=== PATIENT | female | born 1960 | race Caucasian/White ===

== ENCOUNTER 2020-06-11 07:12 | Outpatient (REF) | payer OTHER, SELFPAY ==
[2020-06-11 07:40] LABS: MANUAL DIFF FLAG NO
[2020-06-11 07:46] LABS: Basophils Percent Auto 0.5 % (0-2); Eosinophils Absolute Auto 0.1 X10*3/uL (0.0-0.4); Eosinophils Percent Auto 2.3 % (0-4); Hematocrit 40.9 % (37-47); Hemoglobin 13.5 g/dl (12.0-16.0); Imm Gran Abs Auto 0.02 X10*3/uL (0.00-0.03); Imm Gran Pct Auto 0.5 % (0.0-0.4); Lymphocytes Absolute Auto 1.7 X10*3/uL (1.2-4.9); Lymphocytes Percent Auto 38.6 % (20-40); Mean Corpuscular Hemoglobin 32.5 pg (27.0-33.0); Mean Corpuscular Volume 98.3 fL (80-98); Monocytes Absolute Auto 0.4 X10*3/uL (0.1-1.2); Monocytes Percent Auto 8.2 % (2-11); Neutrophils Absolute Auto 2.1 X10*3/uL (2.0-8.3); Neutrophils Percent Auto 49.9 % (45-73); Platelet Count 238 X10*3/uL (160-400); Red Blood Count 4.16 X10*6/uL (4.20-5.50); Red Cell Distribution Width 13.2 % (11.0-16.0); White Blood Count 4.3 X10*3/uL (4.8-10.8)
[2020-06-11 08:36] LABS: Alanine Aminotransferase 30 U/L (0-31); Albumin Level 4.2 g/dL (3.5-5.0); Alkaline Phosphatase 79 U/L (39-117); Aspartate Amino Transferase 26 U/L (5-31); Bilirubin Total 0.7 mg/dL (0.0-1.0); Blood Urea Nitrogen 17 mg/dL (9-16); Calcium 8.8 mg/dL (8.4-10.2); Cholesterol 194 mg/dL; Estimated Glomerular Filt Rate > 60; Glucose Fasting 99 mg/dL (60-99); HDL Cholesterol 58 mg/dL; LDL Cholesterol Calculated 122 mg/dl; Total Protein 6.9 g/dL (6.5-8.0); Triglycerides 71 mg/dL
[2020-06-11 08:58] LABS: Anion Gap 11 (12-20); Carbon Dioxide 27 mmol/L (22-29); Chloride 105 mmol/L (96-108); Potassium 4.3 mmol/l (3.3-5.1); Sodium 139 mmol/L (135-145)
== END 2020-06-11 07:13 | disposition home or self-care (01) ==
LOC: HO.LAB 07:12
PROVIDERS: PCP Internal Medicine; Visit Provider Internal Medicine
DX: Z00.00 Encounter for general adult medical examination without abnormal findings (principal); E55.9 Vitamin D deficiency, unspecified
CPT/HCPCS: 36415; 80053; 80061; 82306; 85025

== ENCOUNTER 2020-07-30 14:05 | Outpatient (REF) | payer OTHER, SELFPAY | END 2020-07-30 14:06 | disposition home or self-care (01) | LOC: HO.LNP 14:05 | PROVIDERS: Visit Provider Internal Medicine | DX: Z20.828 Contact with and (suspected) exposure to other viral communicable diseases (principal) | CPT/HCPCS: U0003 ==

== ENCOUNTER 2020-08-19 14:44 | Outpatient (REF) | payer OTHER, SELFPAY | END 2020-08-19 14:45 | disposition home or self-care (01) | LOC: HO.LNP 14:44 | PROVIDERS: Visit Provider Internal Medicine | DX: Z20.822 Contact with and (suspected) exposure to COVID-19 (principal) | CPT/HCPCS: U0003 ==

== ENCOUNTER 2021-06-05 09:01 | Outpatient (REF) | payer OTHER, SELFPAY ==
--- NOTE | ~2021-06-05 | MM_ITS ---
EXAMINATION: BONE DENSITOMETRY CLINICAL INDICATION: Osteopenia. COMPARISON: Previous BD dated 06/07/2018 and baseline BD dated 04/05/2012. TECHNIQUE: Using a [employer] DXA System (software version: 13.1) manufactured by [employer], dual-energy x-ray absorptiometry was performed of the lumbar spine and left hip. The images are of good technical quality. Summary results are attached. FINDINGS: AP SPINE L1-L4: Current: BMD 0.892 g/cm2, Z-score -0.6, T-score -2.4, osteopenia, 4.1% decrease from previous, 15.2% decrease from baseline (<5% change is not significant). Prior: BMD 0.930 g/cm2. Baseline: BMD 1.052 g/cm2. LEFT FEMUR, NECK: Current: BMD 0.638 g/cm2, Z-score -1.2, T-score -2.9, osteoporosis. Prior: BMD 0.690 g/cm2. Baseline: BMD 0.751 g/cm2. LEFT FEMUR, TOTAL: Current: BMD 0.741 g/cm2, Z-score -0.7, T-score -2.1, osteopenia, 5.6% decrease from previous, 10.5% decrease from baseline (<5% change is not significant). Prior: BMD 0.785 g/cm2. Baseline: BMD 0.828 g/cm2. IDENTIFIED RISK FACTORS: Osteoporosis, menopause. HISTORY OF FRACTURE: None listed. MEDICATIONS: Calcium supplements or multivitamin, vitamin D. MM/XR DEXA axial skeleton IMPRESSION: 1. DIAGNOSIS: Osteoporosis based on the lowest T-score value of -2.9 in the femoral neck applying World Health Organization criteria. 2. 2. 10-YEAR FRACTURE RISK PREDICTION, FRAX: According to the guidelines, FRAX calculation should only be performed on patients in the osteopenia bone density category. Therefore, FRAX was not performed on this patient. 3. Treatment Recommendations: NOF guidelines recommend consideration for treatment in postmenopausal women and men age 50 and older presenting with the following: -A hip or vertebral (clinical or morphometric) fracture. -T-score less than or equal to -2.5 at the femoral neck or spine after appropriate evaluation to exclude secondary causes. -Low bone mass at the hip or spine and a 10-year fracture probability by FRAX of greater than or equal to 3% for hip fracture or greater than or equal to 20% for major osteoporotic fracture based on the [place] adapted WHO algorithm. 4. Other Recommendations: All treatment decisions require clinical judgment and consideration of individual patient factors, including patient preferences, comorbidities, previous drug use, risk factors not captured in the FRAX model (e.g. frailty, falls, vitamin D deficiency, increased bone turnover, interval significant decline in bone density) and possible under or overestimation of fracture risk by FRAX. Additional medical evaluation for secondary cause of low bone mineral density may be appropriate. FUTURE SCAN RECOMMENDATION: People with diagnosed cases of osteoporosis or at high risk for fracture should have regular bone mineral density tests. For patients eligible for Medicare, routine testing is allowed once every 2 years. The testing frequency can be increased to one year for patients who have rapidly progressing disease, those who are receiving or discontinuing medical therapy to restore bone mass, or have additional risk factors.
[2021-06-05 10:51] LABS: MANUAL DIFF FLAG NO
[2021-06-05 11:18] LABS: Basophils Percent Auto 0.4 % (0-2); Eosinophils Absolute Auto 0.2 X10*3/uL (0.0-0.4); Eosinophils Percent Auto 2.4 % (0-4); Hematocrit 43.5 % (37-47); Hemoglobin 14.2 g/dl (12.0-16.0); Imm Gran Abs Auto 0.04 X10*3/uL (0.00-0.03); Imm Gran Pct Auto 0.6 % (0.0-0.4); Lymphocytes Absolute Auto 1.7 X10*3/uL (1.2-4.9); Mean Corpuscular HGB Conc 32.6 g/dl (31.0-35.0); Mean Corpuscular Hemoglobin 31.3 pg (27.0-33.0); Mean Platelet Volume 11.3 fL (9.4-12.3); Monocytes Absolute Auto 0.5 X10*3/uL (0.1-1.2); Monocytes Percent Auto 7.3 % (2-11); Neutrophils Absolute Auto 4.7 X10*3/uL (2.0-8.3); Neutrophils Percent Auto 65.3 % (45-73); Platelet Count 304 X10*3/uL (160-400); Red Blood Count 4.53 X10*6/uL (4.20-5.50); Red Cell Distribution Width 13.2 % (11.0-16.0); White Blood Count 7.2 X10*3/uL (4.8-10.8)
[2021-06-05 11:58] LABS: Alanine Aminotransferase 24 U/L (0-31); Albumin Level 4.5 g/dL (3.5-5.0); Alkaline Phosphatase 95 U/L (39-117); Anion Gap 12 (12-20); Aspartate Amino Transferase 25 U/L (5-31); Bilirubin Total 0.9 mg/dL (0.0-1.0); Blood Urea Nitrogen 13 mg/dL (9-16); Calcium 9.9 mg/dL (8.4-10.2); Carbon Dioxide 27 mmol/L (22-29); Chloride 105 mmol/L (96-108); Cholesterol 213 mg/dL; Estimated Glomerular Filt Rate > 60; Glucose Fasting 88 mg/dL (60-99); HDL Cholesterol 56 mg/dL; LDL Cholesterol Calculated 139 mg/dl; Potassium 4.1 mmol/L (3.3-5.1); Sodium 140 mmol/L (135-145); Total Protein 7.6 g/dL (6.5-8.0); Triglycerides 93 mg/dL
[2021-06-05 12:33] LABS: Vitamin D 25-OH Total 34.2 ng/mL (>30)
== END 2021-06-05 09:02 | disposition home or self-care (01) ==
LOC: HO.MAMMO 09:01
PROVIDERS: Visit Provider Internal Medicine
DX: Z13.820 Encounter for screening for osteoporosis (principal); M81.0 Age-related osteoporosis without current pathological fracture; Z78.0 Asymptomatic menopausal state; Z79.899 Other long term (current) drug therapy
CPT/HCPCS: 36415; 77080; 80053; 80061; 82306; 85025

== ENCOUNTER 2021-09-27 07:25 | Outpatient (REF) | payer OTHER, SELFPAY ==
[2021-09-27 08:27] LABS: Cholesterol 193 mg/dL; HDL Cholesterol 48 mg/dL; LDL Cholesterol Calculated 130 mg/dl; Triglycerides 79 mg/dL
== END 2021-09-27 07:26 | disposition home or self-care (01) ==
LOC: HO.LAB 07:25
PROVIDERS: PCP Internal Medicine; Visit Provider Internal Medicine
DX: E78.00 Pure hypercholesterolemia, unspecified (principal)
CPT/HCPCS: 36415; 80061

== ENCOUNTER 2021-12-08 14:04 | Outpatient (REF) | payer OTHER, SELFPAY ==
--- NOTE | ~2021-12-08 | XR_ITS ---
EXAMINATION: XR SINUSES CLINICAL INFORMATION: Persistent nosebleeds. COMPARISON: None TECHNIQUE: 5 views of the sinuses. FINDINGS: Paranasal sinuses appear clear without air-fluid levels. No fractures are identified. No radiodense foreign bodies. No significant mucosal thickening is appreciated. The left mastoid air cells appear well aerated. There is question of some opacification of a few right mastoid air cells. XR/XR sinus min 3V IMPRESSION: No evidence of acute sinusitis.
== END 2021-12-08 14:05 | disposition home or self-care (01) ==
LOC: HO.XRAY 14:04
PROVIDERS: PCP Internal Medicine; Visit Provider Internal Medicine
DX: R04.0 Epistaxis (principal)
CPT/HCPCS: 70220

== ENCOUNTER 2022-02-27 09:44 | Day surgery (SDC) | payer OTHER, SELFPAY ==
--- NOTE | 2022-02-26 09:17 | P.CONAN_ITS ---
Documented by User: Aleah Linares NP 02/26/22 09:17 HPI - Anesthesia Eval Consult details Narrative: 62yo F for Colonoscopy [facility] Past Medical History Medical History History of right bundle branch block (RBBB) HTN (hypertension) Surgical History Surgical History Hx of colonoscopy Social History Social History Patient Tobacco Use Status: Never used Tobacco Use of substances other than those prescribed or required for medical reasons: No Are you DNR?: No Advance Directives: No Advance Directives Information Provided: Yes Meds Allergies Allergy/AdvReac Type Severity Reaction Status Date / Time No Known Allergies Allergy Unverified 05/02/20 16:02 Home Medications Medication Instructions Recorded Confirmed Last Taken Type amlodipine 5 mg tablet 1 tab PO DAILY 02/23/22 02/27/22 02/27/22 History Exam Exam Date and Time: February 26, [id number] Assessment and Plan Assessment Anesthesia Assessment: Chart Reviewed Documented by User: Moe Sanchez MD 02/27/22 13:05 [facility] Past Medical History Medical History History of right bundle branch block (RBBB) HTN (hypertension) Family History Family history of problems with anesthesia: No Surgical History Surgical History Hx of colonoscopy History of Problems with Anesthesia: Yes (PONV) Social History Social History Patient Tobacco Use Status: Never used Tobacco Use of substances other than those prescribed or required for medical reasons: No Are you DNR?: No Advance Directives: No Advance Directives Information Provided: Yes Meds Allergies Allergy/AdvReac Type Severity Reaction Status Date / Time No Known Allergies Allergy Unverified 05/02/20 16:02 Home Medications Medication Instructions Recorded Confirmed Last Taken Type amlodipine 5 mg tablet 1 tab PO DAILY 02/23/22 02/27/22 02/27/22 History Exam Airway Mallampati Class: IV TM Dist: >3cm Neck ROM: Full Loose/Missing/Broken Teeth: Yes Heart: S1,S2 Lungs: b/l breath sounds Assessment and Plan Assessment Anesthesia Assessment: Anesthesia Plan Discussed Final Anesthetic Review Family History of Problems with Anesthesia: No History of Problems with Anesthesia: Yes (PONV) NPO: Yes ASA Class: II Final Preanesthetic Review: Meds/Allgs Chart Reviewed, Consent Obtained/Reviewed and Anes Risks/Benef Reviewed Patient Risk: Intermediate Procedure Risk: Intermediate Anesthetic Plan Anesthetic Plan: MAC: Disposition: Standard PACU
[2022-02-27 10:37] VITALS: BP 129/76; PULSE 61; RESP 17; TEMP 36.8; O2SAT 100; BMI 20.1
--- NOTE | 2022-02-27 10:58 | MHC.SHP ---
Pre-Procedural Eval Section A Date of Service: 02/27/22 The patient is an INPATIENT: No Changes since office visit: No Cold of Flu in the past 2 weeks, No New Medical Problems, No Changes in Medication and No Patient answered all questions The History & Physical has been completed within 30 days and I have reviewed it.: Yes Section B Chief Complaint: screening Allergies: Allergies Allergy/AdvReac Type Severity Reaction Status Date / Time No Known Allergies Allergy Unverified 05/02/20 16:02 Plan I have reviewed the history and physical and performed a pertinent physical examination on my patient. No changes have occurred unless specified.
[2022-02-27] MEDS: Lactated Ringers 1,000 ML 100 ML IVCONT (11:06)
--- NOTE | 2022-02-27 11:33 | P.BOP_ITS ---
Brief Operative Note Date of Service: 02/27/22 Pre-op diagnosis: screening Post-op diagnosis: same Procedure: colonoscopy Surgeon: Danny Hopper Anesthesia: MAC Was an Sectional [employer]er used for this Procedure?: No Estimated blood loss (mL): 0 Pathology: none sent Condition: stable Disposition: PACU
[2022-02-27 11:38] VITALS: BP 86/54; PULSE 65; RESP 16; TEMP 36.4; O2SAT 96
[2022-02-27 11:45] VITALS: BP 112/64
[2022-02-27 11:53] VITALS: BP 121/73; PULSE 63; RESP 18; O2SAT 100
[2022-02-27 12:07] VITALS: BP 132/67; PULSE 65; RESP 17; TEMP 36.1; O2SAT 100
--- NOTE | 2022-02-27 21:58 | OP_ITS ---
SURGEON: Danny Hopper MD INDICATIONS: Colon cancer screening. PREOPERATIVE DIAGNOSIS: POSTOPERATIVE DIAGNOSIS: PROCEDURE PERFORMED: Colonoscopy to the cecum. ESTIMATED BLOOD LOSS: COMPLICATIONS: ANESTHESIA: ASSISTANTS: SPECIMENS: MEDICATIONS: Monitored anesthesia care. DESCRIPTION OF PROCEDURE: History and physical were performed. The risks and benefits of the procedure were explained to the patient. Informed consent was obtained. The patient was placed in the left lateral decubitus position. A digital rectal exam was performed and was found to be normal. The Olympus pediatric video colonoscope was introduced into the rectum and advanced to the cecum without difficulty. The cecum was identified by transillumination, palpation, and identification of ileocecal valve. Examination was performed and the scope was removed. She tolerated the procedure well and was taken to recovery area in stable condition. FINDINGS: The terminal ileum was not examined. The visualized colonic mucosa was normal. The quality of the prep was good. No polyps were identified. There was minimal sigmoid diverticulosis. Retroflexed examination showed some small internal hemorrhoids. IMPRESSION: Normal screening colonoscopy. RECOMMENDATION: 1. Follow up as needed. 2. Repeat colonoscopy is recommended in 10 years for average risk individuals. MD ASHLYN Luevano/CLEO / [id number]
== END 2022-02-27 12:23 | disposition home or self-care (01) ==
PROVIDERS: PCP Internal Medicine; Visit Provider Internal Medicine Gastroenterology
PROC: 0DJD8ZZ Inspection of Lower Intestinal Tract, Via Natural or Artificial Opening Endoscopic (ICD-10-PCS; CPT 45378; principal; 2022-02-27 11:10)
DX: Z12.11 Encounter for screening for malignant neoplasm of colon (principal); K57.30 Diverticulosis of large intestine without perforation or abscess without bleeding; K64.8 Other hemorrhoids; I10 Essential (primary) hypertension; Z79.899 Other long term (current) drug therapy; Z86.16 Personal history of COVID-19
CPT/HCPCS: 45378

== ENCOUNTER 2022-06-11 07:30 | Outpatient (REF) | payer OTHER, SELFPAY ==
[2022-06-11 10:48] LABS: MANUAL DIFF FLAG NO
[2022-06-11 11:00] LABS: Basophils Percent Auto 0.6 % (0-2); Eosinophils Absolute Auto 0.1 X10*3/uL (0.0-0.4); Eosinophils Percent Auto 1.9 % (0-4); Hematocrit 39.5 % (37.0-47.0); Hemoglobin 13.1 g/dl (12.0-16.0); Imm Gran Abs Auto 0.01 X10*3/uL (0.00-0.03); Imm Gran Pct Auto 0.2 % (0.0-0.4); Lymphocytes Absolute Auto 1.8 X10*3/uL (1.2-4.9); Lymphocytes Percent Auto 37.2 % (20-40); Mean Corpuscular HGB Conc 33.2 g/dl (31.0-35.0); Mean Corpuscular Hemoglobin 31.6 pg (27.0-33.0); Mean Corpuscular Volume 95.2 fL (80.0-98.0); Mean Platelet Volume 11.2 fL (9.4-12.3); Monocytes Absolute Auto 0.4 X10*3/uL (0.1-1.2); Monocytes Percent Auto 8.5 % (2-11); Neutrophils Absolute Auto 2.5 x10*3/uL (2.0-8.3); Neutrophils Percent Auto 51.6 % (45-73); Platelet Count 275 X10*3/uL (160-400); Red Blood Count 4.15 X10*6/uL (4.20-5.50); Red Cell Distribution Width 13.3 % (11.0-16.0); White Blood Count 4.8 X10*3/uL (4.8-10.8)
[2022-06-11 11:18] LABS: Alanine Aminotransferase 23 U/L (0-31); Albumin Level 4.4 g/dL (3.5-5.0); Alkaline Phosphatase 75 U/L (39-117); Anion Gap 15 (12-20); Aspartate Amino Transferase 24 U/L (5-31); Bilirubin Total 1.1 mg/dL (0.0-1.0); Blood Urea Nitrogen 16 mg/dL (9-16); Calcium 9.6 mg/dL (8.4-10.2); Carbon Dioxide 25 mmol/L (22-29); Chloride 103 mmol/L (96-108); Cholesterol 205 mg/dL; Estimated Glomerular Filt Rate > 60; Glucose Fasting 86 mg/dL (60-99); HDL Cholesterol 53 mg/dL; LDL Cholesterol Calculated 137 mg/dl; Potassium 4.4 mmol/L (3.3-5.1); Sodium 139 mmol/L (135-145); Total Protein 7.3 g/dL (6.5-8.0); Triglycerides 75 mg/dL
== END 2022-06-11 07:31 | disposition home or self-care (01) ==
LOC: HO.10HDL 07:30
PROVIDERS: Visit Provider Internal Medicine
DX: Z00.00 Encounter for general adult medical examination without abnormal findings (principal)
CPT/HCPCS: 36415; 80053; 80061; 85025

== ENCOUNTER 2022-09-17 07:31 | Outpatient (REF) | payer OTHER, SELFPAY ==
[2022-09-17 10:45] LABS: Cholesterol 195 mg/dL; HDL Cholesterol 55 mg/dL; LDL Cholesterol Calculated 128 mg/dl; Triglycerides 63 mg/dL
== END 2022-09-17 07:32 | disposition home or self-care (01) ==
LOC: HO.10HDL 07:31
PROVIDERS: Visit Provider Internal Medicine
DX: E78.5 Hyperlipidemia, unspecified (principal)
CPT/HCPCS: 36415; 80061

== ENCOUNTER 2023-07-01 10:47 | Outpatient (REF) | payer OTHER, SELFPAY ==
--- NOTE | ~2023-07-01 | MM_ITS ---
EXAMINATION: BONE DENSITOMETRY CLINICAL INDICATION: Menopause. COMPARISON: Previous BD dated 06/05/2021 and baseline BD dated 04/05/2012. TECHNIQUE: Using a [employer] DXA System (software version: 13.1) manufactured by [employer], dual-energy x-ray absorptiometry was performed of the lumbar spine and left hip. The images are of good technical quality. Summary results are attached. FINDINGS: LEFT FEMUR, NECK: Current: BMD 0.601 g/cm2, Z-score -1.4, T-score -3.1, osteoporosis. Prior: BMD 0.638 g/cm2. Baseline: BMD 0.751 g/cm2. LEFT FEMUR, TOTAL: Current: BMD 0.665 g/cm2, Z-score -1.2, T-score -2.7, osteoporosis, 10.3% decrease from previous, 19.7% decrease from baseline (<5% change is not significant). Prior: BMD 0.741 g/cm2. Baseline: BMD 0.828 g/cm2. AP SPINE L1-L4: Current: BMD 0.857 g/cm2, Z-score -0.7, T-score -2.7, osteoporosis, 3.9% decrease from previous, 18.5% decrease from baseline (<5% change is not significant). Prior: BMD 0.892 g/cm2. Baseline: BMD 1.052 g/cm2. IDENTIFIED RISK FACTORS: Menopause. HISTORY OF FRACTURE: None listed. MEDICATIONS: Calcium or multivitamin. Vitamin D. MM/XR DEXA axial skeleton IMPRESSION: 1. DIAGNOSIS: Osteoporosis based on the lowest T-score value of -3.1 in the lumbar spine applying World Health Organization criteria. 2. 10-YEAR FRACTURE RISK PREDICTION, FRAX: According to the guidelines, FRAX calculation should only be performed on patients in the osteopenia bone density category. Therefore, FRAX was not performed on this patient. 3. Treatment Recommendations: NOF guidelines recommend consideration for treatment in postmenopausal women and men age 50 and older presenting with the following: -A hip or vertebral (clinical or morphometric) fracture. -T-score less than or equal to -2.5 at the femoral neck or spine after appropriate evaluation to exclude secondary causes. -Low bone mass at the hip or spine and a 10-year fracture probability by FRAX of greater than or equal to 3% for hip fracture or greater than or equal to 20% for major osteoporotic fracture based on the [place] adapted WHO algorithm. 4. Other Recommendations: All treatment decisions require clinical judgment and consideration of individual patient factors, including patient preferences, comorbidities, previous drug use, risk factors not captured in the FRAX model (e.g. frailty, falls, vitamin D deficiency, increased bone turnover, interval significant decline in bone density) and possible under or overestimation of fracture risk by FRAX. Additional medical evaluation for secondary cause of low bone mineral density may be appropriate. FUTURE SCAN RECOMMENDATION: People with diagnosed cases of osteoporosis or at high risk for fracture should have regular bone mineral density tests. For patients eligible for Medicare, routine testing is allowed once every 2 years. The testing frequency can be increased to one year for patients who have rapidly progressing disease, those who are receiving or discontinuing medical therapy to restore bone mass, or have additional risk factors.
== END 2023-07-01 10:48 | disposition home or self-care (01) ==
LOC: HO.MAMMO 10:47
PROVIDERS: PCP Internal Medicine; Visit Provider Internal Medicine
DX: Z13.820 Encounter for screening for osteoporosis (principal); Z78.0 Asymptomatic menopausal state
CPT/HCPCS: 77080

== ENCOUNTER 2023-07-21 07:24 | Outpatient (REF) | payer OTHER, SELFPAY ==
[2023-07-21 10:20] LABS: MANUAL DIFF FLAG NO
[2023-07-21 10:47] LABS: Basophils Percent Auto 0.6 % (0-2); Eosinophils Absolute Auto 0.1 X10*3/uL (0.0-0.4); Eosinophils Percent Auto 1.3 % (0-4); Hematocrit 41.5 % (37.0-47.0); Hemoglobin 13.5 g/dl (12.0-16.0); Imm Gran Abs Auto 0.03 X10*3/uL (0.00-0.03); Imm Gran Pct Auto 0.6 % (0.0-0.4); Lymphocytes Absolute Auto 1.6 X10*3/uL (1.2-4.9); Lymphocytes Percent Auto 29.2 % (20-40); Mean Corpuscular HGB Conc 32.5 g/dl (31.0-35.0); Mean Corpuscular Hemoglobin 31.7 pg (27.0-33.0); Mean Corpuscular Volume 97.4 fL (80.0-98.0); Mean Platelet Volume 11.1 fL (9.4-12.3); Monocytes Absolute Auto 0.4 X10*3/uL (0.1-1.2); Monocytes Percent Auto 7.7 % (2-11); Neutrophils Absolute Auto 3.3 x10*3/uL (2.0-8.3); Neutrophils Percent Auto 60.6 % (45-73); Platelet Count 291 X10*3/uL (160-400); Red Blood Count 4.26 X10*6/uL (4.20-5.50); Red Cell Distribution Width 13.2 % (11.0-16.0); White Blood Count 5.4 X10*3/uL (4.8-10.8)
[2023-07-21 11:33] LABS: Alanine Aminotransferase 20 U/L (0-31); Albumin Level 4.3 g/dL (3.5-5.0); Alkaline Phosphatase 83 U/L (39-117); Anion Gap 12 (12-20); Aspartate Amino Transferase 21 U/L (5-31); Bilirubin Total 0.7 mg/dL (0.0-1.0); Blood Urea Nitrogen 15 mg/dL (9-16); Calcium 9.2 mg/dL (8.4-10.2); Carbon Dioxide 26 mmol/L (22-29); Chloride 105 mmol/L (96-108); Cholesterol 201 mg/dL (<200); Estimated Glomerular Filt Rate > 60; Glucose Fasting 88 mg/dL (60-99); HDL Cholesterol 61 mg/dL (>40); LDL Cholesterol Calculated 129 mg/dL (<100); Potassium 3.9 mmol/L (3.3-5.1); Sodium 139 mmol/L (135-145); Total Protein 7.5 g/dL (6.5-8.0); Triglycerides 55 mg/dL (<150)
== END 2023-07-21 07:25 | disposition home or self-care (01) ==
LOC: HO.10HDL 07:24
PROVIDERS: Visit Provider Internal Medicine
DX: I10 Essential (primary) hypertension (principal); E78.00 Pure hypercholesterolemia, unspecified; M85.80 Other specified disorders of bone density and structure, unspecified site
CPT/HCPCS: 36415; 80053; 80061; 82306; 85025

== ENCOUNTER 2024-06-29 07:29 | Outpatient (REF) | payer OTHER, SELFPAY ==
[2024-06-29 10:37] LABS: MANUAL DIFF FLAG NO
[2024-06-29 10:41] LABS: White Blood Count 5.2 X10*3/uL (4.8-10.8)
[2024-06-29 10:42] LABS: Basophils Percent Auto 0.6 % (0-2); Eosinophils Absolute Auto 0.1 X10*3/uL (0.0-0.4); Eosinophils Percent Auto 1.7 % (0-4); Hematocrit 41.4 % (37.0-47.0); Hemoglobin 13.9 g/dl (12.0-16.0); Imm Gran Abs Auto 0.03 X10*3/uL (0.00-0.03); Imm Gran Pct Auto 0.6 % (0.0-0.4); Lymphocytes Percent Auto 38.3 % (20-40); Mean Corpuscular HGB Conc 33.6 g/dl (31.0-35.0); Mean Corpuscular Hemoglobin 32.1 pg (27.0-33.0); Mean Corpuscular Volume 95.6 fL (80.0-98.0); Mean Platelet Volume 10.4 fL (9.4-12.3); Monocytes Absolute Auto 0.4 X10*3/uL (0.1-1.2); Monocytes Percent Auto 7.3 % (2-11); Neutrophils Absolute Auto 2.7 x10*3/uL (2.0-8.3); Neutrophils Percent Auto 51.5 % (45-73); Platelet Count 271 X10*3/uL (160-400); Red Blood Count 4.33 X10*6/uL (4.20-5.50); Red Cell Distribution Width 13.3 % (11.0-16.0)
[2024-06-29 11:02] LABS: Alanine Aminotransferase 29 U/L (0-31); Albumin Level 4.3 g/dL (3.5-5.0); Alkaline Phosphatase 66 U/L (39-117); Anion Gap 10 (12-20); Aspartate Amino Transferase 25 U/L (5-31); Bilirubin Total 0.9 mg/dL (0.0-1.0); Blood Urea Nitrogen 15 mg/dL (9-16); Calcium 8.7 mg/dL (8.4-10.2); Carbon Dioxide 29 mmol/L (22-29); Chloride 104 mmol/L (96-108); Cholesterol 207 mg/dL (<200); Estimated Glomerular Filt Rate > 60; Glucose Fasting 92 mg/dL (60-99); HDL Cholesterol 55 mg/dL (>40); LDL Cholesterol Calculated 135 mg/dL (<100); Potassium 3.6 mmol/L (3.3-5.1); Sodium 139 mmol/L (135-145); Total Protein 7.3 g/dL (6.5-8.0); Triglycerides 87 mg/dL (<150)
[2024-06-29 11:18] LABS: Vitamin D 25-OH Total 37.9 ng/mL (>30)
== END 2024-06-29 07:30 | disposition home or self-care (01) ==
LOC: HO.10HDL 07:29
PROVIDERS: Visit Provider Internal Medicine
DX: I10 Essential (primary) hypertension (principal); E78.00 Pure hypercholesterolemia, unspecified; M81.0 Age-related osteoporosis without current pathological fracture
CPT/HCPCS: 36415; 80053; 80061; 82306; 85025

== ENCOUNTER 2024-09-17 22:15 | Emergency (ER) | payer OTHER, SELFPAY ==
--- NOTE | ~2024-09-17 | XR_ITS ---
CLINICAL HISTORY: fall, pain 4 view left wrist Comparison: CR - XR HAND LT MIN 3V - 09/17/24 22:46 EST Findings: Nondisplaced ulnar styloid fracture. There is a nondisplaced radial styloid fracture with extension to the articular surface. Proximal carpal row in anatomic alignment. No radiopaque foreign body. IMPRESSION: 1. Nondisplaced radial styloid and ulnar styloid fractures. This document has been electronically signed by: Speedy Loya MD on 09/17/2024 23:07:38
--- NOTE | ~2024-09-17 | XR_ITS ---
CLINICAL HISTORY: fall, pain 3 view left hand Comparison: None Findings: Please same-day wrist report for discussion of wrist fractures. No fracture deformity in the left hand. Degenerative change at the 1st carpometacarpal joint. No erosions. No radiopaque foreign body. IMPRESSION: No fracture deformity of the left hand. This document has been electronically signed by: Speedy Loya MD on 09/17/2024 23:05:14
[2024-09-17 22:21] VITALS: BP 123/71; PULSE 81; RESP 20; TEMP 36.6; O2SAT 100; BMI 21.0
--- NOTE | 2024-09-17 23:30 | ED_ITS ---
HPI - Extremity Injury (Upper) General Chief Complaint: Fall Stated Complaint: fell on left wrist-Dr Benoit is expecting her Time Seen by Provider: 09/17/24 23:10 Source: patient and old records reviewed Mode of arrival: ambulatory Limitations: no limitations History of Present Illness ED Provider: LALITA HPI narrative: 64 yo female with PMH of HTN R hand dominant trip and fall landing on L wrist has pain and swelling to L wrist, no headstrike or LOC no other injuries has never injured her L wrist before MD complaint: injury to: left and wrist Onset (ago): hour(s) (1 ) Other Extremity Injury: left: wrist Other injuries: none Handedness: right Place: outdoors Severity: mild Relieving factors: immobilization Exacerbating factors: movement of extremity Context: fall Associated symptoms: denies other symptoms Related Data Home Medications ?Medication ?Instructions ?Recorded ?Confirmed amlodipine 5 mg tablet 1 tab PO DAILY 02/23/22 02/27/22 Allergies Allergy/AdvReac Type Severity Reaction Status Date / Time No Known Allergies Allergy Verified 09/17/24 22:23 Review of Systems Review of Systems: Constitutional : No Fever, No Chills ENT/Mouth : No Ear Pain, No Hoarseness, No sore throat Eyes: No Eye Pain, No Swelling, No Redness, No Foreign Body Cardiovascular : No Chest Pain, No SOB Respiratory : No Cough, No Dyspnea Gastrointestinal : No Nausea, No Vomiting, No Diarrhea, No abdominal Pain Genitourinary : No Dysuria, No Hematuria Musculoskeletal : positive joint pain, No Myalgias, pos Joint Swelling Skin : No Skin lacerations, No rash Neuro : No Weakness, No Numbness, No Loss of Consciousness, No Dizziness, No Headache All other systems reviewed and are negative [facility] Past Medical History Attestation statement: The following information was validated with the patient. Source: old records reviewed Medical History HTN (hypertension) History of right bundle branch block (RBBB) Surgical History Hx of colonoscopy Social History Social History Patient Tobacco Use Status: Never used Tobacco Advance Directives: No Advance Directives Information Provided: Yes Physical Exam Vital Signs: Vital Signs: Last Vital Signs Temp 97.8 F 09/17/24 22:21 Pulse 81 09/17/24 22:21 Resp 20 09/17/24 22:21 BP 123/71 09/17/24 22:21 Pulse Ox 100 09/17/24 22:21 BMI result Body Mass Index 21.0 Appearance: Alert. Oriented X3. No acute distress. Eyes: Pupils equal, round and reactive to light. ENT: Pharynx normal. Neck: Normal inspection. Neck supple. CVS: Normal heart rate and rhythm. Pulses normal. Respiratory: No respiratory distress. Breath sounds normal. Abdomen: Soft and nontender. Skin: Skin warm and dry. Normal skin color. Normal skin turgor. Extremities: L wrist swelling distal radius and ulnar styloid mild bruising d istal NV intact, BCR in digits, 2+ radial pulse, no snuffbox ttp Neuro: Oriented X 3. No motor deficit. No sensory deficit. CN2-12 intact Medical Decision Making Medical Decision Making MDM Narrative: 64 yo female R hand dominant slip on ice no headstrike no neck pain, FOOSH L wrist - at this time NV intact will need xrays to rule out fracture, no signs of head or cspine injury Differential Diagnosis Differential Diagnoses: The differential diagnosis associated with the presentation includes fracture, contusion, sprain Independent Interpretation I performed an independent interpretation of an: Plain X-Ray (+ ulnar and radius fractures) Radiology Impression Discussion of test interpretation with radiology: I have reviewed the radiologist's reading. External Record Review External record reviewed: Outpatient record Prescription Management I considered prescription management with: Pain Medication Procedures Orthopedic Splinting/Casting Injury #1: Side: left Upper Extremity Injury Location: wrist Upper Extremity Immobilizer: volar splint Additional Comments: NV intact Discharge Plan Discharge Clinical Impression: Fracture of left wrist Qualifiers: Encounter type: initial encounter Fracture type: closed Qualified Code(s): S62.102A - Fracture of unspecified carpal bone, left wrist, initial encounter for closed fracture Patient Disposition: Home, Self-Care Instructions: Wrist Fracture in Adults (ED) Additional Instructions: return for cold blue hand severe pain rest ice elevate do not get splint wet follow up with orthopedics call tomorrow for appointment wear sling for comfort if needed tylenol and motrin for pain Findings: Nondisplaced ulnar styloid fracture. There is a nondisplaced radial styloid fracture with extension to the articular surface. Proximal carpal row in anatomic alignment. No radiopaque foreign body. IMPRESSION: 1. Nondisplaced radial styloid and ulnar styloid fractures. Prescriptions: No Action amlodipine 5 mg tablet 1 tab PO DAILY Referrals: [facility] [place] [facility] [Provider Group] Print Language: [place]an
--- OUTSIDE RECORDS SUMMARY | 2024-09-17 23:31 | XMS_ITS | Clinical Summary ---
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 - [facility] Lab [address] [facility] [place] [phone] Leeanna Echavarria MD Encounter for gynecological examination (general) (routine) without abnormal findings 06/26/2024 7:41 AM EST - 06/26/2024 11:59 PM EST Hospital Encounter [facility] at [address] [phone] Encounter for screening mammogram for breast cancer Discharge Disposition: Home or Self Care from Last 3 Months Social History Tobacco Use Types Packs/Day Years Used Date Smoking Tobacco: Never Assessed Sex and Gender Information Value Date Recorded Sex Assigned at Not on file Gender Identity Not on file Sexual Orientation Not on file Job Start Date Occupation Industry Not on file Not on file Not on file Obstetrics History Para Term AB IAB SAB Ectopic Multiple Livin g Live Births 0 Last Filed Vital Signs Vital Sign Reading Time Taken Comments Blood Pressure - - Pulse - - Temperature - - Respiratory Rate - - Oxygen Saturation - - Inhaled Oxygen Concentration - - Weight 52.2 kg (115 lb) 06/26/2024 7:48 AM EST Height 157.5 cm (5' 2 ) 06/26/2024 7:48 AM EST Body Mass Index 21.03 06/26/2024 7:48 AM EST Plan of Treatment Health Maintenance Due Date Last Done Comments DTaP,Tdap,and Td Vaccines (1 - Tdap) 1978 Zoster Vaccines (1 of 2) 2009 Colorectal Cancer Screening: Colonoscopy 07/18/2022 Depression Screening 07/18/2022 Hepatitis C Screening 07/18/2022 Osteoporosis Screening (Bone Density Screening) 07/18/2022 Social Influencers of Health Screening 07/18/2022 Falls Risk Assessment 01/27/2024 Pneumococcal Vaccine: 65+ Years (1 of 1 - PCV) 01/27/2024 COVID-19 Vaccine (5 - 2023- season) 2024 06/16/2023, 07/11/2021, 12/07/2020, Additional history exists Influenza Vaccine (#1) 2024 11/27/2020 Breast Cancer Screening 07/10/2026 07/10/20 24, 06/26/2024, 06/23/2023, Additional history exists Cervical Cancer Screening: Pap Smear 06/26/2027 06/26/2024 RSV Immunization Patients 60+ Years Old (1 - 1-dose 75+ series) 2034 HIB Vaccines Aged Out No longer eligi ble based on patient's age to complete this topic HPV Vaccines Aged Out No longer eligi ble based on patient's age to complete this topic Hepatitis A Vaccines Aged Out No long er eligible based on patient's age to complete this topic Hepatitis B Vaccines Aged Out No long er eligible based on patient's age to complete this topic IPV Vaccines Aged Out No longer eligi ble based on patient's age to complete this topic MMR Vaccines Aged Out No longer eligi ble based on patient's age to complete this topic Meningococcal ACWY Vaccine Aged Out N o longer eligible based on patient's age to complete this topic Pneumococcal Vaccine: Pediatrics (0 to 5 Years) and At-Risk Patients (6 to 64 Years) Aged Out No longer eligible based on patient's age to complete this topic RSV Immunization Patients Under 20 months Aged Out No longer eligible based on patient's age to complete this topic Varicella Vaccines Aged Out No longer eligible based on patient's age to complete this topic Procedures Procedure Name Priority Date/Time Associated Diagnosis Comments US BREAST LIMITED LEFT Routine 07/10/2024 2:49 PM EST Inversion of left nipple MG MAMMO DIGITAL DIAGNOSTIC LEFT Routine 07/10/2024 2:37 PM EST Inversion of left nipple MG MAMMO DIGITAL SCREENING W WOLF BILAT Routine 06/26/2024 8:01 AM EST Encounter for screening mammogram for breast cancer PAP SMEAR Routine 06/26/2024 12:00 AM EST Encounter for gynecological examination (general) (routine) without abnormal findings from Last 3 Months Results * US Breast Limited Left (07/10/2024 2:49 PM EST) Anatomical Region Laterality Modality Breast Left Ultrasound 07/10/2024 2:38 PM EST Impressions 07/10/2024 2:41 PM EST No evidence of malignancy is seen in the left breast. A negative mammogram in the presence of a clinically suspicious palpable abnormality does not preclude the possibility of malignancy or alter the indications for biopsy. ? BI-RADS CATEGORY: Mammography: 2 - BENIGN Ultrasound: 2 - BENIGN RECOMMENDATIONS: Screening bilateral mammogram is recommended in 1 year. Screening bilateral mammogram is recommended in 1 year. Mammo Location: [facility], [address] [place] [address], [id number], . -------- FINAL REPORT -------- Dictated By: Jacinta Bravo Dictated Date: 07/10/2024 14:38 ET Assigned Physician: Jacinta Bravo Reviewed and Electronically Signed By: Jacinta Bravo Signed Date: 07/10/2024 14:41 ET Workstation ID: [id number] Transcribed By: Self Edit Transcribed Date: 07/10/2024 14:38 ET Narrative 07/10/2024 2:41 PM EST HISTORY: Possible developing left nipple inversion noted at screening mammography. Patient states no change in appearance of the nipples which are flat bilaterally. Patient states her physician has noted this for approximately 20-30 years. No nipple discharge. COMPARISON: 06/26/24, 06/23/23, 06/12/22, 05/24/21 ?? MAMMOGRAPHY TECHNIQUE: CC and MLO spot compression tomosynthesis views of the anterior aspect of the left breast was performed. Targeted ultrasound of the left retroareolar area was also performed. BREAST DENSITY: C - The breasts are heterogeneously dense which may obscure small masses. FINDINGS: The additional views show the left nipple to lie flat. No underlying mass or architectural distortion is seen. ULTRASOUND Targeted ultrasound of the left retroareolar area shows no mass, architectural distortion, posterior acoustic shadowing, or abnormal vascularity. Visual inspection of both nipples shows symmetric, flat nipples bilaterally. Procedure Note Jacinta Bravo MD - 07/10/2024 HISTORY: Possible developing left nipple inversion noted at screeningmammography. Patient states no change in appearance of the nipples whichare flat bilaterally. Patient states her physician has noted this forapproximately 20-30 years. No nipple discharge. COMPARISON: 06/26/24, 06/23/23, 06/12/22, 05/24/21 MAMMOGRAPHY TECHNIQUE: CC and MLO spot compression tomosynthesis views of the anterioraspect of the left breast was performed. Targeted ultrasound of the left retroareolar area was also performed. BREAST DENSITY: C - The breasts are heterogeneously dense which mayobscure small masses. FINDINGS: The additional views show the left nipple to lie flat. No underlying massor architectural distortion is seen. ULTRASOUND Targeted ultrasound of the left retroareolar area shows no mass,architectural distortion, posterior acoustic shadowing, or abnormalvascularity. Visual inspection of both nipples shows symmetric, flat nipplesbilaterally. IMPRESSION: No evidence of malignancy is seen in the left breast. A negative mammogram in the presence of a clinically suspicious palpableabnormality does not preclude the possibility of malignancy or alter theindications for biopsy. BI-RADS CATEGORY: Mammography: 2 - BENIGN Ultrasound: 2 - BENIGN RECOMMENDATIONS: Screening bilateral mammogram is recommended in 1 year. Screeningbilateral mammogram is recommended in 1 year. Mammo Location: [facility], [address] [place] [address], [id number], . -------- FINAL REPORT -------- Dictated By: Jacinta Bravo Dictated Date: 07/10/2024 14:38 ET Assigned Physician: Jacinta Bravo Reviewed and Electronically Signed By: Jacinta Bravo Signed Date: 07/10/2024 14:41 ET Workstation ID: [id number] Transcribed By: Self Edit Transcribed Date: 07/10/2024 14:38 ET Abram Eddy MD IMG US PROCEDURES * MG Mammo Digital Diagnostic Left (07/10/2024 2:37 PM EST) Anatomical Region Laterality Modality Breast Left Mammography 07/10/2024 2:38 PM EST Impressions 07/10/2024 2:41 PM EST No evidence of malignancy is seen in the left breast. A negative mammogram in the presence of a clinically suspicious palpable abnormality does not preclude the possibility of malignancy or alter the indications for biopsy. ? BI-RADS CATEGORY: Mammography: 2 - BENIGN Ultrasound: 2 - BENIGN RECOMMENDATIONS: Screening bilateral mammogram is recommended in 1 year. Screening bilateral mammogram is recommended in 1 year. Mammo Location: [facility], [address] [place] [address], [id number], . -------- FINAL REPORT -------- Dictated By: Jacinta Bravo Dictated Date: 07/10/2024 14:38 ET Assigned Physician: Jacinta Bravo Reviewed and Electronically Signed By: Jacinta Bravo Signed Date: 07/10/2024 14:41 ET Workstation ID: [id number] Transcribed By: Self Edit Transcribed Date: 07/10/2024 14:38 ET Narrative 07/10/2024 2:41 PM EST HISTORY: Possible developing left nipple inversion noted at screening mammography. Patient states no change in appearance of the nipples which are flat bilaterally. Patient states her physician has noted this for approximately 20-30 years. No nipple discharge. COMPARISON: 06/26/24, 06/23/23, 06/12/22, 05/24/21 ?? MAMMOGRAPHY TECHNIQUE: CC and MLO spot compression tomosynthesis views of the anterior aspect of the left breast was performed. Targeted ultrasound of the left retroareolar area was also performed. BREAST DENSITY: C - The breasts are heterogeneously dense which may obscure small masses. FINDINGS: The additional views show the left nipple to lie flat. No underlying mass or architectural distortion is seen. ULTRASOUND Targeted ultrasound of the left retroareolar area shows no mass, architectural distortion, posterior acoustic shadowing, or abnormal vascularity. Visual inspection of both nipples shows symmetric, flat nipples bilaterally. Procedure Note Jacinta Bravo MD - 07/10/2024 HISTORY: Possible developing left nipple inversion noted at screeningmammography. Patient states no change in appearance of the nipples whichare flat bilaterally. Patient states her physician has noted this forapproximately 20-30 years. No nipple discharge. COMPARISON: 06/26/24, 06/23/23, 06/12/22, 05/24/21 MAMMOGRAPHY TECHNIQUE: CC and MLO spot compression tomosynthesis views of the anterioraspect of the left breast was performed. Targeted ultrasound of the left retroareolar area was also performed. BREAST DENSITY: C - The breasts are heterogeneously dense which mayobscure small masses. FINDINGS: The additional views show the left nipple to lie flat. No underlying massor architectural distortion is seen. ULTRASOUND Targeted ultrasound of the left retroareolar area shows no mass,architectural distortion, posterior acoustic shadowing, or abnormalvascularity. Visual inspection of both nipples shows symmetric, flat nipplesbilaterally. IMPRESSION: No evidence of malignancy is seen in the left breast. A negative mammogram in the presence of a clinically suspicious palpableabnormality does not preclude the possibility of malignancy or alter theindications for biopsy. BI-RADS CATEGORY: Mammography: 2 - BENIGN Ultrasound: 2 - BENIGN RECOMMENDATIONS: Screening bilateral mammogram is recommended in 1 year. Screeningbilateral mammogram is recommended in 1 year. Mammo Location: [facility], [address] [place] [address], [id number], . -------- FINAL REPORT -------- Dictated By: Jacinta Bravo Dictated Date: 07/10/2024 14:38 ET Assigned Physician: Jacinta Bravo Reviewed and Electronically Signed By: Jacinta Bravo Signed Date: 07/10/2024 14:41 ET Workstation ID: [id number] Transcribed By: Self Edit Transcribed Date: 07/10/2024 14:38 ET Abram Eddy MD IMG BI PROCEDURES * (ABNORMAL) MG Mammo Digital Screening w Wolf bilat (06/26/2024 8:01 AM EST) Anatomical Region Laterality Modality Breast Bilateral Mammography 06/26/2024 10:3 7 AM EST Impressions 06/26/2024 10:39 AM EST 1. Possible developing left nipple inversion, for which additional views are recommended. The patient will be called back. 2. Stable mammographic appearance of the right breast. No evidence of malignancy is seen. BI-RADS CATEGORY: 0 - INCOMPLETE - NEED ADDITIONAL IMAGING EVALUATION RECOMMENDATION: Additional left breast imaging recommended. Mammo Location: [facility], [address] [place] [address], [id number], . -------- FINAL REPORT -------- Dictated By: Jacinta Bravo Dictated Date: 06/26/2024 10:37 ET Assigned Physician: Jacinta Bravo Reviewed and Electronically Signed By: Jacnita Bravo Signed Date: 06/26/2024 10:39 ET Workstation ID: [id number] Transcribed By: Self Edit Transcribed Date: 06/26/2024 10:37 ET Narrative 06/26/2024 10:39 AM EST HISTORY: Screening. COMPARISON: 06/23/23, 06/12/22, 05/24/21 and earlier studies dating back to 2018. ?? TECHNIQUE: Bilateral digital breast tomosynthesis was performed in the CC and MLO projections. Computer aided detection with iCAD ProFound AI 3D 3.1 was employed. BREAST DENSITY: C - The breasts are heterogeneously dense which may obscure small masses. FINDINGS: The left nipple appears inverted, an apparent change from the previous studies. Spot compression tomosynthesis views of the anterior breast with nipple in profile are recommended for further assessment. Apparent partial inversion of the right nipple is unchanged from the previous exams. A 14 mm circumscribed round mass is long-term stable in the medial left breast, best seen in the CC projection, considered benign. There are rare benign calcifications. No architectural distortion is seen. The vascularity is unremarkable. Procedure Note Jacinta Bravo MD - 06/26/2024 HISTORY: Screening. COMPARISON: 06/23/23, 06/12/22, 05/24/21 and earlier studies dating back [id number]. TECHNIQUE: Bilateral digital breast tomosynthesis was performed in the CCand MLO projections. Computer aided detection with iCAD ProFound AI 3D 3.1was employed. BREAST DENSITY: C - The breasts are heterogeneously dense which mayobscure small masses. FINDINGS: The left nipple appears inverted, an apparent change from the previousstudies. Spot compression tomosynthesis views of the anterior breast withnipple in profile are recommended for further assessment. Apparent partial inversion of the right nipple is unchanged from theprevious exams. A 14 mm circumscribed round mass is long-term stable in the medial leftbreast, best seen in the CC projection, considered benign. There are rarebenign calcifications. No architectural distortion is seen. The vascularity is unremarkable. IMPRESSION: 1. Possible developing left nipple inversion, for which additional viewsare recommended. The patient will be called back. 2. Stable mammographic appearance of the right breast. No evidence ofmalignancy is seen. BI-RADS CATEGORY: 0 - INCOMPLETE - NEED ADDITIONAL IMAGING EVALUATION RECOMMENDATION: Additional left breast imaging recommended. Mammo Location: [facility], [address] [place] [address], [id number], . -------- FINAL REPORT -------- Dictated By: Jacinta Bravo Dictated Date: 06/26/2024 10:37 ET Assigned Physician: Jacinta Bravo Reviewed and Electronically Signed By: Jacinta Bravo Signed Date: 06/26/2024 10:39 ET Workstation ID: [id number] Transcribed By: Self Edit Transcribed Date: 06/26/2024 10:37 ET Abram Eddy MD IMG BI PROCEDURES * Pap smear (06/26/2024 12:00 AM EST) Interpretation Negative for intraepithelial lesion or malignancy 07/04/2024 7:40 AM EST [facility] General Categorization Negative 07/04/2024 7:40 AM EST [facility] Other Findings Atrophy 07/04/2024 7:40 AM [facility] Specimen Adequacy Satisfactory for evaluation 07/04/2024 7:40 AM EST [facility] Pap Methodology Liquid Based Pap Test 07/04/2024 7:40 AM EST [facility] Disclaimer The Pap test is a screening test which carries an inherent false negative rate. These test results should be correlated with the patient's clinical findings and history. This Pap test was processed using an automated screening system. Technical cytopathology services provided by [facility], at [address] [place] [address] (CLIA # [id number]/Pedro Wiggins MD, Vest Finisher.) 07/04/2024 7:40 AM [facility] Console Pap Interpretation Reported 07/04/2024 7:40 AM [facility] Brushing/Spatula Cervix uteri structure / Unknown 06/26/2024 06/27/2024 10:59 AM EST Leeanna Echavarria MD LAB CYTOLOGY ORD ERABLES [facility] [address] [place] [address], from Last 3 Months Care Teams Auto Top Mechanic Relationship Specialty Start Date End Date Abram Eddy MD [address] [place] [address] [address] [place], [place] PCP - General Internal Medicine 06/04/24
[2024-09-17 23:44] VITALS: BP 123/71; PULSE 81; RESP 20; TEMP 36.6; O2SAT 100
== END 2024-09-17 23:44 | disposition home or self-care (01) ==
PROVIDERS: Emergency Provider Emergency Medicine; PCP Internal Medicine
DX: S62.102A Fracture of unspecified carpal bone, left wrist, initial encounter for closed fracture (principal); M25.532 Pain in left wrist; W01.0XXA Fall on same level from slipping, tripping and stumbling without subsequent striking against object, initial encounter; Y93.89 Activity, other specified; Y92.89 Other specified places as the place of occurrence of the external cause; Y99.8 Other external cause status
CPT/HCPCS: 29125; 73110; 73130; 99282; 99284

== ENCOUNTER → 2024-09-17 22:42 | Outpatient (BNV) | payer OTHER, SELFPAY | PROVIDERS: Emergency Provider Emergency Medicine; PCP Internal Medicine; Visit Provider Radiology Diagnostic Radiology | DX: S52.515A Nondisplaced fracture of left radial styloid process, initial encounter for closed fracture (principal); S52.615A Nondisplaced fracture of left ulna styloid process, initial encounter for closed fracture | CPT/HCPCS: 73110; 73130 ==

== ENCOUNTER 2024-09-20 09:26 | Outpatient (REF) | payer OTHER, SELFPAY ==
--- NOTE | ~2024-09-20 | XR_ITS ---
EXAMINATION: XR WRIST, LEFT CLINICAL INFORMATION: M25.532 - Pain in left wrist COMPARISON: 09/17/24. TECHNIQUE: PA, lateral, and oblique views of the left wrist. FINDINGS: Redemonstration of intra-articular distal radial fracture without displacement, angulation, or significant impaction. There is comminution. No articular step-off. Redemonstration of ulnar styloid avulsion fracture. Probable triquetral avulsion fracture seen on the lateral radiograph. Subtle articular step-off of the medial hamate bone, possible subtle fracture. Carpal bones otherwise appear intact and normally aligned. 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 Persistent soft tissue swelling about the wrist. XR/XR wrist LT min 3V IMPRESSION: 1. Comminuted distal radial intra-articular fracture in anatomic alignment. No significant articular step-off evident. 2. Not previously described, probable triquetral avulsion fracture dorsally on the lateral radiograph. 3. Subtle cortical irregularity of the medial hamate, concerning for subtle fracture. 4. Ulnar styloid avulsion fracture. 5. Soft tissue swelling. Electronically signed by: Ariel Mckeon MD 09/20/2024 12:26 PM [facility]
--- OUTSIDE RECORDS SUMMARY | 2024-09-22 09:55 | XMS_ITS | Encounter Summary ---
Author Organization [facility] Address [address] [place] [address] Care Team Providers Care Services Executive Name Role Phone Abram Eddy MD Primary Care Provider [phone] Encounter Details Date Type Department Care Team (Latest Contact Info) Description 06/27/2024 Lab Requisition [facility] - Main Lab [address] [place] [phone] Leeanna Echavarria MD [address] [phone] Encounter for gynecological examination (general) (routine) without [...] lesion or malignancy 07/04/2024 7:40 AM EST [facility] General Categorization Negative 07/04/2024 7:40 AM EST [facility] Other Findings Atrophy 07/04/2024 7:40 AM [facility] Specimen Adequacy Satisfactory for evaluation 07/04/2024 7:40 AM [facility] Pap Methodology Liquid Based Pap Test 07/04/2024 7:40 AM [facility] Disclaimer The Pap test is a screening test which carries an inherent false negative rate. These test results should be correlated with the patient's clinical findings and history. This Pap test was processed using an automated screening system. Technical cytopathology services provided by [facility], at [address] [place] [address] (CLIA # [id number]/Pedro Wiggins MD, Director Of Claims.) 07/04/2024 7:40 AM [facility] Console Pap Interpretation Reported 07/04/2024 7:40 AM [facility] Brushing/Spatula Cervix uteri structure / Unknown 06/26/2024 06/27/2024 10:59 AM EST Leeanna Echavarria MD LAB CYTOLOGY ORD ERABLES [facility] [address] [place] [address], documented in this encounter Visit Diagnoses Diagnosis Encounter for gynecological examination (general) (routine) without abnormal findings documented in this encounter Care Teams Services Executive Relationship Specialty Start Date End Date Abram Eddy MD [address] [place] [address] Dr Simon [place] PCP - General Internal Medicine 06/04/24 documented as of this encounter
--- OUTSIDE RECORDS SUMMARY | 2024-09-22 09:55 | XMS_ITS | Patient Health Record ---
Author Organization [facility] Address [address] [place] [address] Care Team Providers Care Fruit Coordinator Name Role Phone Abram Eddy MD Primary Care Provider Danny Jules Jr Unavailable [phone] ALLERGIES No Known Allergies REASON FOR REFERRAL No Information MEDICATIONS Medication SIG (Take, Route, Frequency, Duration) Notes Start Date End Date Status MiraLax (colon prep) 17 GM/SCOOP mixed with Gatorade or Crystal Light Orally begin at 5:00 p.m. the day before the procedure for 1 day 01/28/2022 Active amLODIPine Besylate 5 MG TAKE 1 TABLET B Y MOUTH EVERY DAY Oral for 90 Active Vitamin D (Cholecalciferol) 10 MCG (400 UNIT) 1 tablet Orally Once a day for 30 day(s) 01/28/2022 Active Benadryl 25 MG 1 capsule at bedtime as needed Orally Once a day for 30 day(s) 01/28/2022 Active IMMUNIZATIONS Vaccine Route Administration Date Status Comme nts Influenza Unknown 11/27/2020 Administered SOCIAL HISTORY Tobacco Use: Social History Observation Description Date Details (start date - stop date) Never Smoker NA - NA Sex Assigned At : Social History Observation Description Sex Assigned At Unknown Tobacco Use/Smoking Question Answer Notes Patient is a nonsmoker Alcohol Screen Question Answer Notes Did you have a drink contain ing alcohol in the past year? Yes How often did you have a dri nk containing alcohol in the past year? 4 or more times a week (4 points) How many drinks did you have on a typical day when you were drinking in the past year? 1 or 2 drinks (0 point) How often did you have 6 or more drinks on one occasion in the past year? Never (0 point) Points 4 Interpretation Positive PROBLEMS Problem Type ICD Code Onset Dates Problem Status W/U Status Risk SNOMED Code Notes Problem Colon cancer screening (Z12.11) Active confirmed 444189064 Problem Encounter for other preprocedural examination (Z01.818) Active confirmed [id number] PLAN OF TREATMENT Future Test Test Name Order Date COLONOSCOPY 01/28/2022 Insurance Providers Payer Name Payer Address Payer Phone Subscriber Number Group Number Insured Name Patient Relationship to Insured Coverage Start Date Coverage End Date [facility] [address] [facility] [place] [phone] [id number] ELIER LOPEZ Self - patient is the insured MEDICAL (GENERAL) HISTORY Medical History History ICD Code Hypertension Sinus problems Covid 19 infection 10/07 Surgical History Surgery Date(Month/Year)
--- OUTSIDE RECORDS SUMMARY | 2024-09-22 09:56 | XMS_ITS | Clinical Summary ---
Author Organization [facility] Address [address] [place] [phone] Phone Care Team Providers Care Control System Manager Name Role Phone Abram Eddy MD Primary Care Provider [phone] Encounters Date Type Department Care Team Description 07/10/2024 2:16 PM EST - 07/10/2024 11:59 PM EST Hospital Encounter [facility] Ultrasound [address] [place] [phone] Inversion of left nipple Discharge Disposition: Home or Self Care 07/10/2024 1:47 PM EST - 07/10/2024 11:59 PM EST Hospital [facility] at [address] [phone] Inversion of left nipple Discharge Disposition: Home or Self Care 06/27/2024 Lab Requisition [facility] - Main Lab [address] [facility] [place] [phone] Leeanna Echavarria MD Encounter for gynecological examination (general) (routine) without abnormal findings 06/26/2024 7:41 AM EST - 06/26/2024 11:59 PM EST Hospital Encounter [facility] at [address] [phone] Encounter for screening mammogram for breast cancer [...] year. Mammo Location: [facility], [address] [place] [address], [address], . -------- FINAL REPORT -------- Dictated By: Jacinta Bravo Dictated Date: 07/10/2024 14:38 ET Assigned Physician: Jacinta Bravo Reviewed and Electronically Signed By: Jacinta Bravo Signed Date: 07/10/2024 14:41 ET Workstation ID: [id number] Transcribed By: Self Edit Transcribed Date: 07/10/2024 [...] year. Mammo Location: [facility], [address] [place] [address], [address], . -------- FINAL REPORT -------- Dictated By: Jacinta Bravo Dictated Date: 07/10/2024 14:38 ET Assigned Physician: Jacinta Bravo Reviewed and Electronically Signed By: Jacinta Bravo Signed Date: 07/10/2024 14:41 ET Workstation ID: [id number] Transcribed By: Self Edit Transcribed Date: 07/10/2024 [...] year. Mammo Location: [facility], [address] [place] [address], [address], . -------- FINAL REPORT -------- Dictated By: Jacinta Bravo Dictated Date: 07/10/2024 14:38 ET Assigned Physician: Jacinta Bravo Reviewed and Electronically Signed By: Jacinta Bravo Signed Date: 07/10/2024 14:41 ET Workstation ID: [id number] Transcribed By: Self Edit Transcribed Date: 07/10/2024 [...] year. Mammo Location: [facility], [address] [place] [address], [address], . -------- FINAL REPORT -------- Dictated By: Jacinta Bravo Dictated Date: 07/10/2024 14:38 ET Assigned Physician: Jacinta Bravo Reviewed and Electronically Signed By: Jacinta Bravo Signed Date: 07/10/2024 14:41 ET Workstation ID: [id number] Transcribed By: Self Edit Transcribed Date: 07/10/2024 [...] recommended. Mammo Location: [facility], [address] [place] [address], [address], . -------- FINAL REPORT -------- Dictated By: Jacinta Bravo Dictated Date: 06/26/2024 10:37 ET Assigned Physician: Jacinta Bravo Reviewed and Electronically Signed By: Jacinta Bravo Signed Date: 06/26/2024 10:39 ET Workstation ID: [id number] Transcribed By: Self Edit Transcribed Date: 06/26/2024 [...] 06/12/22, 05/24/21 and earlier studies dating back [id number]. TECHNIQUE: Bilateral digital breast tomosynthesis was performed [...] recommended. Mammo Location: [facility], [address] [place] [address], [address], . -------- FINAL REPORT -------- Dictated By: Jacinta Bravo Dictated Date: 06/26/2024 10:37 ET Assigned Physician: Jacinta Bravo Reviewed and Electronically Signed By: Jacinta Bravo Signed Date: 06/26/2024 10:39 ET Workstation ID: [id number] Transcribed By: Self Edit Transcribed Date: 06/26/2024 10:37 ET Abram Eddy MD IMG BI PROCEDURES * Pap smear (06/26/2024 12:00 AM EST) Interpretation Negative for intraepithelial lesion or malignancy 07/04/2024 7:[address] [facility] General Categorization Negative 07/04/2024 7:[address] [facility] Other Findings Atrophy 07/04/2024 7:40 AM [facility] Specimen Adequacy Satisfactory for evaluation 07/04/2024 7:[address] [facility] Pap Methodology Liquid Based Pap Test 07/04/2024 7:[address] [facility] Disclaimer The Pap test is a screening test which carries an inherent false negative rate. These test results should be correlated with the patient's clinical findings and history. This Pap test was processed using an automated screening system. Technical cytopathology services provided by [facility], at [address] [place] [address] (CLIA # [id number]/Pedro Wiggins MD, Supervisor Slate Splitting.) 07/04/2024 7:40 AM [facility] Console Pap Interpretation Reported 07/04/2024 7:40 AM [facility] Brushing/Spatula Cervix uteri structure / Unknown 06/26/2024 06/27/2024 10:59 AM EST Leeanna Echavarria MD LAB CYTOLOGY ORD ERABLES [facility] [address] [place] [address], from Last 3 Months Care Teams Control System Manager Relationship Specialty Start Date End Date Abram Eddy MD [address] [place] [address] Dr Mccartney [address] [place], [place] PCP - General Internal Medicine 06/04/24
== END 2024-09-20 09:27 | disposition home or self-care (01) ==
LOC: HO.HOSX 09:26
PROVIDERS: Visit Provider Orthopaedic Surgery
DX: M25.532 Pain in left wrist (principal); S52.502A Unspecified fracture of the lower end of left radius, initial encounter for closed fracture; S52.615A Nondisplaced fracture of left ulna styloid process, initial encounter for closed fracture; W00.0XXA Fall on same level due to ice and snow, initial encounter; Y93.01 Activity, walking, marching and hiking; Y92.9 Unspecified place or not applicable; Y99.9 Unspecified external cause status
CPT/HCPCS: 25600; 73110

== ENCOUNTER 2024-09-20 11:06 | Outpatient (AMB) | payer OTHER, SELFPAY ==
[2024-09-20 11:24] VITALS: BMI 21.0
--- NOTE | 2024-09-20 11:24 | A.OFFVIS_ITS ---
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 States she slipped on ice that was covered by snow. States she landed on her left side/hand. She felt immediate pain and was seen in ED same day where xrays were taken and a fracture was confirm. States she was splinted. Splint removed today for updated xrays. 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 She has swelling and bruising. Denies numbness or tingling in fingers. 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 She was seen in the ED and placed in a splint. She complains of pain, swelling, and bruising about her wrist. She says she is afraid to move her wrist due to her pain. She denies any numbness or tingling. 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 Review of Systems Const All systems reviewed & are unremarkable except as noted in HPI and below Physical Exam Vital Signs: BMI result Body Mass Index 21.0 Const General: cooperative, healthy appearing and no acute distress Orientation/consciousness: patient oriented x3 HEENT Head: Yes normocephalic and Yes atraumatic Eyes EOM: EOMs intact bilaterally Resp Effort & Inspection: normal respiratory effort and able to speak in complete sentences Cardio Jugular venous distension: no JVD Skin General skin exam: turgor normal Rashes: no rashes Neuro General: patient oriented x3 Extrem Other: Evaluation of Left Upper Extremity: The patient is alert, oriented, and in no acute distress Neuro: Median, Ulnar, Radial nerves motor and sensory intact and sensation is normal to the tips of all digits Vascular: Cap refill brisk ROM: With encouragement she can bring her fingers closed to a fist and back into full extension Skin: No lacerations or abrasions or evidence of open fracture General: Resolving Ecchymosis & swelling about the wrist Most tender over the fracture site No tenderness about the elbow Good elbow ROM Radiographs: 3 views of the right wrist were taken and viewed by me today in clinic. They show a comminuted intra-articular fracture of the left distal radius. There is a transverse fracture line through the metaphysis and then longitudinally extension to the articular surface at about the scapholunate interval, and also a fracture line extending into the DRUJ. There is a step-off with some depression of the radial styloid seen roughly at the scapholunate interval. Psych Appearance: grossly normal Affect: normal affect Attitude: cooperative Assessment & Plan Assessment & Plan (1) Fracture of left distal radius: Code(s): S52.502A - Unspecified fracture of the lower end of left radius, initial encounter for closed fracture Category: Medical (2) Closed nondisplaced fracture of styloid process of left ulna: Code(s): S52.615A - Nondisplaced fracture of left ulna styloid process, initial encounter for closed fracture Category: Medical Plan Assessment & Plan:' 1. Left distal radius fracture, comminuted, intra-articular From a fall on ice, DOI: 09/17/24 2. Left ulnar styloid fracture, From a fall on ice, DOI: 09/17/24 I educated her about this condition I discussed operative and non-operative treatment options The patient would like to proceed with surgery She was fitted for a new splint to be worn until her DOS The risks and benefits of operative treatment were discussed with the patient and the patient wishes to proceed with surgery. These risks include, but are not limited to risk of damage to blood vessels, nerves, tendons, infection, recurrence, incomplete relief of preoperative symptoms, persistent pain, possible need for further surgery and the risks associated with regional blocks and anesthesia. The plan is to take the patient to the operating room sometime on 09/25/24 for the following procedures: 1. Left distal radius ORIF, under general All of the preoperative paperwork including the consent was reviewed today. All the patient's questions were answered. The patient understands that they will be contacted by our patient scheduler soon to schedule this procedure She denies Diabetes, blood thinners, asthma, heart, lung, kidney issues Scribed for Misty Griffiths MD by Sundar Chavis, medical imaging tech, on 09/20/24 at 11:45 AM, EST. Orders: Orders XR wrist LT min 3V Today M25.532 - Pain in left wrist Coding Level of Care Code New Pt Level 4 (09256) Diagnoses Fracture of left distal radius S52.502A Closed nondisplaced fracture of styloid process of left ulna S52.615A
--- OUTSIDE RECORDS SUMMARY | 2024-09-20 12:26 | XMS_ITS | Encounter Summary ---
Author Organization [facility] [address] Address [address] [place] [address] Care Team Providers Care Supervisor Composing Room Name Role Phone Abram Eddy MD Primary Care Provider [phone] Encounter Details Date Type Department Care Team (Latest Contact Info) Description 06/27/[address] [facility] - Main Lab [address] [place] [phone] Leeanna Echavarria MD [address] [phone] Encounter for gynecological examination (general) (routine) without abnormal findings Social History Tobacco Use Types Packs/Day Years Used Date Smoking Tobacco: Never Assessed Sex and Gender Information Value Date Recorded Sex Assigned at Not on file Gender Identity Not on file Sexual Orientation Not on file Job Start Date Occupation Industry Not on file Not on file Not on file documented as of this encounter Plan of Treatment Not on file documented as of this encounter Procedures Procedure Name Priority Date/Time Associated Diagnosis Comments PAP SMEAR Routine 06/26/2024 12:00 AM EST Encounter for gynecological examination (general) (routine) without abnormal findings documented in this encounter Results * Pap smear (06/26/2024 12:00 AM EST) Interpretation Negative for intraepithelial lesion or malignancy 07/04/2024 7:40 AM EST [facility] General Categorization Negative 07/04/2024 7:40 AM EST [facility] Other Findings Atrophy 07/04/2024 7:40 AM [facility] Specimen Adequacy Satisfactory for evaluation 07/04/2024 7:40 AM [facility] Pap Methodology Liquid Based Pap Test 07/04/2024 7:40 AM [facility] Disclaimer The Pap test is a screening test which carries an inherent false negative rate. These test results should be correlated with the patient's clinical findings and history. This Pap test was processed using an automated screening system. Technical cytopathology services provided by [facility], at [address] [place] [address] (CLIA # [id number]/Pedro Wiggins MD, 2 Year Olds Preschool Teacher.) 07/04/2024 7:40 AM [facility] Console Pap Interpretation Reported 07/04/2024 7:40 AM [facility] Brushing/Spatula Cervix uteri structure / Unknown 06/26/2024 06/27/2024 10:59 AM EST Leeanna Echavarria MD LAB CYTOLOGY ORD ERABLES [facility] [address] [place] [address], documented in this encounter Visit Diagnoses Diagnosis Encounter for gynecological examination (general) (routine) without abnormal findings documented in this encounter Care Teams Supervisor Composing Room Relationship Specialty Start Date End Date Abram Eddy MD [address] [place] [address] Dr Simon [place] PCP - General Internal Medicine 06/04/24 documented as of this encounter
--- OUTSIDE RECORDS SUMMARY | 2024-09-20 12:26 | XMS_ITS | Clinical Summary ---
Author Organization [facility] Address [address] [place] [phone] Phone Care Team Providers Care Certified Credit Counselor Name Role Phone Abram Eddy MD Primary Care Provider [phone] Encounters Date Type Department Care Team Description 07/10/2024 2:16 PM EST - 07/10/2024 11:59 PM EST Hospital Encounter [facility] Ultrasound [address] [place] [phone] Inversion of left nipple Discharge Disposition: Home or Self Care 07/10/2024 1:47 PM EST - 07/10/2024 11:59 PM EST Hospital [facility] at [address] [phone] Inversion of left nipple Discharge Disposition: Home or Self Care 06/27/2024 Lab Requisition [facility] - Main Lab 299 [facility] [place] [phone] Leeanna Echavarria MD Encounter for gynecological examination (general) (routine) without abnormal findings 06/26/2024 7:41 AM EST - 06/26/2024 11:59 PM EST Hospital Encounter [facility] at [address] [phone] Encounter for screening mammogram for breast cancer [...] For Mammography at [facility], [address] [place] [address], [address], . -------- FINAL REPORT -------- Dictated By: Jacinta Bravo Dictated Date: 07/10/2024 14:38 ET Assigned Physician: Jacinta Bravo Reviewed and Electronically Signed By: Jacinta Bravo Signed Date: 07/10/2024 14:41 ET Workstation ID: [id number] Transcribed By: Self Edit Transcribed Date: 07/10/2024 [...] symmetric, flat nipples bilaterally. Procedure Note Jacinta Barvo MD - 07/10/2024 HISTORY: Possible developing left [...] For Mammography at [facility], [address] [place] [address], [address], . -------- FINAL REPORT -------- Dictated By: Jacinta Bravo Dictated Date: 07/10/2024 14:38 ET Assigned Physician: Jacinta Bravo Reviewed and Electronically Signed By: Jacinta Bravo Signed Date: 07/10/2024 14:41 ET Workstation ID: [id number] Transcribed By: Self Edit Transcribed Date: 07/10/2024 [...] For Mammography at [facility], [address] [place] [address], [address], . -------- FINAL REPORT -------- Dictated By: Jacinta Bravo Dictated Date: 07/10/2024 14:38 ET Assigned Physician: Jacinta Bravo Reviewed and Electronically Signed By: Jacinta Bravo Signed Date: 07/10/2024 14:41 ET Workstation ID: [id number] Transcribed By: Self Edit Transcribed Date: 07/10/2024 [...] For Mammography at [facility], [address] [place] [address], [address], . -------- FINAL REPORT -------- Dictated By: Jacinta Bravo Dictated Date: 07/10/2024 14:38 ET Assigned Physician: Jacinta Bravo Reviewed and Electronically Signed By: Jacinta Bravo Signed Date: 07/10/2024 14:41 ET Workstation ID: [id number] Transcribed By: Self Edit Transcribed Date: 07/10/2024 [...] For Mammography at [facility], [address] [place] [address], [address], . -------- FINAL REPORT -------- Dictated By: Jacinta Bravo Dictated Date: 06/26/2024 10:37 ET Assigned Physician: Jacinta Bravo Reviewed and Electronically Signed By: Jacinta Bravo Signed Date: 06/26/2024 10:39 ET Workstation ID: [id number] Transcribed By: Self Edit Transcribed Date: 06/26/2024 [...] 06/12/22, 05/24/21 and earlier studies dating back [id number]. TECHNIQUE: Bilateral digital breast tomosynthesis was performed [...] For Mammography at [facility], [address] [place] [address], [address], . -------- FINAL REPORT -------- Dictated By: Jacinta Bravo Dictated Date: 06/26/2024 10:37 ET Assigned Physician: Jacinta Bravo Reviewed and Electronically Signed By: Jacinta Bravo Signed Date: 06/26/2024 10:39 ET Workstation ID: [id number] Transcribed By: Self Edit Transcribed Date: 06/26/2024 10:37 ET Abram Eddy MD IMG BI PROCEDURES * Pap smear (06/26/2024 12:00 AM EST) Interpretation Negative for intraepithelial lesion or malignancy 07/04/2024 7:40 AM EST [facility] General Categorization Negative 07/04/2024 7:40 AM EST [facility] Other Findings Atrophy 07/04/2024 7:40 AM [facility] Specimen Adequacy Satisfactory for evaluation 07/04/2024 7:40 AM EST [facility] Pap Methodology Liquid Based Pap Test 07/04/2024 7:40 AM EST [facility] Disclaimer The Pap test is a screening test which carries an inherent false negative rate. These test results should be correlated with the patient's clinical findings and history. This Pap test was processed using an automated screening system. Technical cytopathology services provided by [facility], at [address] [place] [address] (CLIA # [id number]/Pedro Wiggins MD, Diesel Tractor Operator.) 07/04/2024 7:40 AM [facility] Console Pap Interpretation Reported 07/04/2024 7:40 AM [facility] Brushing/Spatula Cervix uteri structure / Unknown 06/26/2024 06/27/2024 10:59 AM EST Leeanna Echavarria MD LAB CYTOLOGY ORD ERABLES [facility] [address] [place] [address], from Last 3 Months Care Teams Certified Credit Counselor Relationship Specialty Start Date End Date Abram Eddy MD [address] [place] [address] Dr Mccartney [address] [place], [place] PCP - General Internal Medicine 06/04/24
== END 2024-09-20 12:36 | disposition home or self-care (01) ==
PROVIDERS: PCP Internal Medicine; Visit Provider Orthopaedic Surgery
DX: S52.502A Unspecified fracture of the lower end of left radius, initial encounter for closed fracture (principal); S52.615A Nondisplaced fracture of left ulna styloid process, initial encounter for closed fracture; W00.0XXA Fall on same level due to ice and snow, initial encounter
CPT/HCPCS: 25600; 99204

== ENCOUNTER → 2024-09-20 11:15 | Outpatient (BNV) | payer OTHER, SELFPAY | PROVIDERS: Visit Provider Radiology Diagnostic Radiology | DX: S52.572A Other intraarticular fracture of lower end of left radius, initial encounter for closed fracture (principal); S52.615A Nondisplaced fracture of left ulna styloid process, initial encounter for closed fracture | CPT/HCPCS: 73110 ==

== ENCOUNTER 2024-09-25 11:38 | Day surgery (SDC) | payer OTHER, SELFPAY ==
--- NOTE | ~2024-09-25 | FL_ITS ---
EXAMINATION: FL GUIDANCE ONLY HISTORY: DISTAL RADIUS ORIF LEFT COMPARISON: Correlation is made with plain films of the left wrist dated 09/20/2024. TECHNIQUE: Fluoroscopy time: 51.32 seconds. Cumulative Dose: 1.3501 mGy. DAP: 0.0816 mGym2 Images: 8. FINDINGS: Images demonstrate internal fixation of the previously seen distal radial fracture with a sideplate and multiple orthopedic screws. FL/FL guidance in OR IMPRESSION: Fluoroscopy during procedure. Please see procedure report for additional information. Electronically signed by: Frankie Stephens MD 09/26/2024 07:01 AM [facility]
[2024-09-25 12:43] VITALS: BMI 21.1
--- OUTSIDE RECORDS SUMMARY | 2024-09-25 12:57 | XMS_ITS | Patient Health Record ---
Author Organization [facility] Address [address] [place] [phone] Care Team Providers Care Hydration Plant Operator Name Role Phone Abram Eddy MD Primary Care Provider Danny Jules Jr Unavailable ALLERGIES No Known Allergies REASON FOR REFERRAL [...] Problem Colon cancer screening (Z12.11) Active confirmed [id number] Problem Encounter for other preprocedural examination (Z01.818) Active confirmed [id number] PLAN OF TREATMENT Future Test Test Name Order Date COLONOSCOPY 01/28/2022 Insurance Providers Payer Name Payer Address Payer Phone Subscriber Number Group Number Insured Name Patient Relationship to Insured Coverage Start Date Coverage End Date [facility] [address] [facility] [place] [phone] [id number] ELIER LOPEZ Self - patient is the insured MEDICAL (GENERAL) HISTORY Medical History History ICD Code Hypertension Sinus problems Covid 19 infection 10/07 Surgical History Surgery Date(Month/Year)
--- OUTSIDE RECORDS SUMMARY | 2024-09-25 12:57 | XMS_ITS | Encounter Summary ---
Author Organization [facility] Address [address] [place] [address] Care Team Providers Care Enrollment Clerk Name Role Phone Abram Eddy MD Primary Care Provider [phone] Encounter Details Date Type Department Care Team (Latest Contact Info) Description 06/27/2024 Lab Requisition [facility] [address] [place] [phone] Leeanna Echavarria MD [address] [phone] Encounter for gynecological examination (general) (routine) without abnormal findings Social History Tobacco Use Types Packs/Day Years Used Date Smoking Tobacco: Never Assessed Comments No Sex and Gender Information Value Date Recorded Sex Assigned at Not on file Legal Sex Female 9:21 PM EST Gender Identity Not on file Sexual Orientation Not on file documented as of this [...] lesion or malignancy 07/04/2024 7:40 AM EST [facility] General Categorization Negative 07/04/2024 7:40 AM EST [facility] Other Findings Atrophy 07/04/2024 7:[address] [facility] Specimen Adequacy Satisfactory for evaluation 07/04/2024 7:[address] [facility] Pap Methodology Liquid Based Pap Test 07/04/2024 7:[address] [facility] Disclaimer The Pap test is a screening test which carries an inherent false negative rate. These test results should be correlated with the patient's clinical findings and history. This Pap test was processed using an automated screening system. Technical cytopathology services provided by [facility], at [address] [place] [address] (CLIA # [id number]/Pedro Wiggins MD, Product Info Specialist.) 07/04/2024 7:[address] [facility] Console Pap Interpretation Reported 07/04/2024 7:[address] [facility] Brushing/Spatula Cervix uteri structure / Unknown 06/26/2024 06/27/2024 10:59 AM EST us Leeanna Echavarria MD LAB CYTOLOGY ORDERABLES Final Result [facility] [address] [place] [address], documented in this encounter Visit Diagnoses Diagnosis Encounter for gynecological examination (general) (routine) without abnormal findings documented in this encounter Care Teams Enrollment Clerk Relationship Specialty Start Date End Date Abram Eddy MD [address] [place] [address] Dr Simon [place] PCP - General Internal Medicine 06/04/24 documented as of this encounter
--- OUTSIDE RECORDS SUMMARY | 2024-09-25 12:57 | XMS_ITS | Clinical Summary ---
Author Organization [facility] Address [address] [place] [phone] Phone Care Team Providers Care Material Dispatcher Name Role Phone Abram Eddy MD Primary Care Provider [phone] Encounters Date Type Department Care Team Description 07/10/2024 2:16 PM EST - 07/10/2024 11:59 PM EST Hospital Encounter [facility] Ultrasound [address] [place] [phone] Inversion of left nipple Discharge Disposition: Home or Self Care 07/10/2024 1:47 PM EST - 07/10/2024 11:59 PM EST Hospital Encounter [facility] at [address] [phone] Inversion of left nipple Discharge Disposition: Home or Self Care 06/27/2024 Lab Requisition [facility] [address] [facility] [place] [phone] Leeanna Echavarria MD Encounter for gynecological examination (general) (routine) without abnormal findings 06/26/2024 7:41 AM EST - 06/26/2024 11:59 PM EST Hospital Encounter [facility] at [address] [phone] Encounter for screening mammogram for breast cancer Discharge Disposition: Home or Self Care from Last 3 Months Social History Tobacco Use Types Packs/Day Years Used Date Smoking Tobacco: Never Assessed Comments No Sex and Gender Information Value Date Recorded Sex Assigned at Not on file Legal Sex Female 9:21 PM EST Gender Identity Not on file Sexual Orientation Not on file Obstetrics History Para Term [...] Comments DTaP,Tdap,and Td Vaccines (1 - Tdap) 1966 Pneumococcal Vaccine: 50+ Years (1 of 1 - PCV) 2009 Zoster Vaccines (1 of 2) 2009 Colorectal Cancer Screening: Colonoscopy 07/18/2022 Depression Screening 07/18/2022 Hepatitis C Screening 07/18/2022 Osteoporosis Screening (Bone Density Screening) 07/18/2022 Social Influencers of Health Screening 07/18/2022 Falls Risk Assessment 01/27/2024 COVID-19 Vaccine ( season) 2024 06/16/2023, 07/11/2021, 12/07/2020, Additional history [...] patient's age to complete this topic Meningococcal B Vacine Aged Out No lo nger eligible based on patient's age to complete [...] year. Mammo Location: [facility], [address] [place] [address], [id number], . -------- FINAL REPORT -------- Dictated By: Jacinta Bravo Dictated Date: 07/10/2024 14:38 ET Assigned Physician: Jacinta Bravo Reviewed and Electronically Signed By: Jacinta Bravo Signed Date: 07/10/2024 14:41 ET Workstation ID: [id number] Transcribed By: Self Edit Transcribed Date: 07/10/2024 [...] year. Mammo Location: [facility], [address] [place] [address], [id number], . -------- FINAL REPORT -------- Dictated By: Jacinta Bravo Dictated Date: 07/10/2024 14:38 ET Assigned Physician: Jacinta Bravo Reviewed and Electronically Signed By: Jacinta Bravo Signed Date: 07/10/2024 14:41 ET Workstation ID: [id number] Transcribed By: Self Edit Transcribed Date: 07/10/2024 14:38 ET us Abram Eddy MD IMG US PROCEDURES Final Resul t * MG Mammo Digital Diagnostic Left (07/10/2024 [...] year. Mammo Location: [facility], [address] [place] [address], [phone], . -------- FINAL REPORT -------- Dictated By: Jacinta Bravo Dictated Date: 07/10/2024 14:38 ET Assigned Physician: Jacinta Bravo Reviewed and Electronically Signed By: Jacinta Bravo Signed Date: 07/10/2024 14:41 ET Workstation ID: [id number] Transcribed By: Self Edit Transcribed Date: 07/10/2024 [...] year. Mammo Location: [facility], [address] [place] [address], [phone], . -------- FINAL REPORT -------- Dictated By: Jacinta Bravo Dictated Date: 07/10/2024 14:38 ET Assigned Physician: Jacinta Bravo Reviewed and Electronically Signed By: Jacinta Bravo Signed Date: 07/10/2024 14:41 ET Workstation ID: [id number] Transcribed By: Self Edit Transcribed Date: 07/10/2024 14:38 ET us Abram Eddy MD IMG BI PROCEDURES Final Resul t * (ABNORMAL) MG Mammo Digital Screening w [...] recommended. Mammo Location: [facility], [address] [place] [address], [id number], . -------- FINAL REPORT -------- Dictated By: Jacinta Bravo Dictated Date: 06/26/2024 10:37 ET Assigned Physician: Jacinta Bravo Reviewed and Electronically Signed By: Jacinta Bravo Signed Date: 06/26/2024 10:39 ET Workstation ID: [id number] Transcribed By: Self Edit Transcribed Date: 06/26/2024 10:37 ET Narrative 06/26/2024 10:39 AM EST HISTORY: Screening. COMPARISON: 06/23/23, 06/12/22, 05/24/21 and earlier studies dating back to 2018. ?? TECHNIQUE: Bilateral digital breast tomosynthesis was performed in the CC and MLO projections. Computer aided detection with [employer] AI 3D 3.1 was employed. BREAST [...] 06/12/22, 05/24/21 and earlier studies dating back [id number]. TECHNIQUE: Bilateral digital breast tomosynthesis was performed in the CCand MLO projections. Computer aided detection with [employer] AI 3D 3.1was employed. BREAST DENSITY: [...] recommended. Mammo Location: [facility], [address] [place] [address], [phone], . -------- FINAL REPORT -------- Dictated By: Jacinta Bravo Dictated Date: 06/26/2024 10:37 ET Assigned Physician: Jacinta Bravo Reviewed and Electronically Signed By: Jacinta Bravo Signed Date: 06/26/2024 10:39 ET Workstation ID: [id number] Transcribed By: Self Edit Transcribed Date: 06/26/2024 10:37 ET us Abram Eddy MD IMG BI PROCEDURES Final Resul t * Pap smear (06/26/2024 12:00 AM EST) Interpretation Negative for intraepithelial lesion or malignancy 07/04/2024 7:[address] [facility] General Categorization Negative 07/04/2024 7:[address] [facility] Other Findings Atrophy [...] screening system. Technical cytopathology services provided by [facility], at [address] [place] [address] (CLIA # [id number]/Pedro Wiggins MD, Instant Print Operator.) 07/04/2024 7:[address] [facility] Console Pap Interpretation Reported 07/04/2024 7:[address] [facility] Brushing/Spatula Cervix uteri structure / Unknown 06/26/2024 06/27/2024 10:59 AM EST Leeanna Echavarria MD LAB CYTOLOGY ORDERABLES Final Result [facility] [address] [place] [address], from Last 3 Months Insurance [facility] [address] [place] [phone] Care Teams Material Dispatcher Relationship Specialty Start Date End Date Abram Eddy MD [address] [place] [address] Dr [address] [place], [place] PCP - General Internal Medicine 06/04/24
[2024-09-25 13:01] VITALS: BP 147/74; PULSE 61; RESP 16; TEMP 36.9; O2SAT 99
[2024-09-25] MEDS: Lactated Ringers 1,000 ML 100 ML IVCONT (13:10)
--- NOTE | 2024-09-25 13:49 | MHC.SHP ---
Pre-Procedural Eval Section A - 24 Hr Update-Section A only Date of Service: 09/25/24 The patient is an INPATIENT: No Changes since office visit: No Cold of Flu in the past 2 weeks, No New Medical Problems, No Changes in Medication and No Patient answered all questions The patient has been examined within 24 hours of the surgical procedure. The History & Physical has been completed within 30 days and I have reviewed it.: Yes Section B - Complete if H&P > 30 days Chief Complaint: Unspecified fracture of the lower end of left radi Allergies: Allergies Allergy/AdvReac Type Severity Reaction Status Date / Time No Known Allergies Allergy Verified 09/20/24 11:29 Plan I have reviewed the history and physical and performed a pertinent physical examination on my patient. No changes have occurred unless specified. Time Spent With Patient Time: Total time managing care of this patient today ____ minutes.
--- NOTE | 2024-09-25 13:50 | P.OP_ITS ---
Operative Note Operative Note Date of Service: 09/25/24 Narrative: Operative Note Narrative: Preop diagnosis: 1. Left Distal radius fracture, comminuted intra-articular Postop diagnosis: Same Procedure: 1. Left Distal radius fracture open reduction internal fixation, 2 part intra- articular Surgeon: Misty Griffiths MD Post Secondary Professional: None Anesthesia: General anesthesia plus regional block Findings: Intra-articular distal radius fracture with displacement of the dorsa l fragments The patient was also noted to have a fracture of the hamate on preop radiographs. Fluoroscopic images showed the 4th and 5th CMC joints to be in satisfactory position Implants: A 3 hole Accu Med volar locking plate, with 4 X 2.3 mm locking pegs/screws, and 3 3.5 mm cortical screws Tourniquet time: 41 minutes EBL: 5.0 ml Specimen: None Drains: None Complications: None Disposition: Brought to the recovery room in stable condition Plan: Follow-up in 10-14 days for wound check, suture removal and postop radiographs The patient will be placed in either a volar wrist splint. Encouraged no lifting of anything heavier than a cell phone. Please encourage active and passive range of motion of the digits. Follow-up at 4-5 weeks postop for repeat radiographs. Indications: The patient is a 64 year old woman with left distal radius fracture slipping on ice . The risks and benefits of operative treatment, including but not limited to risk of damage to blood vessels, nerves, tendons, infection, recurrence, persistent pain or numbness, incomplete resolution of preoperative symptoms, or need for further surgery were discussed with the patient and they wished to proceed with surgery. Procedure: Once consent was obtained patient was brought back to the operating suite and placed in the operating table in a supine position. A regional block was performed by the anesthesia team. Perioperative antibiotics and anesthesia was administered by the anesthesia team. A tourniquet was applied to the proximal aspect of the left upper extremity and the limb was prepped and draped in a standard surgical fashion. The limb was elevated exsanguinated with Esmarch bandage and the tourniquet inflated to 250 mm of mercury for a total tourniquet time of 41 minutes. The FluoroScan was used throughout the case to assess our reduction, and facilitate implant placement. On preop radiographs we could see that she had a step-off at the articular surface, primarily affecting the posterior fragments. A gentle closed reduction was 1st performed on the patient's left distal radius fracture, improving our reduction and resolving the step-off.. Was assessed radiographically before proceeding with the reduction internal fixation. I then made an 8 cm longitudinal incision over the distal aspect of the flexor carpi radialis tendon. The incision was made through the skin to the subcutaneous tissue using a 15. Blade. Then carefully dissected down to flexor carpi radialis tendon she tenotomy scissors. The FCR tendon sheath was then incised longitudinally using tenotomy scissors under direct visualization. The FCR tendon was then retracted ulnarly. I then made a longitudinal incision in the volar forearm fascia through the floor of FCR tendon sheath using tenotomy scissors under direct visualization. I identified the interval between the radial artery and the flexor tendons. This interval was developed further with my index finger, releasing some of the muscular fibers of the flexor pollicis longus. A dull weatlander retractor was then placed. I then created an ulnarly based flap of the pronator quadratus by releasing the radial and distal edges using a 15. Blade. A Briggs elevator was used to elevate the pronator quadratus from the volar surface of the distal radius. Our distal radius fracture was again visualized on fluoroscopic images. The fracture was reduced and I placed a short narrow 3 hole Accu Med volar locking plate on the volar surface of the distal radius. I placed a single K- wire through the distal aspect of the plate and into the distal radius. This was assessed using fluoroscopic images. I was satisfied with the placement of our plate. I then placed 4 X 2.3 mm locking screws/pegs in the distal aspect of the plate and distal radius by 1st drilling bicortically with a 1.8 mm drill bit, measuring with a depth gauge, and placing the appropriate length locking screws/pegs. I tried to make sure that the screws were long enough to capture the dorsal fragments, but not to protrude. The placement of our plate and screws was then assessed again using fluoroscopic images. The once satisfied with the placement of the volar locking plate and screws on the distal aspect of the distal radius, the plate was then reduced to the shaft of the radius. I then placed 3 3.5 mm cortical screws to the proximal aspect of the plate and into the shaft of the radius. This was done by 1st drilling bicortically with a 2.8 mm drill bit, measuring with a depth gauge, and placing the appropriate length screw. Final radiographs were then obtained. The DRUJ was assessed and found to be stable on exam. I was satisfied with our reduction and placement of all implants. Please note that I you also used the FluoroScan to assess our 4th and 5th CMC joints. She does have a mildly displaced hamate fracture see dad preop images. The 4th and 5th CMC joints appear to be well aligned and without subluxation or dislocation. At this point the wound was irrigated with normal saline. The pronator quadratus was reduced back over the volar locking plate using some 3-0 Vicryl suture material. The tourniquet was then deflated and hemostasis was obtained with a brief period of local pressure and bipolar monopolar electrocautery. The subcutaneous layer was then reapproximated using some 4-0 Vicryl suture, and the skin edges were reapproximated using some 5 0 Prolene suture. The wound was then infiltrated with some 1% lidocaine with epinephrine postop pain control. A sterile dressing and a short dorsal splint allowing for active flexion and extension of the digits was applied. The patient appears to have tolerated the procedure well and with no complications. All digits were well vascularized conclusion of the case.
--- NOTE | 2024-09-25 15:00 | P.CONAN_ITS ---
Documented by User: Aleah Linares NP 09/22/24 09:26 HPI - Anesthesia Eval Consult details Narrative: 64yo F for Left Radius Distal Fracture ORIF PMFSH Active Problems Active Problems: All Active Problems Closed nondisplaced fracture of styloid process of left ulna (Acute) Fracture of left distal radius (Acute) Past Medical History Medical History (Updated 09/20/24 @ 11:42 by Sundar Chavis) Fracture of left distal radius HTN (hypertension) History of right bundle branch block (RBBB) Family History Family history of problems with anesthesia: No Surgical History Surgical History Hx of colonoscopy History of Problems with Anesthesia: Yes (PONV) Social History Social History (Updated 09/20/24 @ 11:30 by KTAHRYN Calero) Are you a primary care transitions manager to a significant other at home: No Do you presently have visiting nurse or other home services: No Patient Tobacco Use Status: Never used Tobacco Second Hand Smoke Exposure: No Use of substances other than those prescribed or required for medical reasons: No Have you been hit, kicked, punched, or otherwise hurt by someone within the past year? 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 Meds Allergies Allergy/AdvReac Type Severity Reaction Status Date / Time No Known Allergies Allergy Verified 09/20/24 11:29 Active Medications: Current Medications Cefazolin Sodium/Dextrose (Ancef) 2 gm in 50 mls @ 100 mls/hr IV PREOP ONE Stop: 09/25/24 09:23 Home Medications ?Medication ?Instructions ?Recorded ?Confirmed ?Last Taken ?Type amlodipine 5 mg tablet 1 tab PO DAILY 02/23/22 09/25/24 09/24/24 History alendronate 35 mg tablet 35 mg PO DAILY 09/20/24 09/25/24 09/24/24 History Assessment and Plan Assessment Anesthesia Assessment: Chart Reviewed Final Anesthetic Review Family History of Problems with Anesthesia: No History of Problems with Anesthesia: Yes (PONV) Documented by User: Alta Moran DO 09/25/24 15:27 [facility] Past Medical History Medical History (Updated 09/20/24 @ 11:42 by Sundar Chavis) Fracture of left distal radius HTN (hypertension) History of right bundle branch block (RBBB) Family History Family history of problems with anesthesia: No Surgical History Surgical History Hx of colonoscopy History of Problems with Anesthesia: Yes (PONV after a colonoscopy) Social History Social History (Updated 09/20/24 @ 11:30 by KATHRYN Calero) Are you a primary care transitions manager to a significant other at home: No Do you presently have visiting nurse or other home services: No Patient Tobacco Use Status: Never used Tobacco Second Hand Smoke Exposure: No Use of substances other than those prescribed or required for medical reasons: No Have you been hit, kicked, punched, or otherwise hurt by someone within the past year? 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 Meds Allergies Allergy/AdvReac Type Severity Reaction Status Date / Time No Known Allergies Allergy Verified 09/20/24 11:29 Home Medications ?Medication ?Instructions ?Recorded ?Confirmed ?Last Taken ?Type amlodipine 5 mg tablet 1 tab PO DAILY 02/23/22 09/25/24 09/24/24 History alendronate 35 mg tablet 35 mg PO DAILY 09/20/24 09/25/24 09/24/24 History Exam Exam Date and Time: 09/25/24 1500 Height,Weight and Vital Signs: Height 5 ft 2 in Weight 52.248 kg Vital Signs Temperature 98.5 F 09/25/24 13:01 Pulse Rate 61 09/25/24 13:01 Respiratory Rate 16 09/25/24 13:01 Blood Pressure 147/74 H 09/25/24 13:01 Pulse Oximetry 99 09/25/24 13:01 Oxygen Delivery Method Room Air 09/25/24 13:01 Temperature 98.5 F 09/25/24 13:01 Pulse Rate 61 09/25/24 13:01 Respiratory Rate 16 09/25/24 13:01 Blood Pressure 147/74 H 09/25/24 13:01 Pulse Oximetry 99 09/25/24 13:01 Oxygen Delivery Method Room Air 09/25/24 13:01 Airway Mallampati Class: II TM Dist: >3cm Neck ROM: Full Loose/Missing/Broken Teeth: No (patient denies any loose or broken teeth) Heart: S1S2 Lungs: CTAB Assessment and Plan Assessment Anesthesia Assessment: Anesthesia Plan Discussed and Chart Reviewed Final Anesthetic Review Family History of Problems with Anesthesia: No History of Problems with Anesthesia: Yes (PONV after a colonoscopy) NPO: Yes ASA Class: I Final Preanesthetic Review: No Changes in Pt Med Stat, Meds/Allgs Chart Reviewed, Consent Obtained/Reviewed and Anes Risks/Benef Reviewed Patient Risk: Low Procedure Risk: Low Anesthetic Plan Anesthetic Plan: GA, Regional Block (left brachial plexus block) and Agree w/ Assess. and Plan Disposition: Standard PACU
[2024-09-25 17:55] VITALS: BP 127/62; PULSE 74; RESP 17; TEMP 36.3; O2SAT 95
[2024-09-25 18:00] VITALS: BP 117/55; PULSE 75; RESP 16; O2SAT 98
[2024-09-25 18:05] VITALS: BP 127/62; PULSE 82; RESP 16; O2SAT 98
[2024-09-25 18:10] VITALS: BP 133/63; PULSE 71; RESP 16; O2SAT 96
[2024-09-25 18:25] VITALS: BP 129/70; PULSE 69; RESP 16; TEMP 36.3; O2SAT 97
== END 2024-09-25 19:02 | disposition home or self-care (01) ==
PROVIDERS: PCP Internal Medicine; Visit Provider Orthopaedic Surgery
PROC: (CPT 25608; principal; 2024-09-25 13:40)
DX: S52.572A Other intraarticular fracture of lower end of left radius, initial encounter for closed fracture (principal); S52.615A Nondisplaced fracture of left ulna styloid process, initial encounter for closed fracture; S62.142A Displaced fracture of body of hamate [unciform] bone, left wrist, initial encounter for closed fracture; W00.0XXA Fall on same level due to ice and snow, initial encounter; Y93.01 Activity, walking, marching and hiking; Y92.9 Unspecified place or not applicable; Y99.9 Unspecified external cause status; I10 Essential (primary) hypertension; I45.10 Unspecified right bundle-branch block; Z79.899 Other long term (current) drug therapy
CPT/HCPCS: 25608; C1713; J0131; J0690; J1100; J2003; J2004; J2250; J2405; J2704; J3010

== ENCOUNTER → 2024-09-25 11:38 | Outpatient (BNV) | payer OTHER, SELFPAY | PROVIDERS: PCP Internal Medicine; Visit Provider Orthopaedic Surgery | DX: S52.572A Other intraarticular fracture of lower end of left radius, initial encounter for closed fracture (principal) | CPT/HCPCS: 25608 ==

== ENCOUNTER 2024-10-10 09:24 | Outpatient (REF) | payer OTHER, SELFPAY ==
--- NOTE | ~2024-10-10 | XR_ITS ---
EXAMINATION: XR WRIST, LEFT CLINICAL INFORMATION: M25.532 - Pain in left wrist COMPARISON: 09/20/2024. TECHNIQUE: PA, lateral, and oblique views of the left wrist. FINDINGS: There has been ORIF of a comminuted distal radial intra-articular fracture, with volar plate and screw fixation. Hardware is intact, well seated, with hindu of anatomic alignment. There is no articular step-off. There is a similar nondisplaced ulnar styloid avulsion fracture. No definite hamate fracture or additional carpal fracture is evident on his exam. Arthritic changes at the first CMC joint, unchanged. Mildly improved but persistent soft tissue swelling about the wrist. XR/XR wrist LT min 3V IMPRESSION: 1. ORIF distal radial intra-articular comminuted fracture with hindu of anatomic alignment. No complication evident. 2. Ulnar styloid avulsion fracture. 3. No definite hamate fracture seen on today's exam. Electronically signed by: Ariel Mckeon MD 10/11/2024 11:45 AM [facility]
--- OUTSIDE RECORDS SUMMARY | 2024-10-11 10:39 | XMS_ITS | Encounter Summary ---
Author Organization [facility] Address [address] [place] [address] Care Team Providers Care Global Program Manager Name Role Phone Abrma Eddy MD Primary Care Provider [phone] Encounter Details Date Type Department Care Team (Latest Contact Info) Description 06/27/2024 Lab Requisition [facility] Lab [address] [place] [phone] Leeanna Echavarria MD [address] [phone] Encounter for gynecological examination (general) (routine) without [...] lesion or malignancy 07/04/2024 7:40 AM EST [facility] General Categorization Negative 07/04/2024 7:40 AM EST [facility] Other Findings Atrophy 07/04/2024 7:40 [...] screening system. Technical cytopathology services provided by [facility], at [address] [place] [address] (CLIA # [id number]/Pedro Wiggins MD, Optimization Analyst.) 07/04/2024 7:40 AM [facility] Console Pap Interpretation Reported 07/04/2024 7:40 AM [facility] Brushing/Spatula Cervix uteri structure / Unknown 06/26/2024 06/27/2024 10:59 AM EST us Leeanna Echavarria MD LAB CYTOLOGY ORDERABLES Final Result [facility] [address] [place] [address], documented in this encounter Visit Diagnoses Diagnosis Encounter for gynecological examination (general) (routine) without abnormal findings documented in this encounter Care Teams Global Program Manager Relationship Specialty Start Date End Date Abram Eddy MD [address] [place] [address] Dr Simon [place] PCP - General Internal Medicine 06/04/24 documented as of this encounter
--- OUTSIDE RECORDS SUMMARY | 2024-10-11 10:39 | XMS_ITS | Patient Health Record ---
Author Organization [facility] Address [address] [place] [phone] Care Team Providers Care Retail Loan Officer Name Role Phone Abram Eddy MD Primary [...] Problem Colon cancer screening (Z12.11) Active confirmed [id number] Problem Encounter for other preprocedural examination (Z01.818) Active confirmed [id number] PLAN OF TREATMENT Future Test Test Name Order Date COLONOSCOPY 01/28/2022 Insurance Providers Payer Name Payer Address Payer Phone Subscriber Number Group Number Insured Name Patient Relationship to Insured Coverage Start Date Coverage End Date [facility] [address] [facility] [place] [phone] [id number] ELIER LOPEZ Self - patient is the insured MEDICAL (GENERAL) HISTORY Medical History History ICD Code Hypertension Sinus problems Covid 19 infection 10/07 Surgical History Surgery Date(Month/Year)
--- OUTSIDE RECORDS SUMMARY | 2024-10-11 10:39 | XMS_ITS | Clinical Summary ---
Author Organization [facility] Address [address] [place] [phone] Phone Care Team Providers Care Piece Worker Name Role Phone Abram Eddy MD Primary Care Provider [phone] Social History Tobacco Use Types Packs/Day Years [...] Procedure Name Priority Date/Time Associated Diagnosis Comments MG MAMMO DIGITAL DIAGNOSTIC LEFT Routine 07/10/2024 2:37 PM EST Inversion of left nipple PAP SMEAR Routine 06/26/2024 12:00 AM EST Encounter for gynecological examination (general) (routine) without abnormal findings from Last 3 Months or Most Recently Relevant to Health Maintenance Results * MG Mammo Digital Diagnostic Left (07/10/2024 [...] Mammo Location: [facility], [address] [place] [address], [address], . -------- FINAL REPORT -------- Dictated By: Jacinta Bravo Dictated Date: 07/10/2024 14:38 ET Assigned Physician: Jacinta Bravo Reviewed and Electronically Signed By: Jacinta Bravo Signed Date: 07/10/2024 14:41 ET Workstation ID: [id number] Transcribed By: Self Edit Transcribed Date: 07/10/2024 [...] Mammo Location: [facility], [address] [place] [address], [address], . -------- FINAL REPORT -------- Dictated By: Jacinta Bravo Dictated Date: 07/10/2024 14:38 ET Assigned Physician: Jacinta Bravo Reviewed and Electronically Signed By: Jacinta Bravo Signed Date: 07/10/2024 14:41 ET Workstation ID: [id number] Transcribed By: Self Edit Transcribed Date: 07/10/2024 14:38 ET us Abram Eddy MD IMG BI PROCEDURES Final Resul t * Pap smear (06/26/2024 12:00 AM EST) Interpretation Negative for intraepithelial lesion or malignancy 07/04/2024 7:40 AM EST [facility] General Categorization Negative 07/04/2024 7:40 AM EST [facility] Other Findings Atrophy 07/04/2024 7:40 AM [facility] Specimen Adequacy Satisfactory for evaluation 07/04/2024 7:40 AM [facility] Pap Methodology Liquid Based Pap Test 07/04/2024 7:40 AM [facility] Disclaimer The Pap test is a screening test which carries an inherent false negative rate. These test results should be correlated with the patient's clinical findings and history. This Pap test was processed using an automated screening system. Technical cytopathology services provided by [facility], at [address] [place] [address] (CLIA # [id number]/Pedro Wiggins MD, Recycler.) 07/04/2024 7:40 AM [facility] Console Pap Interpretation Reported 07/04/2024 7:40 AM [facility] Brushing/Spatula Cervix uteri structure / Unknown 06/26/2024 06/27/2024 10:59 AM EST Leeanna Echavarria MD LAB CYTOLOGY ORDERABLES Final Result [facility] [address] [place] [address], from Last 3 Months or Most Recently Relevant to Health Maintenance [place] [place] [address] Care Teams Piece Worker Relationship Specialty Start Date End Date Abram Eddy MD [address] [facility] [address]cc[address] [place] PCP - General Internal Medicine 06/04/24
== END 2024-10-10 09:25 | disposition home or self-care (01) ==
LOC: HO.HOSX 09:24
PROVIDERS: Visit Provider Orthopaedic Surgery
DX: M25.532 Pain in left wrist (principal); S52.502D Unspecified fracture of the lower end of left radius, subsequent encounter for closed fracture with routine healing; S52.615D Nondisplaced fracture of left ulna styloid process, subsequent encounter for closed fracture with routine healing
CPT/HCPCS: 73110

== ENCOUNTER 2024-10-10 15:34 | Outpatient (AMB) | payer OTHER, SELFPAY ==
--- NOTE | 2024-10-10 15:44 | MHC.OFFVIS ---
Intake Visit Reasons: PO LT distal radius ORIF 09/25/24 AR Intake Note: Dorothea is a 64 year old right hand dominant female who presents today for her post operative visit s/p left distal radius ORIF, DOS 09/25/[address] Griffiths. Dressing removed and xrays updated in office. Patient reports she is doing well, states her pain has been manageable. She has to d/c taking pain medication as it cause upset stomach. Allergies No Known Allergies Allergy (Verified 10/10/24 15:47) HPI HPI PO LT distal radius ORIF 09/25/24 AR: Details: Dorothea is a 64 year old right hand dominant woman who returns S/P right distal radius ORIF, DOS: 09/25/24. she has a right distal radius, ulnar styloid, and hamate fracture, from a fall on ice, DOI: 09/17/24. She says she is doing well She denies any numbness or tingling. 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 Sutures removed and Steri-Strips applied She can easily make a fist and extend all of her digits. Good pronosupination Minimal swelling & resolving ecchymosis Fracture site not-tender Sensation is intact Cap refill is brisk Radiographs: 3 views of the right wrist were taken and viewed by me today in clinic. They show a comminuted intra-articular fracture of the left distal radius with satisfactory fracture alignment & position of all implants. Looks like she may have had some slight compression, and the distal aspect of the plate looks slightly more elevated off of the volar aspect of the bone than on intraoperative radiographs. Again this could be due to some mild settling or compression at the fracture. Psych Appearance: grossly normal Affect: normal affect Attitude: cooperative Assessment & Plan Assessment & Plan (1) Fracture of left distal radius: Code(s): S52.502A - Unspecified fracture of the lower end of left radius, initial encounter for closed fracture Category: Medical (2) Closed nondisplaced fracture of styloid process of left ulna: Code(s): S52.615A - Nondisplaced fracture of left ulna styloid process, initial encounter for closed fracture Category: Medical (3) Fracture of hamate of left wrist: Code(s): S62.143A - Displaced fracture of body of hamate [unciform] bone, unspecified wrist, initial encounter for closed fracture Category: Medical Plan Assessment & Plan:' 1. Left distal radius fracture, S/P ORIF DOS: 09/25/24 From a fall on ice, DOI: 09/17/24 2. Left ulnar styloid fracture, From a fall on ice, DOI: 09/17/24 3. Left hamate fracture Seen during ORIF procedure From a fall on ice, DOI: 09/17/24 The patient appears to be doing well post-operatively I educated her about the post-operative course She was fitted for a volar wrist splint, to be worn like a cast except for showering, for the next 3 weeks. In 2 week she can remove her splint at rest to work on wrist ROM I discussed activity modifications, she is to lift nothing heavier than a cellphone for the next 3 weeks She will perform gentle finger ROM exercises at home She will follow up in 3 weeks, with X-rays, 3V R wrist, OOP Scribed for Misty Griffiths MD by Sundar Chavis, medical chief technician, on 10/10/24 at 3:50 PM, EST. Orders: Orders XR wrist LT min 3V Today M25.532 - Pain in left wrist Scribe Plan - Not visible on output: Scribed for Misty Griffiths MD by Sundar Chavis, medical chief technician, on [ ] at [ ], EST. Coding Level of Care Code Global (49133) Diagnoses Fracture of left distal radius S52.502A Closed nondisplaced fracture of styloid process of left ulna S52.615A Fracture of hamate of left wrist S62.143A
--- OUTSIDE RECORDS SUMMARY | 2024-10-10 19:20 | XMS_ITS | Encounter Summary ---
Author Organization [facility] Address [address] [place] [address] Care Team Providers Care Industrial Relations Specialist Name Role Phone Abram Eddy MD Primary Care Provider [phone] Encounter Details Date Type Department Care Team (Latest Contact Info) Description 06/27/2024 Lab Requisition [facility] Lab [address] [place] [phone] Leeanna Echavarria MD [address] [phone] Encounter for gynecological examination (general) (routine) without [...] lesion or malignancy 07/04/2024 7:40 AM EST [facility] General Categorization Negative 07/04/2024 7:40 AM EST [facility] Other Findings Atrophy 07/04/2024 7:40 AM [facility] Specimen Adequacy Satisfactory for evaluation 07/04/2024 7:40 AM [facility] Pap Methodology Liquid Based Pap Test 07/04/2024 7:40 AM [facility] Disclaimer The Pap test is a screening test which carries an inherent false negative rate. These test results should be correlated with the patient's clinical findings and history. This Pap test was processed using an automated screening system. Technical cytopathology services provided by [facility], at [address] [place] [address] (CLIA # [id number]/Pedro Wiggins MD, Territory Sales Representative.) 07/04/2024 7:40 AM [facility] Console Pap Interpretation Reported 07/04/2024 7:40 AM [facility] Brushing/Spatula Cervix uteri structure / Unknown 06/26/2024 06/27/2024 10:59 AM EST us Leeanna Echavarria MD LAB CYTOLOGY ORDERABLES Final Result [facility] [address] [place] [address], documented in this encounter Visit Diagnoses Diagnosis Encounter for gynecological examination (general) (routine) without abnormal findings documented in this encounter Care Teams Industrial Relations Specialist Relationship Specialty Start Date End Date Abram Eddy MD [address] [place] [address] Dr Simon [place] PCP - General Internal Medicine 06/04/24 documented as of this encounter
--- OUTSIDE RECORDS SUMMARY | 2024-10-10 19:20 | XMS_ITS | Patient Health Record ---
Author Organization [facility] Address [address] [place] [address] Care Team Providers Care Pipe Threading Machine Operator Name Role Phone Abram Eddy MD [...] Problem Colon cancer screening (Z12.11) Active confirmed [id number] Problem Encounter for other preprocedural examination (Z01.818) Active confirmed [id number] PLAN OF TREATMENT Future Test Test Name Order Date COLONOSCOPY 01/28/2022 Insurance Providers Payer Name Payer Address Payer Phone Subscriber Number Group Number Insured Name Patient Relationship to Insured Coverage Start Date Coverage End Date [facility] [address] [facility] [place] [phone] [id number] ELIER LOPEZ Self - patient is the insured MEDICAL (GENERAL) HISTORY Medical History History ICD Code Hypertension Sinus problems Covid 19 infection 10/07 Surgical History Surgery Date(Month/Year)
--- OUTSIDE RECORDS SUMMARY | 2024-10-10 19:21 | XMS_ITS | Clinical Summary ---
Author Organization [facility] Address [address] [place] [phone] Phone Care Team Providers Care Public Relations Name Role Phone Abram Eddy MD Primary Care Provider [phone] Encounters Date Type Department Care Team Description 07/10/2024 2:16 PM EST - 07/10/2024 11:59 PM EST Hospital Encounter [facility] Ultrasound [address] [place] [phone] Inversion of left nipple Discharge Disposition: Home or Self Care 07/10/2024 1:47 PM EST - 07/10/2024 11:59 PM EST Hospital [facility] at [address] [phone] Inversion of left nipple Discharge Disposition: Home or Self Care from [...] DTaP,Tdap,and Td Vaccines (1 - Tdap) 1978 Pneumococcal Vaccine: 50+ Years (1 of 1 [...] (#1) 2024 11/27/2020 Breast Cancer Screening 07/10/2026 07/10/20, 06/26/2024, 06/23/2023, Additional history exists Cervical Cancer [...] 2:37 PM EST Inversion of left nipple PAP SMEAR Routine 06/26/2024 12:00 AM EST Encounter for gynecological examination (general) (routine) without abnormal findings from Last 3 Months or Most Recently Relevant to Health Maintenance Results * US Breast Limited Left (07/10/2024 [...] year. Mammo Location: [facility], [address] [place] [address], [address], . -------- FINAL REPORT -------- Dictated By: Jacinta Bravo Dictated Date: 07/10/2024 14:38 ET Assigned Physician: Jacinta Bravo Reviewed and Electronically Signed By: Jacinta Bravo Signed Date: 07/10/2024 14:41 ET Workstation ID: [id number] Transcribed By: Self Edit Transcribed Date: 07/10/2024 [...] year. Mammo Location: [facility], [address] [place] [address], [address], . -------- FINAL REPORT -------- Dictated By: Jacinta Barvo Dictated Date: 07/10/2024 14:38 ET Assigned Physician: Jacinta Bravo Reviewed and Electronically Signed By: Jacinta Bravo Signed Date: 07/10/2024 14:41 ET Workstation ID: [id number] Transcribed By: Self Edit Transcribed Date: 07/10/2024 [...] year. Mammo Location: [facility], [address] [place] [address], [address], . -------- FINAL REPORT -------- Dictated By: Jacinta Bravo Dictated Date: 07/10/2024 14:38 ET Assigned Physician: Jacinta Bravo Reviewed and Electronically Signed By: Jacinta Bravo Signed Date: 07/10/2024 14:41 ET Workstation ID: [id number] Transcribed By: Self Edit Transcribed Date: 07/10/2024 [...] year. Mammo Location: [facility], [address] [place] [address], [address], . -------- FINAL REPORT -------- Dictated By: Jacinta Bravo Dictated Date: 07/10/2024 14:38 ET Assigned Physician: Jacinta Bravo Reviewed and Electronically Signed By: Jacinta Bravo Signed Date: 07/10/2024 14:41 ET Workstation ID: [id number] Transcribed By: Self Edit Transcribed Date: 07/10/2024 14:38 ET us Abram Eddy MD IMG BI PROCEDURES Final Resul t * Pap smear (06/26/2024 12:00 AM EST) Interpretation Negative for intraepithelial lesion or malignancy 07/04/2024 7:40 AM EST [facility] General Categorization Negative 07/04/2024 7:40 AM EST [facility] Other Findings Atrophy 07/04/2024 7:40 AM EST [facility] Specimen Adequacy Satisfactory for evaluation 07/04/2024 7:40 AM [facility] Pap Methodology Liquid Based Pap Test 07/04/2024 7:40 AM EST [facility] Disclaimer The Pap test is a screening test which carries an inherent false negative rate. These test results should be correlated with the patient's clinical findings and history. This Pap test was processed using an automated screening system. Technical cytopathology services provided by [facility], at [address] [place] [address] (CLIA # [id number]/Pedro Wiggins MD, Bottler.) 07/04/2024 7:40 AM [facility] Console Pap Interpretation Reported 07/04/2024 7:40 AM [facility] Brushing/Spatula Cervix uteri structure / Unknown 06/26/2024 06/27/2024 10:59 AM EST us Leeanna Echavarria MD LAB CYTOLOGY ORDERABLES Final Result [facility] [address] [place] [address], [place] [phone] from Last 3 Months or Most Recently Relevant to Health Maintenance Insurance [facility] [address] [place] [address] Care Teams Public Relations Relationship Specialty Start Date End Date Abram Eddy MD [address] [place] [address] Dr Mccartney [address] [place] PCP - General Internal Medicine 06/04/24
== END 2024-10-10 16:38 | disposition home or self-care (01) ==
PROVIDERS: PCP Internal Medicine; Visit Provider Orthopaedic Surgery
DX: S52.502A Unspecified fracture of the lower end of left radius, initial encounter for closed fracture (principal); S52.615A Nondisplaced fracture of left ulna styloid process, initial encounter for closed fracture; S62.143A Displaced fracture of body of hamate [unciform] bone, unspecified wrist, initial encounter for closed fracture
CPT/HCPCS: 99024

== ENCOUNTER → 2024-10-10 15:36 | Outpatient (BNV) | payer OTHER, SELFPAY | PROVIDERS: Visit Provider Radiology Diagnostic Radiology | DX: S52.572A Other intraarticular fracture of lower end of left radius, initial encounter for closed fracture (principal); S52.512A Displaced fracture of left radial styloid process, initial encounter for closed fracture | CPT/HCPCS: 73110 ==

== ENCOUNTER 2024-11-01 11:05 | Outpatient (AMB) | payer OTHER, SELFPAY ==
--- NOTE | 2024-11-01 11:28 | MHC.OFFVIS ---
Intake Visit Reasons: PO LT distal radius ORIF 09/25/24 AR Intake Note: Dorothea is a 64 year old right hand dominant female who presents today for a post operative visit s/p left distal radius fracture ORIF DOS: 09/25/24 w/ AR. At her last visit she was fitted for a volar wrist splint, to be worn like a cast except for showering, for the next 3 weeks. State she is working on gentle ROM and states she is doing well. She has discomfort at the ulnar aspect of wrist with making a fist and with flexion of wrist she also has discomfort at the dorsal aspect of wrist with movement. Allergies No Known Allergies Allergy (Verified 11/01/24 11:32) HPI HPI PO LT distal radius ORIF 09/25/24 AR: Details: Dorothea is a 64 year old right hand dominant woman who returns S/P right distal radius ORIF, DOS: 09/25/24. she has a right distal radius, ulnar styloid, and hamate fracture, from a fall on ice, DOI: 09/17/24. She says she is doing well & has been wearing her splint as instructed. She has been working on ROM exercises at home. She denies any numbness or tingling. 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 Full pronation Supination ~70 degrees Flexion: ~20 degrees Extension: ~30 degrees Resolved swelling & ecchymosis Fracture sites not-tender Radiographs: 3 views of the right hand & wrist were taken and viewed by me today in clinic. They show a comminuted intra-articular fracture of the left distal radius with satisfactory fracture alignment & position of all implants. The hamate fracture appears to be healing well with satisfactory fracture alignment. Psych Appearance: grossly normal Affect: normal affect Attitude: cooperative Assessment & Plan Assessment & Plan (1) Fracture of left distal radius: Code(s): S52.502A - Unspecified fracture of the lower end of left radius, initial encounter for closed fracture Category: Medical (2) Closed nondisplaced fracture of styloid process of left ulna: Code(s): S52.615A - Nondisplaced fracture of left ulna styloid process, initial encounter for closed fracture Category: Medical (3) Fracture of hamate of left wrist: Code(s): S62.143A - Displaced fracture of body of hamate [unciform] bone, unspecified wrist, initial encounter for closed fracture Category: Medical Plan Assessment & Plan: 1. Left distal radius fracture, S/P ORIF DOS: 09/25/24 From a fall on ice, DOI: 09/17/24 2. Left ulnar styloid fracture, From a fall on ice, DOI: 09/17/24 3. Left hamate fracture Seen during ORIF procedure From a fall on ice, DOI: 09/17/24 The patient appears to be doing well post-operatively I educated her about the post-operative course She should continue to wear her wrist splint when out of the house for the next 2 weeks. She will remove this at home I discussed activity modifications, she is to use her hand for lightweight activities, and slowly increase her weight as tolerated. She is still to avoid any heavy impact activities or falls. She will continue to work on ROM exercises at home I ordered OT hand therapy to work on wrist ROM exercises She should gently massage about the incision site to reduce the risk of hypersensitivity She will follow up in 4-6 weeks for a ROM check with Rod, no X-rays unless she has a new injury Scribed for Misty Griffiths MD by Sundar Chavis, medical coding auditor, on 11/01/24 at 11:45 AM, EST. Orders: Orders XR wrist LT min 3V Today M25.532 - Pain in left wrist XR hand LT min 3V Today M79.642 - Pain in left hand OT Evaluation and Treatment Today S52.502A - Unspecified fracture of the lower end of left radius, initial encounter for closed fracture, S52.615A - Nondisplaced fracture of left ulna styloid process, initial encounter for closed fracture, S62.143A - Displaced fracture of body of hamate [unciform] bone, unspecified wrist, initial encounter for closed fracture Coding Level of Care Code Global (59148) Diagnoses Fracture of left distal radius S52.502A Closed nondisplaced fracture of styloid process of left ulna S52.615A Fracture of hamate of left wrist S62.143A
--- OUTSIDE RECORDS SUMMARY | 2024-11-01 13:24 | XMS_ITS | Encounter Summary ---
Author Organization [facility] Address [address] [place] [address] Care Team Providers Care Diagnostic Technician Name Role Phone Abram Eddy MD Primary Care Provider [phone] Encounter Details Date Type Department Care Team (Latest Contact Info) Description 06/27/[address] [facility] [address] [place] [phone] Leeanna Echavarria MD [address] [phone] Encounter for gynecological examination (general) (routine) without [...] lesion or malignancy 07/04/2024 7:[address] [facility] General Categorization Negative 07/04/2024 7:40 AM EST [facility] Other Findings Atrophy 07/04/2024 7:40 AM [facility] Specimen Adequacy Satisfactory for evaluation 07/04/2024 7:40 AM [facility] Pap Methodology Liquid Based Pap Test 07/04/2024 7:40 AM [facility] Disclaimer The Pap test is a screening test which carries an inherent false negative rate. These test results should be correlated with the patient's clinical findings and history. This Pap test was processed using an automated screening system. Technical cytopathology services provided by [facility], at [address] [place] [id number] (CLIA # [id number]/Pedro Wiggins MD, Pallet Assembler.) 07/04/2024 7:40 AM [facility] Console Pap Interpretation Reported 07/04/2024 7:40 AM [facility] Brushing/Spatula Cervix uteri structure / Unknown 06/26/2024 06/27/2024 10:59 AM EST us Leeanna Echavarria MD LAB CYTOLOGY ORDERABLES Final Result [facility] [address] [place] [address], documented in this encounter Visit Diagnoses Diagnosis Encounter for gynecological examination (general) (routine) without abnormal findings documented in this encounter Care Teams Diagnostic Technician Relationship Specialty Start Date End Date Abram Eddy MD [address] [place] [address] Dr Simon [place] PCP - General Internal Medicine 06/04/24 documented as of this encounter
--- OUTSIDE RECORDS SUMMARY | 2024-11-01 13:25 | XMS_ITS | Clinical Summary ---
Author Organization [facility] Address [address] [place] [phone] Phone Care Team Providers Care Certified Performance Technologist Name Role Phone Abram Eddy MD Primary Care Provider [phone] Social History Tobacco Use Types Packs/Day Years [...] year. Mammo Location: [facility], [address] [place] [address], [id number], . -------- FINAL REPORT -------- Dictated By: Jacinta Bravo Dictated Date: 07/10/2024 14:38 ET Assigned Physician: Jacinat rBavo Reviewed and Electronically Signed By: Jacinta Bravo Signed Date: 07/10/2024 14:41 ET Workstation ID: [id number] Transcribed By: Self Edit Transcribed Date: 07/10/2024 [...] year. Mammo Location: [facility], [address] [place] [address], [phone], . -------- FINAL REPORT -------- Dictated By: Jacinta Bravo Dictated Date: 07/10/2024 14:38 ET Assigned Physician: Jacinta Bravo Reviewed and Electronically Signed By: Jacinta Bravo Signed Date: 07/10/2024 14:41 ET Workstation ID: [id number] Transcribed By: Self Edit Transcribed Date: 07/10/2024 14:38 ET us Abram Eddy MD IMG BI PROCEDURES Final Resul t * Pap smear (06/26/2024 12:00 AM EST) Interpretation Negative for intraepithelial lesion or malignancy 07/04/2024 7:40 AM EST [facility] General Categorization Negative 07/04/2024 7:40 AM EST [facility] Other Findings Atrophy 07/04/2024 7:40 AM [facility] Specimen Adequacy Satisfactory for evaluation 07/04/2024 7:40 AM [facility] Pap Methodology Liquid Based Pap Test 07/04/2024 7:40 AM [facility] Disclaimer The Pap test is a screening test which carries an inherent false negative rate. These test results should be correlated with the patient's clinical findings and history. This Pap test was processed using an automated screening system. Technical cytopathology services provided by [facility], at [address] [place] [id number] (CLIA # [id number]/Pedro Wiggins MD, Cloth Sander.) 07/04/2024 7:40 AM [facility] Console Pap Interpretation Reported 07/04/2024 7:40 AM [facility] Brushing/Spatula Cervix uteri structure / Unknown 06/26/2024 06/27/2024 10:59 AM EST Leeanna Echavarria MD LAB CYTOLOGY ORDERABLES Final Result [facility] [address] [place] [address], from Last 3 Months or Most Recently Relevant to Health Maintenance Insurance [address] [address] Care Teams Certified Performance Technologist Relationship Specialty Start Date End Date Abram Eddy MD [address] [facility] [address] [place] PCP - General Internal Medicine 06/04/24
--- OUTSIDE RECORDS SUMMARY | 2024-11-01 13:25 | XMS_ITS | Patient Health Record ---
Author Organization [facility] Address [address] [place] [phone] Care Team Providers Care Rehabilitation Teacher Name Role Phone Abrma Eddy MD Primary Care Provider Danny Jules Jr Unavailable [phone] Allergies No Known Allergies Reason For Referral No Information Medications Medication SIG (Take, Route, Frequency, Duration) Notes [...] a day for 30 day(s) 01/28/2022 Active Immunizations Vaccine Route Administration Date Status Comme nts Influenza Unknown 11/27/2020 Administered Social History Tobacco Use: Social History Observation Description Date Details (start date - stop date) Never Smoker NA - NA Tobacco Use/Smoking Question Answer Notes Patient is [...] Never (0 point) Points 4 Interpretation Positive Problems Problem Type SNOMED Code ICD Code Onset Dates Problem Status W/U Status Risk Notes Problem 013193561 Colon cancer screening (Z12.11) Active confirmed Problem [id number] Encounter for other preprocedural examination (Z01.818) Active confirmed Plan Of Treatment Future Test Test Name Order Date COLONOSCOPY 01/28/2022 Insurance Providers Payer Name Payer Address Payer Phone Subscriber Number Group Number Insured Name Patient Relationship to Insured Coverage Start Date Coverage End Date [facility] [address] [place] [phone] [id number] ELIER LOPEZ Self - patient is the insured Medical (General) History Medical History History ICD Code Hypertension Sinus problems Covid 19 infection 10/07 Surgical History Surgery Date(Month/Year)
== END 2024-11-01 11:57 | disposition home or self-care (01) ==
LOC: HO.HOS 11:06
PROVIDERS: Visit Provider Orthopaedic Surgery
DX: S52.502A Unspecified fracture of the lower end of left radius, initial encounter for closed fracture (principal); S52.615A Nondisplaced fracture of left ulna styloid process, initial encounter for closed fracture; S62.143A Displaced fracture of body of hamate [unciform] bone, unspecified wrist, initial encounter for closed fracture
CPT/HCPCS: 99024

== ENCOUNTER → 2024-11-01 11:09 | Outpatient (BNV) | payer OTHER, SELFPAY | PROVIDERS: Visit Provider Radiology Diagnostic Radiology | DX: S52.572A Other intraarticular fracture of lower end of left radius, initial encounter for closed fracture (principal) | CPT/HCPCS: 73110; 73130 ==

== ENCOUNTER 2024-11-01 12:08 | Outpatient (REF) | payer OTHER, SELFPAY ==
--- NOTE | ~2024-11-01 | XR_ITS ---
EXAMINATION: XR WRIST 3 OR MORE VIEWS LEFT, XR HAND 3 OR MORE VIEWS LEFT HISTORY: M25.532 - Pain in left wrist. Attention hamate COMPARISON: Comparison is made with the prior examination dated 10/10/2024. FINDINGS: Six views of the left hand and wrist are submitted. Osseous mineralization is normal. The patient is again noted to be status post internal fixation of a comminuted fracture of the distal radial metaphysis. The appearance is not significantly changed from the prior study. The fracture line remains visible. Again seen is a fracture of the ulnar styloid. There is mild degenerative change of the 1st carpometacarpal joint. The soft tissues are unremarkable. XR/XR wrist LT min 3V IMPRESSION: Internal fixation of a comminuted fracture of the distal radial metaphysis without significant change. If there is clinical concern for additional fractures of the carpus, CT could be performed. Electronically signed by: Frankie Stephens MD 11/02/2024 07:45 AM EDT
--- NOTE | ~2024-11-01 | XR_ITS ---
EXAMINATION: XR WRIST 3 OR MORE VIEWS LEFT, XR HAND 3 OR MORE VIEWS LEFT HISTORY: M25.532 - Pain in left wrist. Attention hamate COMPARISON: Comparison is made with the prior examination dated 10/10/2024. FINDINGS: Six views of the left hand and wrist are submitted. Osseous mineralization is normal. The patient is again noted to be status post internal fixation of a comminuted fracture of the distal radial metaphysis. The appearance is not significantly changed from the prior study. The fracture line remains visible. Again seen is a fracture of the ulnar styloid. There is mild degenerative change of the 1st carpometacarpal joint. The soft tissues are unremarkable. XR/XR hand LT min 3V IMPRESSION: Internal fixation of a comminuted fracture of the distal radial metaphysis without significant change. If there is clinical concern for additional fractures of the carpus, CT could be performed. Electronically signed by: Frankie Stephens MD 11/02/2024 07:45 AM EDT
== END 2024-11-01 12:09 | disposition home or self-care (01) ==
LOC: HO.HOSX 12:08
PROVIDERS: Visit Provider Orthopaedic Surgery
DX: M25.532 Pain in left wrist (principal); M79.642 Pain in left hand; S52.502D Unspecified fracture of the lower end of left radius, subsequent encounter for closed fracture with routine healing; Z98.890 Other specified postprocedural states
CPT/HCPCS: 73110; 73130

== ENCOUNTER 2024-11-28 15:24 | Outpatient (AMB) | payer OTHER, SELFPAY ==
--- NOTE | 2024-11-28 15:38 | A.OFFVIS_ITS ---
Vital Signs 11/28/24 15:42 Height 5 ft 2 in Weight 115 lb BMI 21.0 Intake Visit Reasons: PO LT distal radius ORIF 09/25/24 AR Intake Note: Dorothea is a 64 year old right hand dominant female who presents today for a post operative visit s/p left distal radius fracture ORIF DOS: 09/25/24 w/ AR. ROM check. States she has notice improvement, pain with pressure however she is doing well. Allergies No Known Allergies Allergy (Verified 11/28/24 15:41) HPI HPI PO LT distal radius ORIF 09/25/24 AR: Details: Dorothea is a 64 year old right hand dominant woman who returns S/P right distal radius ORIF, DOS: 09/25/24. she has a right distal radius, ulnar styloid, and hamate fracture, from a fall on ice, DOI: 09/17/24. She says she is doing well & has been wearing her splint as instructed. She has been working on ROM exercises at home & attending OT hand therapy. She says she has noticed an improvement in her pain overall, but this is still present with certain activities or with pressure. She denies any numbness or tingling. 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 Full pronation Supination ~70 degrees Flexion: ~45 degrees Extension: ~50 degrees Resolved swelling & ecchymosis Fracture sites not-tender Psych Appearance: grossly normal Affect: normal affect Attitude: cooperative Assessment & Plan Assessment & Plan (1) Fracture of left distal radius: Code(s): S52.502A - Unspecified fracture of the lower end of left radius, initial encounter for closed fracture Category: Medical (2) Closed nondisplaced fracture of styloid process of left ulna: Code(s): S52.615A - Nondisplaced fracture of left ulna styloid process, initial encounter for closed fracture Category: Medical (3) Fracture of hamate of left wrist: Code(s): S62.143A - Displaced fracture of body of hamate [unciform] bone, unspecified wrist, initial encounter for closed fracture Category: Medical Plan Assessment & Plan: 1. Left Distal radius fracture, S/P ORIF DOS: 09/25/24 From a fall on ice, DOI: 09/17/24 2. Left Ulnar styloid fracture, From a fall on ice, DOI: 09/17/24 3. Left Hamate fracture Seen during ORIF procedure From a fall on ice, DOI: 09/17/24 The patient appears to be doing well post-operatively I educated her about the post-operative course She will discontinue her splint at this time I discussed activity modifications, she is to use her hand for light& medium weight activities, and slowly increase her weight as tolerated over the next few weeks She will continue to work on ROM exercises at home She will continue to attend OT hand therapy She should gently massage about the incision site to reduce the risk of hypersensitivity She will follow up prn Scribed for Misty Griffiths MD by Sundar Chavis medical auditor, on 11/28/24 at 3:45 PM, EST. Coding Level of Care Code Global (86185) Diagnoses Fracture of left distal radius S52.502A Closed nondisplaced fracture of styloid process of left ulna S52.615A Fracture of hamate of left wrist S62.143A
[2024-11-28 15:42] VITALS: BMI 21.0
--- OUTSIDE RECORDS SUMMARY | 2024-11-28 18:34 | XMS_ITS | Clinical Summary ---
Author Organization [facility] Address [address] [place] [phone] Phone Care Team Providers Care School Bus Mechanic Name Role Phone Abram Eddy MD Primary Care Provider [phone] Social History Tobacco Use Types Packs/Day Years [...] 07/11/2021, 12/07/2020, Additional history exists Influenza Vaccine (Season Ended) 2025 11/27/2020 Breast Cancer Screening 07/10/2026 07/10/20, 06/26/2024, 06/23/2023, Additional history exists Cervical Cancer Screening: Pap Smear 06/26/2027 06/26/2024 RSV Immunization Adult Patients (1 - 1-dose 75+ series) 2034 HIB [...] age to complete this topic Meningococcal B Vaccine Aged Out No l onger eligible based on patient's age to complete [...] year. Mammo Location: [facility], [address] [place] [address], [address], . -------- FINAL REPORT -------- Dictated By: Jacinta Bravo Dictated Date: 07/10/2024 14:38 ET Assigned Physician: Jacinta Bravo Reviewed and Electronically Signed By: Jacinta Bravo Signed Date: 07/10/2024 14:41 ET Workstation ID: [id number] Transcribed By: Self Edit Transcribed Date: 07/10/2024 [...] year. Mammo Location: [facility], [address] [place] [address], [address], . -------- FINAL REPORT -------- Dictated By: Jacinta Bravo Dictated Date: 07/10/2024 14:38 ET Assigned Physician: Jacinta Bravo Reviewed and Electronically Signed By: Jacinta Bravo Signed Date: 07/10/2024 14:41 ET Workstation ID: [id number] Transcribed By: Self Edit Transcribed Date: 07/10/2024 14:38 ET us Abram Eddy MD IMG BI PROCEDURES Final Resul t * Pap smear (06/26/2024 12:00 AM EST) Interpretation Negative for intraepithelial lesion or malignancy 07/04/2024 7:40 AM EST [facility] LAB General Categorization Negative 07/04/2024 7:40 AM EST [facility] Other Findings Atrophy 07/04/2024 7:[address] [facility] Specimen Adequacy Satisfactory for evaluation 07/04/2024 7:[address] [facility] Pap Methodology Liquid Based Pap Test 07/04/2024 7:[address] [facility] Disclaimer The Pap test is a screening test which carries an inherent false negative rate. These test results should be correlated with the patient's clinical findings and history. This Pap test was processed using an automated screening system. Technical cytopathology services provided by [facility], at [address] [place] [address] (CLIA # [id number]/Pedro Wiggins MD, Heater Worker.) 07/04/2024 7:[address] [facility] Console Pap Interpretation Reported 07/04/2024 7:[address] [facility] Brushing/Spatula Cervix uteri structure / Unknown 06/26/2024 06/27/2024 10:59 AM EST Leeanna Echavarria MD LAB CYTOLOGY ORDERABLES Final Result [facility] [address] [place] [address], from Last 3 Months or Most Recently Relevant to Health Maintenance Insurance [place] [address] Care Teams School Bus Mechanic Relationship Specialty Start Date End Date Abram Eddy MD [address] [place] [address] Dr Mccartney [address] [place] PCP - General Internal Medicine 06/04/24
--- OUTSIDE RECORDS SUMMARY | 2024-11-28 18:34 | XMS_ITS | Encounter Summary ---
Author Organization [facility] Address [address] [place] [address] Care Team Providers Care Process Specialist Name Role Phone Abram Eddy MD Primary Care Provider [phone] Encounter Details Date Type Department Care Team (Latest Contact Info) Description 06/27/2024 Lab Requisition [facility] [address] [place] [phone] Leeanna Echavarria MD [address] [phone] Encounter for gynecological examination (general) (routine) without [...] malignancy 07/04/2024 7:40 AM EST [facility] General Categorization Negative 07/04/2024 7:[address] [facility] Other Findings Atrophy 07/04/2024 7:40 AM [facility] Specimen Adequacy Satisfactory for evaluation 07/04/2024 7:40 AM [facility] Pap Methodology Liquid Based Pap Test 07/04/2024 7:40 AM [facility] Disclaimer The Pap test is a screening test which carries an inherent false negative rate. These test results should be correlated with the patient's clinical findings and history. This Pap test was processed using an automated screening system. Technical cytopathology services provided by [facility], at [address] [place] [address] (CLIA # [id number]/Pedro Wiggins MD, Hydroelectric Machinery Mechanic.) 07/04/2024 7:40 AM [facility] Console Pap Interpretation Reported 07/04/2024 7:40 AM [facility] Brushing/Spatula Cervix uteri structure / Unknown 06/26/2024 06/27/2024 10:59 AM EST us Leeanna Echavarria MD LAB CYTOLOGY ORDERABLES Final Result [facility] [address] [place] [address], documented in this encounter Visit Diagnoses Diagnosis Encounter for gynecological examination (general) (routine) without abnormal findings documented in this encounter Care Teams Process Specialist Relationship Specialty Start Date End Date Abram Eddy MD [address] [place] [address] Dr Simon [place] PCP - General Internal Medicine 06/04/24 documented as of this encounter
--- OUTSIDE RECORDS SUMMARY | 2024-11-28 18:34 | XMS_ITS | Patient Health Record ---
Author Organization [facility] Address [address] [place] [phone] Care Team Providers Care Mortician Supplies Sales Representative Name Role Phone Abram Eddy MD Primary Care Provider Danny Jules Jr Unavailable Allergies No Known Allergies Reason For Referral [...] Problem Status W/U Status Risk Notes Problem [id number] Colon cancer screening (Z12.11) Active confirmed Problem [id number] Encounter for other preprocedural examination (Z01.818) Active confirmed Plan Of Treatment Future Test Test Name Order Date COLONOSCOPY 01/28/2022 Insurance Providers Payer Name Payer Address Payer Phone Subscriber Number Group Number Insured Name Patient Relationship to Insured Coverage Start Date Coverage End Date [facility] [address] [place] [phone] [id number] ELIER LOPEZ Self - patient is the insured Medical (General) History Medical History History ICD Code Hypertension Sinus problems Covid 19 infection 10/07 Surgical History Surgery Date(Month/Year)
== END 2024-11-28 16:55 | disposition home or self-care (01) ==
LOC: HO.HOS 15:24
PROVIDERS: Visit Provider Orthopaedic Surgery
DX: S52.502A Unspecified fracture of the lower end of left radius, initial encounter for closed fracture (principal); S52.615A Nondisplaced fracture of left ulna styloid process, initial encounter for closed fracture; S62.143A Displaced fracture of body of hamate [unciform] bone, unspecified wrist, initial encounter for closed fracture
CPT/HCPCS: 99024

== ENCOUNTER → 2024-11-28 15:24 | Outpatient (BNVA) | payer OTHER, SELFPAY | PROVIDERS: Visit Provider Orthopaedic Surgery ==

== ENCOUNTER 2024-11-29 07:12 | Outpatient (RCR) | payer OTHER, SELFPAY ==
--- NOTE | 2024-11-03 07:36 | MHC.OT.EP ---
[address] [phone] Occupational Therapy Plan of Care Patient Name: Dorothea Iyer Date of Evaluation: 11/03/24 Diagnosis: Left Distal Radius, Ulna Styloid and Hamate Fx Pain Location: Pain free at rest, feels a little pain w/ stretching Pain Score: 2 Pain Scale Used: Numeric (0 - 10) Aggravating Factors: Stretching Alleviating Factors: Ibuprofen occasionally Assessment: 64 yo female slipped on ice and landed on her left hand. She was seen in ED where x-rays showed comminuted intraarticular distal radius fx, ulnar styloid fx and hamate fx. She was splinted and followed up w/ [facility]. She is now post-op surgical repair 09/25/24 w/ Dr Griffiths. She has since had cast removed and has been wearing velcro wrist orthosis. She has been referred to OT for ROM and desensitization. On assessment today, she is doing well w/ low pain and overall good participation in daily activities. Wrist range is slightly decreased in flex, ext and supination, but I anticipate she will progress well through course of OT w/ range, strength and overall good functional return. Frequency and Duration: The patient will be seen 1x/wk for 4 weeks Short Term Goals: Ind w/ HEP Ind w/ scar mobilization Gross grasp 20lb Wrist flex 45 Wrist ext 55 Wrist sup 70 [facility] Goals: Left gross grasp 40lb Wrist flex 65 Wrist ext 65 Wrist sup 80 Pt to progress to Yoga w/ WB through palm positions (downward facing dog, etc) Treatment Plan: Therapeutic Exercise Therapeutic Activity Home Exercise Program Patient Education Desensitization/Sensory Re-ed Edema Control ADL Training Fluidotherapy MHP Cold Packs Joint Mobilization Soft Tissue Mobilization Kinesiotaping Electronically Signed By: Salome Whitlock, OTR/L CHT Please Sign and return to therapist. Thank you once again for your referral.
--- NOTE | 2024-11-22 13:31 | MHC.OT.OP ---
[address] [phone] F: [phone] Occupational Therapy Progress Note Patient Name: Dorothea Iyer Diagnosis: Left Distal Radius, Ulna Styloid and Hamate Fx Date of Surgery: 09/25/24 Date of Evaluation: 11/03/24 Treatments to Date: 4 Subjective: It's going well, it still feels tight when twisting (rotating) Pain Score: 2 Pain Location: left wrist Objective Measures: Wrist ext/flex 70/56 Forearm pro/sup 80/70 GG R 45lb L 20lb Status: Progressing Assessment: 8 weeks post-op and reporting more ease w/ daily activities. Progressing with stretching and strengthening. Still with some numbness in palm but notes improvements. Pt motivated and progressing steadily. Short Term Goals: Ind w/ HEP (met) Ind w/ scar mobilization (met) Gross grasp 20lb (met) Wrist flex 45 (met) Wrist ext 55 (met) Wrist sup 70 Agricultural Extension Educator Goals: Left gross grasp 40lb Wrist flex 65 Wrist ext 65 Wrist sup 80 Pt to progress to Yoga w/ WB through palm positions (downward facing dog, etc) Frequency and Duration: The patient will be seen 1x/wk for 4 weeks Treatment Plan: Therapeutic Exercise Therapeutic Activity Home Exercise Program Patient Education Desensitization/Sensory Re-ed Edema Control ADL Training Paraffin Fluidotherapy MHP Cold Packs Joint Mobilization Soft Tissue Mobilization Kinesiotaping Electronically Signed By: Salome Whitlock OTR/L CHT Reviewed/agree with student documentation: Therapist:
--- NOTE | 2024-11-29 10:19 | MHC.OT.DC ---
[address] [phone] F: [phone] Occupational Therapy Discharge Note Patient Name: Dorothea John Paintingessence Provider: Dr Misty Griffiths Diagnosis: Left Distal Radius, Ulna Styloid and Hamate Fx Date of Surgery: 09/25/24 Date of Evaluation: 11/03/24 Date of Discharge: 11/29/24 Treatments to Date: 5 Discharge Status: Improved Function Independent with HEP Discharge Summary: 9 weeks post-op and reporting more ease w/ daily activities. Progressing and strengthening. Still with some numbness in palm, but reports improving over time. Good follow though w/ HEP and Ind w/ self management at this time. No further outpatient hand therapy needed, pt confident with home program. Electronically Signed By: SONJA Mary/Mari CHT Reviewed/agree with student documentation: Therapist: Please Sign and return to therapist, thank you for your referral.
== END 2024-11-29 10:19 | disposition home or self-care (01) ==
LOC: HO.OT 07:12
PROVIDERS: PCP Internal Medicine; Visit Provider Orthopaedic Surgery
DX: S52.502D Unspecified fracture of the lower end of left radius, subsequent encounter for closed fracture with routine healing (principal); S52.615D Nondisplaced fracture of left ulna styloid process, subsequent encounter for closed fracture with routine healing; S62.143D Displaced fracture of body of hamate [unciform] bone, unspecified wrist, subsequent encounter for fracture with routine healing
CPT/HCPCS: 97110; 97140; 97165

== ENCOUNTER 2024-12-22 08:48 | Outpatient (AMB) | payer OTHER, SELFPAY ==
[2024-12-22 08:31] VITALS: BP 128/80; PULSE 61; TEMP 36.4; O2SAT 97; BMI 22.3
--- NOTE | 2024-12-22 08:31 | A.OFFPC_ITS ---
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 Required: No Accompanied by: Self / Same As Patient Allergies No Known Allergies Allergy (Verified 12/22/24 08:32) Tobacco use date assessed: 12/22/24 Fall risk assessment: 1 Fall in past year Last assessed Fall Risk: 12/22/24 Dental Screening Dental Screen Date: 12/22/24 Did you have a dental visit in the last 12 months?: Yes Did you have a dental problem in the last 6 months where you did not have access to dental care?: No HPI HPI Comments History of Present Illness Details The patient is a 64 year old female with a past medical history of hypertension, hyperlipidemia, osteoporosis, rbbb, insomnia presenting for follow up. Last seen by pcp in May for annual CV: on amlodipine. BP 128/80. No chest pain, dizziness Osteoporosis: on fosamax Fell over the winter on the ice fractured her left wrist and had to undergo surgery at [facility]. Still has some residual discomfort. She will reach out to ortho Chronic insomnia-lorazapem, zolpidem made her nauseaous. benadryl is fairly effective Colonoscopy 02/2022-10 years Mammo 06/2024-annual Safety Teacher: Marj. ROS see HPI PHYSICAL EXAM: GENERAL: Alert and oriented x 3. NAD EYES: EOMI. Anicteric. HENT: Moist mucous membranes. No scleral icterus. No cervical lymphadenopathy. LUNGS: Clear to auscultation bilaterally. CARDIOVASCULAR: Regular rate and rhythm. No murmur. No JVD. ABDOMEN: Soft, non-tender +bs EXTREMITIES: No edema. Non-tender. SKIN: No rashes or lesions. Warm. NEUROLOGIC: No focal neurological deficits. CN II-XII grossly intact PSYCHIATRIC: Cooperative. Appropriate mood and affect [facility] Medical History (Updated 12/22/24 @ 09:28 by Olga Lidia Man MD) Fracture of left distal radius HTN (hypertension) History of right bundle branch block (RBBB) Surgical History Hx of colonoscopy (~03/05/22) Family History (Updated 12/22/24 @ 09:08 by Zuri Vargas MA) Mother No problems noted. Father No problems noted. 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 1. Little interest or pleasure in doing things: not at all 2. Feeling down, depressed, or hopeless: not at all 3. Trouble falling or staying asleep, or sleeping too much: not at all 4. Feeling tired or having little energy: not at all 5. Poor appetite or overeating: not at all 6. Feeling bad about yourself - or that you are a failure or have let yourself or your family down: not at all 7. Trouble concentrating on things, such as reading the newspaper or watching television: not at all 8. Moving or speaking so slowly that other people could have noticed. Or the opposite - being so fidgety or restless that you have been moving around a lot more than usual: not at all 9. Thoughts that you would be better off or of hurting yourself in some way: not at all Total score: 0 Depression Screening Interpretation: Negative Depression Screening Done: Yes 14326 - PHQ-9 Billing: Yes Source: Developed by Drs. Frankie Walker, Emily Li, Justin Lester and colleagues, with an educational errol from [employer] Thrive Questionnaire Date Thrive assessed: 12/22/24 I am a: Patient Within the past 12 months, did the food you bought not last and you didn't have the money to get more?: Never true Within the past 12 months, did you worry whether your food would run out before you got money to buy more?: Never true Do you have trouble paying for medicines?: No Do you have trouble getting transportation to medical appointments?: No Do you have trouble paying your heating and electricity bill?: No Do you have trouble taking care of your child, family member or friend?: No Do you have trouble with day-to-day activities such as bathing, preparing meals, shopping, managing finances, etc.?: No Are you currently unemployed and looking for a job?: No Are you interested in more education?: No THRIVE Score: 0 AUDIT C Alcohol Use Questionnaire (AUDIT-C) 1. How often do you have a drink containing alcohol?: Monthly or less 2. How many drinks containing alcohol do you have on a typical day when you are drinking?: 1 or 2 3. How often do you have six or more drinks on one occasion?: Less than monthly Total Score: 2 ARELY-7 AMB Questionnaire ARELY-7 Date ARELY - 7 assessed: 12/22/24 Feeling nervous, anxious, or on edge: 0 = Not at all Not being able to stop or control worryin = Not at all Worrying too much about different things: 0 = Not at all Trouble relaxin = Not at all Being so restless that it is hard to sit still: 0 = Not at all Becoming easily annoyed or irritable: 0 = Not at all Feeling afraid as if something awful might happen: 0 = Not at all Total ARELY-7 score (0-4 normal; 5-9 mild; 10-14 moderate; 15-21 severe): 0 Source: Developed by Drs. Frankie Walker, Emily Li, Justin Lester and colleagues, with an educational errol from [employer] Physical exam (Primary Care) Tobacco/Smoking Status: Tobacco use Status Tobacco use date assessed 12/22/24 12/22/24 08:33 Patient Tobacco Use Status Never used Tobacco 12/22/24 08:33 e-Cigarette/Vaping Use Never Used 12/22/24 08:33 PHQ-9: PHQ-9 Score PHQ-9: Total score 0 12/22/24 09:03 Depression Screening Interpretation: Negative Thrive Assessment: Date of Thrive Assessment Date Thrive assessed 12/22/24 12/22/24 08:33 Coding Level of Care Code New Pt Level 4 (49903) Complex EM visit Add On G2211 Diagnoses Hyperlipidemia, unspecified hyperlipidemia type E78.5 Hyperlipidemia type: unspecified Closed displaced fracture of hamate of left wrist, unspecified portion of hamate, sequela S62.142S Encounter type: sequela Hamate bone location: unspecified portion of hamate Fracture type: closed Fracture alignment: displaced Osteoporosis, unspecified osteoporosis type, unspecified pathological fracture presence M81.0 Osteoporosis type: unspecified Presence of current pathological fracture: unspecified Additional Codes PHQ-9 - 59820 - PHQ-9 Billing: Yes ([id number]) Assessment & Plan Assessment & Plan (1) Hyperlipidemia: Code(s): E78.5 - Hyperlipidemia, unspecified Category: Medical Qualifiers: Hyperlipidemia type: unspecified Qualified Code(s): E78.5 - Hyperlipidemia, unspecified (2) Fracture of hamate of left wrist: Code(s): S62.143A - Displaced fracture of body of hamate [unciform] bone, unspecified wrist, initial encounter for closed fracture Category: Medical Qualifiers: Encounter type: sequela Hamate bone location: unspecified portion of hamate Fracture type: closed Fracture alignment: displaced Qualified Code(s): S62.142S - Displaced fracture of body of hamate [unciform] bone, left wrist, sequela (3) Osteoporosis: Code(s): M81.0 - Age-related osteoporosis without current pathological fracture Category: Medical Qualifiers: Osteoporosis type: unspecified Presence of current pathological fracture: unspecified Qualified Code(s): M81.0 - Age-related osteoporosis without current pathological fracture Plan 64 y/o to establish care past medical, surgical, social reviewed htn is well controlled hld borderline insomnia-trial trazodone Orders: Orders Comprehensive Met. Panel 6 Months E78.5 - Hyperlipidemia, unspecified, M81.0 - Age-related osteoporosis without current pathological fracture, Z13.0 - Encounter for screening for diseases of the blood and blood-forming organs and certain disorders involving the immune mechanism, Z13.228 - Encounter for screening for other metabolic disorders Lipid Panel 6 Months E78.5 - Hyperlipidemia, unspecified, M81.0 - Age-related osteoporosis without current pathological fracture, Z13.0 - Encounter for screening for diseases of the blood and blood-forming organs and certain disorders involving the immune mechanism, Z13.228 - Encounter for screening for other metabolic disorders Vitamin D 25-OH (D2 and D3) 6 Months E78.5 - Hyperlipidemia, unspecified, M81.0 - Age-related osteoporosis without current pathological fracture, Z13.0 - Encounter for screening for diseases of the blood and blood-forming organs and certain disorders involving the immune mechanism, Z13.228 - Encounter for screen ing for other metabolic disorders XR DEXA axial skeleton 6 Months M81.0 - Age-related osteoporosis without current pathological fracture Complete Blood Count Auto Diff 6 Months E78.5 - Hyperlipidemia, unspecified, M81.0 - Age-related osteoporosis without current pathological fracture, Z13.0 - Encounter for screening for diseases of the blood and blood-forming organs and certain disorders involving the immune mechanism, Z13.228 - Encounter for screening for other metabolic disorders Medications: New trazodone 50 mg PO BEDTIME PRN 90 tabs 3RF sleep
--- OUTSIDE RECORDS SUMMARY | 2024-12-22 09:01 | XMS_ITS | Patient Health Record ---
Author Organization [facility] Address [address] [place] [phone] Care Team Providers Care Director Emergency Services Name Role Phone Abram Eddy MD Primary [...] Problem Status W/U Status Risk Notes Problem [id number] Colon cancer screening (Z12.11) Active confirmed Problem [id number] Encounter for other preprocedural examination (Z01.818) Active confirmed Plan Of Treatment Future Test Test Name Order Date COLONOSCOPY 01/28/2022 Insurance Providers Payer Name Payer Address Payer Phone Subscriber Number Group Number Insured Name Patient Relationship to Insured Coverage Start Date Coverage End Date [facility] [address] [place] [phone] [id number] ELIER LOPEZ Self - patient is the insured Medical (General) History Medical History History ICD Code Hypertension Sinus problems Covid 19 infection 10/07 Surgical History Surgery Date(Month/Year)
--- OUTSIDE RECORDS SUMMARY | 2024-12-22 09:01 | XMS_ITS | Clinical Summary ---
Author Organization [facility] Address [address] [place] [phone] Phone Care Team Providers Care Reconciler Name Role Phone Abram Eddy MD Primary Care Provider [phone] Social History Tobacco Use Types Packs/Day Years [...] year. Mammo Location: [facility], [address] [place] [address], [address], . -------- FINAL REPORT -------- Dictated By: Jacinta Bravo Dictated Date: 07/10/2024 14:38 ET Assigned Physician: Jacinta Bravo Reviewed and Electronically Signed By: Jacinta Bravo Signed Date: 07/10/2024 14:41 ET Workstation ID: [id number] Transcribed By: Self Edit Transcribed Date: 07/10/2024 [...] year. Mammo Location: [facility], [address] [place] [address], [address], . -------- FINAL REPORT -------- Dictated By: Jacinta Bravo Dictated Date: 07/10/2024 14:38 ET Assigned Physician: Jacinta Bravo Reviewed and Electronically Signed By: Jacinta Bravo Signed Date: 07/10/2024 14:41 ET Workstation ID: [id number] Transcribed By: Self Edit Transcribed Date: 07/10/2024 14:38 ET us Abram Eddy MD IMG BI PROCEDURES Final Resul t * Pap smear (06/26/2024 12:00 AM EST) Interpretation Negative for intraepithelial lesion or malignancy 07/04/2024 7:40 AM EST [facility] General Categorization Negative 07/04/2024 7:40 [...] screening system. Technical cytopathology services provided by [facility], at [address] [place] [address] (CLIA # [id number]/Pedro Wiggins MD, Dull Coat Mill Operator.) 07/04/2024 7:40 AM [facility] Console Pap Interpretation Reported 07/04/2024 7:40 AM [facility] Brushing/Spatula Cervix uteri structure / Unknown 06/26/2024 06/27/2024 10:59 AM EST Leeanna Echavarria MD LAB CYTOLOGY ORDERABLES Final Result [facility] [address] [place] [address], from Last 3 Months or Most Recently Relevant to Health Maintenance [place] [address] [place] [address] Care Teams Reconciler Relationship Specialty Start Date End Date Abram Eddy MD [address] [place] [address] Dr Mccartney [address] [place] PCP - General Internal Medicine 06/04/24
--- OUTSIDE RECORDS SUMMARY | 2024-12-22 09:01 | XMS_ITS | Encounter Summary ---
Author Organization [facility] Address [address] [place] [address] Care Team Providers Care Direct Service Provider Name Role Phone Abram Eddy MD Primary Care Provider [phone] Encounter Details Date Type Department Care Team (Latest Contact Info) Description 06/27/2024 Lab Requisition [facility] [address] [place] [phone] Leeanna Echavarria MD [address] [phone] Encounter for gynecological examination (general) (routine) without [...] lesion or malignancy 07/04/2024 7:40 AM EST [facility] General Categorization Negative 07/04/2024 7:40 AM EST [facility] Other Findings Atrophy 07/04/2024 7:40 AM [facility] Specimen Adequacy Satisfactory for evaluation 07/04/2024 7:40 AM [facility] Pap Methodology Liquid Based Pap Test 07/04/2024 7:40 AM [facility] Disclaimer The Pap test is a screening test which carries an inherent false negative rate. These test results should be correlated with the patient's clinical findings and history. This Pap test was processed using an automated screening system. Technical cytopathology services provided by [facility], at [address] [place] [address] (CLIA # [id number]/Pedro Wiggins MD, Criminalist Technician.) 07/04/2024 7:40 AM [facility] Console Pap Interpretation Reported 07/04/2024 7:40 AM [facility] Brushing/Spatula Cervix uteri structure / Unknown 06/26/2024 06/27/2024 10:59 AM EST us Leeanna Echavarria MD LAB CYTOLOGY ORDERABLES Final Result [facility] [address] [place] [address], documented in this encounter Visit Diagnoses Diagnosis Encounter for gynecological examination (general) (routine) without abnormal findings documented in this encounter Care Teams Direct Service Provider Relationship Specialty Start Date End Date Abram Eddy MD [address] [place] [address] Dr Simon [place] PCP - General Internal Medicine 06/04/24 documented as of this encounter
== END 2024-12-22 09:28 | disposition home or self-care (01) ==
LOC: HO.HMCHD 08:48
PROVIDERS: Visit Provider Internal Medicine
DX: E78.5 Hyperlipidemia, unspecified (principal); S62.14 Fracture of body of hamate [unciform] bone; M81.0 Age-related osteoporosis without current pathological fracture

== ENCOUNTER → 2024-12-22 08:48 | Outpatient (BNVA) | payer OTHER, SELFPAY | PROVIDERS: Visit Provider Internal Medicine | DX: E78.5 Hyperlipidemia, unspecified (principal); S62.14 Fracture of body of hamate [unciform] bone; M81.0 Age-related osteoporosis without current pathological fracture; I10 Essential (primary) hypertension; F51.04 Psychophysiologic insomnia; Z79.899 Other long term (current) drug therapy | CPT/HCPCS: 96127 ==

== ENCOUNTER 2025-06-22 08:49 | Outpatient (AMB) | payer OTHER, SELFPAY ==
--- NOTE | 2025-06-22 08:31 | MHC.PC.OV ---
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 Accompanied by: Self / Same As Patient Allergies No Known Allergies Allergy (Verified 12/22/24 08:32) Medication List - Last Reconciled 06/22/25 by Irving Saunders MD alendronate 35 mg PO DAILY amlodipine 5 mg PO DAILY diphenhydramine HCl (Benadryl) 25 mg PO BEDTIME PRN ibuprofen 600 mg PO Q6-8H PRN nystatin 1 appl topical BID trazodone 50 mg PO BEDTIME PRN Tobacco use date assessed: 06/22/25 Fall risk assessment: No Falls in past year Last assessed Fall Risk: 06/22/25 Dental Screening Dental Screen Date: 06/22/25 Did you have a dental visit in the last 12 months?: Yes Did you have a dental problem in the last 6 months where you did not have access to dental care?: No HPI HPI Comments History of Present Illness Details The patient is a 65-year-old female presenting for an annual physical examination. The patient's blood pressure was noted to be high during the visit, with two readings over 150 systolic. She takes amlodipine 5 mg for hypertension and occasionally checks her blood pressure at home on her mother's machine, stating her readings are usually normal, though she cannot recall the specific values. Regarding hyperlipidemia, her last labs showed a total cholesterol of 207 and an LDL of 135. She acknowledged that her cholesterol has been borderline for a few years and states her diet has not been good. For sleep, the patient uses Benadryl as needed. She previously tried trazodone 50 mg as prescribed by Dr. Man but felt it did not work any better than Benadryl and did not give it a long trial. She reports feeling anxious, has a busy job, and notes that Benadryl sometimes helps with seasonal allergies. The patient has a history of osteoporosis and is treated with alendronate 35 mg, which was initiated by Dr. Powell. She is scheduled for a bone scan in a couple of weeks. She recently had wrist surgery following a fracture from a slip and fall on snow-covered ice and uses ibuprofen as needed for pain. Medical History: - Hypertension - Hyperlipidemia - Osteoporosis - Insomnia - Anxiety Surgical History: - Wrist surgery for a fracture. Medications: - Alendronate 35 mg for osteoporosis. - Amlodipine 5 mg for hypertension. - Benadryl as needed for sleep. - Trazodone 50 mg, previously tried for sleep. - Ibuprofen as needed for pain. Family History: - Not discussed. Diagnostic Results: - Last year labs: Total cholesterol 207, LDL 135. Social History: - Alcohol use: Reports drinking wine with dinner most days. - Tobacco use: Denies smoking. - Illicit drug use: Denies use of marijuana, heroin, or cocaine. 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 - Mental Health: Reports a history of being an anxious person. [facility] Medical History (Updated 06/22/25 @ 09:25 by Irving Saunders MD) Annual physical exam Insomnia Fracture of left distal radius HTN (hypertension) History of right bundle branch block (RBBB) Surgical History Hx of colonoscopy (~03/05/22) Family History Mother No problems noted. Father No problems noted. 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 1. Little interest or pleasure in doing things: not at all 2. Feeling down, depressed, or hopeless: not at all 3. Trouble falling or staying asleep, or sleeping too much: not at all 4. Feeling tired or having little energy: not at all 5. Poor appetite or overeating: not at all 6. Feeling bad about yourself - or that you are a failure or have let yourself or your family down: not at all 7. Trouble concentrating on things, such as reading the newspaper or watching television: not at all 8. Moving or speaking so slowly that other people could have noticed. Or the opposite - being so fidgety or restless that you have been moving around a lot more than usual: not at all 9. Thoughts that you would be better off or of hurting yourself in some way: not at all Total score: 0 Depression Screening Interpretation: Negative Depression Screening Done: Yes 77863 - PHQ-9 Billing: Yes Source: Developed by Drs. Frankie Walker, Emily Li, Justin Lester and colleagues, with an educational errol from [employer]. Thrive Questionnaire Date Thrive assessed: 06/22/25 I am a: Patient What is your living situation today?: I have a steady place to live Within the past 12 months, did the food you bought not last and you didn't have the money to get more?: Never true Within the past 12 months, did you worry whether your food would run out before you got money to buy more?: Never true Do you have trouble paying for medicines?: No Do you have trouble getting transportation to medical appointments?: No Do you have trouble paying your heating and electricity bill?: No Do you have trouble taking care of your child, family member or friend?: No Do you have trouble with day-to-day activities such as bathing, preparing meals, shopping, managing finances, etc.?: No Are you currently unemployed and looking for a job?: No Are you interested in more education?: No THRIVE Score: 0 AUDIT C Alcohol Use Questionnaire (AUDIT-C) 1. How often do you have a drink containing alcohol?: 4 or more times a week 2. How many drinks containing alcohol do you have on a typical day when you are drinking?: 1 or 2 3. How often do you have six or more drinks on one occasion?: Never Total Score: 4 Score Reviewed/Action Taken: Yes ARELY-7 AMB Questionnaire ARELY-7 Date ARELY - 7 assessed: 06/22/25 Feeling nervous, anxious, or on edge: 0 = Not at all Not being able to stop or control worryin = Not at all Worrying too much about different things: 0 = Not at all Trouble relaxin = Not at all Being so restless that it is hard to sit still: 0 = Not at all Becoming easily annoyed or irritable: 0 = Not at all Feeling afraid as if something awful might happen: 0 = Not at all Total ARELY-7 score (0-4 normal; 5-9 mild; 10-14 moderate; 15-21 severe): 0 Source: Developed by Drs. Frankie Walker, Emily Li, Justin Lester and colleagues, with an educational errol from [employer]. ARELY-7 Assessment Billing ARELY-7 Assessment Tool: ARELY-7 Assessment 68052 Review of Systems Narrative - Constitutional: Denies nausea and vomiting. - Cardiovascular: Denies chest pain. - Respiratory: Denies shortness of breath. - Neurological: Denies headaches and vision changes. - GI/: Reports normal bowel and bladder function. - Psychiatric: Reports anxiety and trouble sleeping. All systems reviewed & are unremarkable except as reviewed in HPI and above Physical exam (Primary Care) Vital Signs: Last Vital Signs Temp 98.3 F 06/22/25 08:52 Pulse 59 06/22/25 08:52 BP 150/82 H 06/22/25 08:52 Pulse Ox 99 06/22/25 08:52 Oxygen Delivery Method Room Air 06/22/25 08:52 BMI result Body Mass Index 22.4 Tobacco/Smoking Status: Tobacco use Status Tobacco use date assessed 06/22/25 06/22/25 08:46 Patient Tobacco Use Status Never used Tobacco 06/22/25 08:32 e-Cigarette/Vaping Use Never Used 06/22/25 08:32 PHQ-9: PHQ-9 Score PHQ-9: Total score 0 06/22/25 08:58 Depression Screening Interpretation: Negative Thrive Assessment: Date of Thrive Assessment Date Thrive assessed 06/22/25 06/22/25 08:58 Narrative General: +Alert and oriented, Well nourished, No acute distress. Eye: Pupils are equal, round and reactive to light, Intact accommodation, Extraocular movements are intact, Normal conjunctiva, Vision unchanged. HENT: Normocephalic, Atraumatic, Tympanic membranes are clear, Normal hearing, Oral mucosa is moist, No pharyngeal erythema, Ear canals patent. Respiratory: Lungs CTA bilaterally, No wheeze, Respirations are non-labored. Cardiovascular: Regular rate, Regular rhythm, S1 auscultated, S2 auscultated, No murmur, Good pulses equal in all extremities, Normal peripheral perfusion, No edema. Gastrointestinal: Soft, Non-tender, Non-distended, Normal bowel sounds, No organomegaly. Musculoskeletal: Normal range of motion, Normal strength, No tenderness, No swelling, No deformity, Normal gait. Integumentary: Warm, Dry, [place], Intact. Neurologic: Alert, Oriented, Normal sensory, Normal motor function, No focal defects, Cranial Nerves II-XII are grossly intact, Normal deep tendon reflexes. Psychiatric: Cooperative, Appropriate mood & affect, Normal judgment, Reports anxiety. Coding Level of Care Code Est Pt Level 4 (36259) Est Pt Prev Care >65y(86386) Diagnoses Primary hypertension I10 Hypertension type: primary hypertension Hyperlipidemia, unspecified hyperlipidemia type E78.5 Hyperlipidemia type: unspecified Other insomnia G47.09 Insomnia type: other insomnia Osteoporosis, unspecified osteoporosis type, unspecified pathological fracture presence M81.0 Osteoporosis type: unspecified Presence of current pathological fracture: unspecified Annual physical exam Z00.00 Additional Codes PHQ-9 - 72139 - PHQ-9 Billing: Yes ([id number]) ARELY-7 Assessment Billing - ARELY-7 Assessment Tool: ARELY-7 Assessment 18305 ([id number]) Comment [id number] Assessment & Plan Assessment & Plan (1) HTN (hypertension): Comment: - The patient's blood pressure is currently elevated at over 150 systolic despite being on amlodipine 5 mg. - The plan is to increase amlodipine to 10 mg daily. - She has been instructed to monitor her blood pressure at home for the next two weeks and to return for a follow-up visit. A new prescription for amlodipine 10mg will be sent, and she is advised to keep her 5mg tablets in case the higher dose is too strong. Further adjustments may be made at the follow-up if her blood pressure remains high. Code(s): I10 - Essential (primary) hypertension Category: Medical Qualifiers: Hypertension type: primary hypertension Qualified Code(s): I10 - Essential (primary) hypertension (2) Hyperlipidemia: Comment: - The patient's last LDL was 135, which, combined with her hypertension, places her at a 15% risk of a cardiovascular event. She should be on cholesterol-lowering medication. - The plan is to obtain a lipid panel today to determine the appropriate dose for medication. - We will discuss initiating cholesterol medication at her two-week follow-up appointment. Code(s): E78.5 - Hyperlipidemia, unspecified Category: Medical Qualifiers: Hyperlipidemia type: unspecified Qualified Code(s): E78.5 - Hyperlipidemia, unspecified (3) Insomnia: Comment: - The patient has been using Benadryl for sleep, which is not recommended due to its anticholinergic side effects and risk of falls, dizziness, and urinary retention in older adults. - Although a trial of trazodone 50 mg was not perceived as effective, it is a safer alternative. - The plan is to increase the trazodone dose to 100 mg. The patient was educated that it may take two to three weeks to become fully effective. Code(s): G47.00 - Insomnia, unspecified Category: Medical Qualifiers: Insomnia type: other insomnia Qualified Code(s): G47.09 - Other insomnia (4) Osteoporosis: Comment: - The patient is on alendronate 35 mg and has a follow-up bone scan scheduled in a couple of weeks. - No changes to management at this time. Code(s): M81.0 - Age-related osteoporosis without current pathological fracture Category: Medical Qualifiers: Osteoporosis type: unspecified Presence of current pathological fracture: unspecified Qualified Code(s): M81.0 - Age-related osteoporosis without current pathological fracture (5) Annual physical exam: Comment: - The visit was designated as her annual physical. - Comprehensive labs were ordered, including electrolytes, renal and liver function, glucose, hepatitis and HIV screening, cholesterol, urinalysis, syphilis screening, thyroid function, and vitamin D levels. - She has a mammogram scheduled for the end of the month and a Pap smear in a couple of weeks, with results to be sent to our office. - Her next colonoscopy is not due until 2031. The patient was counseled to reduce her alcohol intake. Code(s): Z00.00 - Encounter for general adult medical examination without abnormal findings Category: Medical Plan: Health Maintenance: - Annual Labs: Orders placed for a comprehensive panel including electrolytes, liver and kidney function, glucose, hepatitis and HIV screening, cholesterol, urinalysis, syphilis screening, thyroid, and vitamin D levels. - Mammogram: Scheduled for the end of the month. - Pap Smear: Scheduled in a couple of weeks. - Bone Density Scan: Scheduled in a couple of weeks. - Colonoscopy: Not due until 2031. - Lifestyle Counseling: Advised to reduce alcohol consumption. - Cardiovascular Risk: Patient's risk was calculated to be about 15% based on her hypertension and hyperlipidemia. - Discussed fall prevention, home safety, and advance care planning - Reviewed vaccination history; advised influenza and COVID boosters as indicated. - Counseled patient on nutrition, exercise, alcohol moderation, and fall prevention - Vital signs were reviewed and documented, including blood pressure, heart rate, temperature, respiratory rate, height, weight, and BMI. Patient was informed and verbally consented to the use of an ambient scribe for clinic note documentation during this visit. Plan I discussed with the patient her elevated blood pressure readings today and the importance of better control to reduce her cardiovascular risk, which is currently estimated at 15% given her concurrent hyperlipidemia. I explained the plan to increase her amlodipine from 5 mg to 10 mg and instructed her on how to monitor her blood pressure at home for the next two weeks. I also explained that based on her lab results and blood pressure log, we may need to add another agent. We discussed her use of Benadryl for sleep, and I advised against its continued use due to the risks of falls, dizziness, and urinary retention in her age group. I recommended increasing her trazodone dose to 100 mg and explained that it is a safer medication for sleep, though it may take 2-3 weeks to become fully effective. I ordered comprehensive lab work to be done today, including a lipid panel, to guide our decision on starting cholesterol medication. We will review all results at a follow-up visit in two weeks, at which time we will also decide on initiating a statin. The patient was also counseled on reducing her alcohol intake. She verbalized understanding of the plan and all instructions, which will also be sent to her via the patient portal. Orders: Orders Complete Blood Count Auto Diff Today Z00.00 - Encounter for general adult medical examination without abnormal findings Hemoglobin A1c Today Z00.00 - Encounter for general adult medical examination without abnormal findings Hepatitis A,B,C Profile Today Z00.00 - Encounter for general adult medical examination without abnormal findings HIV Ab/Ag Today Z00.00 - Encounter for general adult medical examination without abnormal findings Microalbumin, Random (w Creat) Today Z00.00 - Encounter for general adult medical examination without abnormal findings Syphilis Screen Today Z00.00 - Encounter for general adult medical examination without abnormal findings TSH reflex Free T4 Today Z00.00 - Encounter for general adult medical examination without abnormal findings Vitamin D 25-OH Total Today Z00.00 - Encounter for general adult medical examination without abnormal findings Comprehensive Met. Panel Today Z00.00 - Encounter for general adult medical examination without abnormal findings Lipid Panel Today Z00.00 - Encounter for general adult medical examination without abnormal findings Medications: New amlodipine 10 mg PO DAILY 30 tabs 0RF trazodone 100 mg PO BEDTIME 90 tabs 0RF 90 days Discontinued amlodipine Discontinued Reason: Doctor's Order 5 mg PO DAILY 90 tabs 3RF trazodone Discontinued Reason: Doctor's Order 50 mg PO BEDTIME PRN 90 tabs 3RF sleep Patient Instructions: - Please go across the cardona to the lab to have your blood drawn today. - Increase your blood pressure medication, amlodipine, from 5 mg to 10 mg once daily. A new prescription will be sent to your pharmacy. - Check your blood pressure at home for the next two weeks. Please rest for five minutes before checking it. - Increase your sleep medication, trazodone, to 100 mg at bedtime. Please be aware it can take two to three weeks for this medication to work fully. Please stop taking Benadryl for sleep. - Please cut down on your alcohol use. - Schedule a follow-up appointment in two weeks to check your blood pressure and discuss your lab results.
[2025-06-22 08:52] VITALS: BP 150/82; PULSE 59; TEMP 36.8; O2SAT 99; BMI 22.4
== END 2025-06-22 09:21 | disposition home or self-care (01) ==
LOC: HO.HMCHD 08:49
PROVIDERS: PCP Student in an Organized Health Care Education/Training Program; Visit Provider Student in an Organized Health Care Education/Training Program
DX: Z00.00 Encounter for general adult medical examination without abnormal findings (principal); I10 Essential (primary) hypertension; E78.5 Hyperlipidemia, unspecified; G47.09 Other insomnia; M81.0 Age-related osteoporosis without current pathological fracture

== ENCOUNTER 2025-06-22 09:23 | Outpatient (REF) | payer OTHER, SELFPAY ==
[2025-06-22 10:33] LABS: MANUAL DIFF FLAG NO
--- OUTSIDE RECORDS SUMMARY | 2025-06-22 10:38 | XMS_ITS | Clinical Summary ---
Author Organization [facility] Address [address] [place] [address] Phone Care Team Providers Care Customer Strategy Manager Name Role Phone Abram Eddy MD Primary Care Provider [phone] Social History Tobacco Use Types Packs/Day Years [...] 06/26/2024 7:48 AM EST Plan of Treatment Upcoming Encounters Date Type Department Care Team (Late st Contact Info) Description 07/13/2025 7:30 AM EST [facility]ointment [facility] [address] [id number] Health Maintenance Due Date Last Done Comments Colorectal Cancer Screening: Colonoscopy 1959 DTaP,Tdap,and Td Vaccines (1 - Tdap) 1978 Pneumococcal Vaccine: 50+ Years (1 of 1 - PCV) 2009 Zoster Vaccines (1 of 2) 2009 Hepatitis C Screening 07/18/2022 Osteoporosis Screening (Bone Density Screening) 07/18/2022 Social Influencers of Health Screening 07/18/2022 Falls Risk Assessment 01/27/2024 Depression Screening 08/16/2024 COVID-19 Vaccine ( season) 2025 06/16/2023, 07/11/2021, 12/07/2020, Additional history exists Influenza Vaccine (#1) 2025 11/27/2020 Breast Cancer Screening 07/10/2026 07/10/20, 06/26/2024, 06/23/2023, Additional history exists RSV Immunization Adult Patients (1 - 1-dose [...] 2:37 PM EST Inversion of left nipple from Last 3 Months or Most Recently [...] malignancy or alter the indications for biopsy. BI-RADS CATEGORY: Mammography: 2 - BENIGN Ultrasound: 2 - BENIGN RECOMMENDATIONS: Screening bilateral mammogram is recommended in 1 year. Screening bilateral mammogram is recommended in 1 year. Mammo Location: [facility], [address] [place] [address], [address], . -------- FINAL REPORT -------- Dictated By: Jacinta Bravo Dictated Date: 07/10/2024 14:38 ET Assigned Physician: Jacinta Bravo Reviewed and Electronically Signed By: Jacinta Bravo Signed Date: 07/10/2024 14:41 ET Workstation ID: [id number] Transcribed By: Self Edit Transcribed Date: 07/10/2024 [...] year. Mammo Location: [facility], [address] [place] [address], [id number], . -------- FINAL REPORT -------- Dictated By: Jacinta Bravo Dictated Date: 07/10/2024 14:38 ET Assigned Physician: Jacinta Bravo Reviewed and Electronically Signed By: Jacinta Bravo Signed Date: 07/10/2024 14:41 ET Workstation ID: [id number] Transcribed By: Self Edit Transcribed Date: 07/10/2024 14:38 ET Arbam Eddy MD IMG BI PROCEDURES Final Resul t from Last 3 Months or Most Recently Relevant to Health Maintenance Insurance Care Teams Customer Strategy Manager Relationship Specialty Start Date End Date Abram Eddy MD [address] [place] [address] Dr Mccartney [address] ANTHONY Barajas PCP - General Internal Medicine 06/04/24
--- OUTSIDE RECORDS SUMMARY | 2025-06-22 10:38 | XMS_ITS | Encounter Summary ---
Author Organization [facility] Address [address] [place] [address] Care Team Providers Care Ham Smoker Name Role Phone Abram Eddy MD Primary Care Provider [phone] Encounter Details Date Type Department Care Team (Latest Contact Info) Description 06/27/2024 Lab Requisition [facility] [address] [place] [id number] Leeanna Echavarria MD [address] [phone] Encounter for gynecological examination (general) (routine) without abnormal findings Social History Tobacco Use Types Packs/Day Years Used Date Smoking Tobacco: Never Assessed Comments No Sex and Gender Information Value Date Recorded Sex Assigned at Not on file Legal Sex Female 9:21 PM EST Gender Identity Not on file Sexual Orientation Not on file documented as of this encounter Plan of Treatment Upcoming Encounters Date Type Department Care Team (Late st Contact Info) Description 07/13/2025 7:30 AM EST Appointment [facility] [address] [place] [phone] documented as of this encounter Procedures Procedure Name Priority Date/Time Associated Diagnosis Comments PAP SMEAR Routine 06/26/2024 12:00 AM EST Encounter for gynecological examination (general) (routine) without abnormal findings documented in this encounter Results * Pap smear (06/26/2024 12:00 AM EST) Interpretation Negative for intraepithelial lesion or malignancy 07/04/2024 7:40 AM [facility] General Categorization Negative 07/04/2024 7:40 AM [facility] Other Findings Atrophy 07/04/2024 7:40 AM [facility] Specimen Adequacy Satisfactory for evaluation 07/04/2024 7:40 AM [facility] Pap Methodology Liquid Based Pap Test 07/04/2024 7:40 AM [facility] Disclaimer The Pap test is a screening test which carries an inherent false negative rate. These test results should be correlated with the patient's clinical findings and history. This Pap test was processed using an automated screening system. Technical cytopathology services provided by [facility], at [address] [place] [address] (CLIA # [id number]/Pedro Wiggins MD, Press Operator Apprentice.) 07/04/2024 7:40 AM [facility] Console Pap Interpretation Reported 07/04/2024 7:40 AM [facility] Brushing/Spatula Cervix uteri structure / Unknown 06/26/2024 06/27/2024 10:59 AM EST us Leeanna Echavarria MD LAB CYTOLOGY ORDERABLES Final Result [facility] [address] [place] [address], documented in this encounter Visit Diagnoses Diagnosis Encounter for gynecological examination (general) (routine) without abnormal findings Encounter for screening mammogram for breast cancer documented in this encounter Care Teams Ham Smoker Relationship Specialty Start Date End Date Abram Eddy MD [address] [place] [address] Dr Simon [place] PCP - General Internal Medicine 06/04/24 documented as of this encounter
--- OUTSIDE RECORDS SUMMARY | 2025-06-22 10:38 | XMS_ITS | Patient Health Record ---
Author Organization [facility] Address [address] [place] [id number] Care Team Providers Care Supervisor Sample Name Role Phone Surjit (RETIRED) Abram CERVANTES Primary Care Provide r Danny Warren Jr Unavailable Allergies No Known Allergies Reason For Referral No Information Medications Medication SIG (Take, Route, Frequency, Duration) Notes Start Date End Date Status MiraLax (colon prep) 17 GM/SCOOP mixed with Gatorade or Crystal Light Orally begin at 5:00 p.m. the day before the procedure; Duration: 1 day 01/28/2022 Active amLODIPine Besylate 5 MG TAKE 1 TABLET B Y MOUTH EVERY DAY Oral; Duration: 90 Active Vitamin D (Cholecalciferol) 10 MCG (400 UNIT) 1 tablet Orally Once a day; Duration: 30 day(s) 01/28/2022 Active Benadryl 25 MG 1 capsule at bedtime as needed Orally Once a day; Duration: 30 day(s) 01/28/2022 Active Immunizations Vaccine Route [...] Problem Status W/U Status Risk Notes Problem Colon cancer screening (365073717) Colon cancer screening (Z12.11) Active confirmed Problem Pre-procedure evaluation check (875942659) Encounter for other preprocedural examination (Z01.818) Active confirmed Plan Of Treatment Future Test Test Name Order Date COLONOSCOPY 01/28/2022 Insurance Providers Payer Name Payer Address Payer Phone Subscriber Number Group Number Insured Name Patient Relationship to Insured Coverage Start Date Coverage End Date [facility] [address] [facility] [phone] [id number] ELIER LOPEZ Self - patient is the insured Medical (General) History Medical History History ICD Code Hypertension Sinus problems Covid 19 infection 10/07 Surgical History Surgery Date(Month/Year)
[2025-06-22 10:49] LABS: Hematocrit 42.5 % (37.0-47.0); Hemoglobin 14.3 g/dl (12.0-16.0); Imm Gran Abs Auto 0.03 X10*3/uL (0.00-0.03); Imm Gran Pct Auto 0.5 % (0.0-0.4); Lymphocytes Absolute Auto 2.3 X10*3/uL (1.2-4.9); Mean Corpuscular HGB Conc 33.6 g/dl (31.0-35.0); Mean Corpuscular Hemoglobin 32.1 pg (27.0-33.0); Mean Corpuscular Volume 95.3 fL (80.0-98.0); NRBC Abs Auto 0.000 X10*3/uL (0.0-0.012); NRBC Pct Auto 0.0 /100WBC (0.0-0.2); Platelet Count 286 X10*3/uL (160-400); Red Blood Count 4.46 X10*6/uL (4.20-5.50); White Blood Count 6.1 X10*3/uL (4.8-10.8)
[2025-06-22 11:01] LABS: Alanine Aminotransferase 40 U/L (0-31); Albumin Level 4.8 g/dL (3.5-5.0); Alkaline Phosphatase 71 U/L (39-117); Anion Gap 11 (12-20); Aspartate Amino Transferase 35 U/L (5-31); Blood Urea Nitrogen 21 mg/dL (9-16); Calcium 9.9 mg/dL (8.4-10.2); Carbon Dioxide 27 mmol/L (22-29); Chloride 106 mmol/L (96-108); Cholesterol 226 mg/dL (<200); Estimated Glomerular Filt Rate > 60; HDL Cholesterol 62 mg/dL (>40); Potassium 3.9 mmol/L (3.3-5.1); Sodium 140 mmol/L (135-145); Total Protein 7.8 g/dL (6.5-8.0); Triglycerides 84 mg/dL (<150)
[2025-06-22 11:11] LABS: Syphilis Screen Nonreactive (Nonreactive)
[2025-06-22 11:12] LABS: HBS Num1 0.77 mIU/mL (0-7.99); HBc Num1 0.10 S/CO (0.00-0.79); HBsAGNum1 0.29 S/CO (0.00-0.99); HIV Num 1 0.05 S/CO (0.00-0.99); Hepatitis A Antibody IgM 0.18 Index (0-0.79); Hepatitis B Surface Antigen Negative (Negative); ~HepC Num1 1.58 S/CO (0.00-0.79); ~Hepatitis A Antibody IgM Nonreactive (Nonreactive); ~Hepatitis B Surface Antibody NONREACTIVE (Nonreactive); ~Hepatitis C Antibody Reactive (Nonreactive)
[2025-06-22 11:19] LABS: Microalbum/Creatinine Ratio Ur 65.8 ug/mg cr (<30)
== END 2025-06-22 09:24 | disposition home or self-care (01) ==
LOC: HO.10HDL 09:23
PROVIDERS: Visit Provider Student in an Organized Health Care Education/Training Program
DX: Z00.00 Encounter for general adult medical examination without abnormal findings (principal); I10 Essential (primary) hypertension; E78.5 Hyperlipidemia, unspecified; M81.0 Age-related osteoporosis without current pathological fracture; G47.09 Other insomnia; Z79.899 Other long term (current) drug therapy
CPT/HCPCS: 36415; 80053; 80061; 82043; 82306; 82570; 83036; 84443; 85025; 86704; 86706; 86709; 86780; 86803; 87340; 87389; 96127

== ENCOUNTER 2025-07-03 07:47 | Outpatient (REF) | payer OTHER, SELFPAY ==
--- NOTE | ~2025-07-03 | MM_ITS ---
EXAMINATION: DXA BONE DENSITY AXIAL HISTORY: M81.0 - Age-related osteoporosis without current pathological fracture TECHNIQUE: [employer] Dual energy absorptiometry (DEXA) of the lumbar spine, total left hip, and femoral neck was performed. COMPARISON: Comparison is made with the prior examinations most recent dated June 2023. FINDINGS: The bone mineral density of the lumbar spine is 0.967 g/cm2, corresponding to a T-score of -1.8, and a Z-score of 0.2. This is indicative of osteopenia. This represents a BMD change of 12.8% compared to the prior exam. This is statistically significant. The bone mineral density of the left total hip is 0.801 g/cm2, corresponding to a T-score of -1.6, and a Z-score of -0.1. This is indicative of osteopenia. This represents a BMD change of 20.5% compared to the prior exam. This is statistically significant. The bone mineral density of the left femoral neck is 0.705 g/cm2, corresponding to a T-score of -2.1, and a Z-score of -0.7. This is indicative of osteopenia. This represents a BMD change of 17.3% compared to the prior exam. This is statistically significant. FRACTURE RISK: The FRAX index suggests a ten year probability of major osteoporotic fracture of 19.7%, and of hip fracture 4.4%. MM/XR DEXA axial skeleton IMPRESSION: Based on bone mineral density, and according to World Health Organization (WHO) criteria, the diagnosis is consistent with osteopenia based on lowest T score of -2.4 in the left femoral neck. Bone density is improved from prior exam. Treatment Recommendations: NOF guidelines recommend consideration for treatment in postmenopausal women and men age 50 and older presenting with the following: -A hip or vertebral (clinical or morphometric) fracture. -T-score less than or equal to -2.5 at the femoral neck or spine after appropriate evaluation to exclude secondary causes. -Low bone mass at the hip or spine and a 10-year fracture probability by FRAX of greater than or equal to 3% for hip fracture or greater than or equal to 20% for major osteoporotic fracture based on the [place] adapted WHO algorithm. Other Recommendations: All treatment decisions require clinical judgment and consideration of individual patient factors, including patient preferences, comorbidities, previous drug use, risk factors not captured in the FRAX model (e.g. frailty, falls, vitamin D deficiency, increased bone turnover, interval significant decline in bone density) and possible under or overestimation of fracture risk by FRAX. Additional medical evaluation for secondary cause of low bone mineral density may be appropriate. FUTURE SCAN RECOMMENDATION: People with diagnosed cases of osteoporosis or at high risk for fracture should have regular bone mineral density tests. For patients eligible for Medicare, routine testing is allowed once every 2 years. The testing frequency can be increased to one year for patients who have rapidly progressing disease, those who are receiving or discontinuing medical therapy to restore bone mass, or have additional risk factors. Statistically, 68% of repeat scans fall within 1 SD (+/- 0.010 g/cm2 for AP spine L1-L4) and 1 SD (+/- 0.012 g/cm2 for femur total) FRAX is a trademark of the [employer]'s [place] for Metabolic Bone Disease, a World Health Organization (WHO) Collaborating Center. Electronically signed by: Robina Bedolla MD 07/03/2025 08:38 AM [facility]
== END 2025-07-03 07:48 | disposition home or self-care (01) ==
LOC: HO.MAMMO 07:47
PROVIDERS: PCP Student in an Organized Health Care Education/Training Program; Visit Provider Internal Medicine
DX: M81.0 Age-related osteoporosis without current pathological fracture (principal); M85.89 Other specified disorders of bone density and structure, multiple sites
CPT/HCPCS: 77080

== ENCOUNTER → 2025-07-03 08:15 | Outpatient (BNV) | payer OTHER, SELFPAY | PROVIDERS: PCP Student in an Organized Health Care Education/Training Program; Visit Provider Radiology Diagnostic Radiology | DX: E28.39 Other primary ovarian failure (principal) | CPT/HCPCS: 77080 ==

== ENCOUNTER 2025-07-09 09:36 | Outpatient (AMB) | payer OTHER, SELFPAY ==
--- NOTE | 2025-07-09 09:36 | MHC.PC.OV ---
Vital Signs 07/09/25 09:44 Height 5 ft 2 in Weight 123 lb 4 oz BMI 22.5 BP 128/80 Blood Pressure Location Lt brachial Position Sitting Pulse 63 Pulse Source Pulse Oximeter Temp 97.8 F Temp Source Temporal Artery Scan Pulse Oximetry (%) 99 Oxygen Delivery Method Room Air Intake Visit Reasons: 2 WK F/U BP & Labs Spine Surgeon Required: No Accompanied by: Self / Same As Patient Allergies No Known Allergies Allergy (Verified 12/22/24 08:32) Medication List - Last Reconciled 07/09/25 by Irving Saunders MD alendronate 35 mg PO QWEEK amlodipine 10 mg PO DAILY atorvastatin (Lipitor) 20 mg PO BEDTIME nystatin 1 appl topical BID trazodone 100 mg PO BEDTIME 90 days Tobacco use date assessed: 07/09/25 Fall risk assessment: No Falls in past year Last assessed Fall Risk: 07/09/25 Dental Screening Dental Screen Date: 07/09/25 Did you have a dental visit in the last 12 months?: Yes Did you have a dental problem in the last 6 months where you did not have access to dental care?: No HPI HPI Comments History of Present Illness Details History of Present Illness The patient is a 65 year old individual presenting for a wellness visit, management of chronic conditions, and review of recent lab results and imaging. The patient has a history of hypertension, which was previously elevated with readings in the 150s, but is now well-controlled with a recent blood pressure of 128/80 mmHg on amlodipine 10 mg. For osteoporosis, the patient takes alendronate once a week and supplements with vitamin D with calcium daily. A recent bone density scan from 07/03 showed stable osteopenia, with the lowest T-score being -2.1 in the femoral neck. Recent blood work revealed hyperlipidemia, with a total cholesterol of 226 mg/dL and an LDL of 148 mg/dL, which has been persistently high. The patient's hemoglobin A1c was 5.8%, indicating prediabetes. There is a family history of a high A1c in the patient's mother. For sleep, the patient recently stopped taking Benadryl and started trazodone. Since this change, the patient reports waking up around 2:30 or 3:00 a.m. and having difficulty returning to a good quality sleep, totaling about five or six hours of sleep per night. The patient has also experienced significant sinus pressure since discontinuing Benadryl. Medical History: - Hypertension - Osteoporosis - Hyperlipidemia - Prediabetes - Insomnia Medications: - Amlodipine 10 mg for hypertension - Alendronate once weekly for osteoporosis - Vitamin D with calcium - Trazodone 100 mg for insomnia Family History: - Mother with high A1c Diagnostic Results: - Vitals: Blood pressure 128/80 mmHg. - Labs: - Blood counts: Normal. - Electrolytes: Normal. - Kidney function: Good. - Liver enzymes: Slightly elevated. - Vitamin D level: Good. - Thyroid levels: Good. - Total Cholesterol: 226 mg/dL. - LDL Cholesterol: 148 mg/dL. - Hemoglobin A1c: 5.8%. - Imaging: - Bone density scan (07/03/XXXX): Stable osteopenia with a lowest T-score of -2.1 in the femoral neck. Social History - Nutrition: The patient believes they have a decent diet but was counseled on diet modifications to manage hyperlipidemia and prediabetes, including reducing intake of carbohydrates, processed foods, red meat, and sugars. - Exercise: Advised to be more active. - Sleep: Reports approximately 5-6 hours of interrupted sleep per night while taking trazodone. [facility] Medical History (Updated 07/09/25 @ 10:20 by Irving Saunders MD) Sinusitis Osteopenia Prediabetes Annual physical exam Insomnia Fracture of left distal radius HTN (hypertension) History of right bundle branch block (RBBB) Surgical History Hx of colonoscopy (~03/05/22) Family History Mother No problems noted. Father No problems noted. 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 How many drinks containing alcohol do you have on a typical day when you are drinking?: 1 or 2 3. How often do you have six or more drinks on one occasion?: Never Total Score: 0 ARELY-7 AMB Questionnaire ARELY-7 Date ARELY - 7 assessed: 06/22/25 Source: Developed by Drs. Frankie Walker, Emily Li, Justin Lester and colleagues, with an educational errol from [employer]. Review of Systems Narrative Review of Systems - HEENT: Reports sinus pressure. - Psychiatric/Neurologic: Reports insomnia with difficulty maintaining sleep. All systems reviewed & are unremarkable except as reviewed in HPI and above Physical exam (Primary Care) Vital Signs: Last Vital Signs Temp 97.8 F 07/09/25 09:44 Pulse 63 07/09/25 09:44 BP 128/80 07/09/25 09:44 Pulse Ox 99 07/09/25 09:44 Oxygen Delivery Method Room Air 07/09/25 09:44 BMI result Body Mass Index 22.5 Tobacco/Smoking Status: Tobacco use Status Tobacco use date assessed 07/09/25 07/09/25 09:38 Patient Tobacco Use Status Never used Tobacco 07/09/25 09:38 e-Cigarette/Vaping Use Never Used 07/09/25 09:38 Thrive Assessment: Date of Thrive Assessment Date Thrive assessed 06/22/25 07/09/25 09:38 Narrative Physical Exam General: Alert and oriented, Well nourished, No acute distress. Eye: Pupils are equal, round and reactive to light, Intact accommodation, Extraocular movements are intact, Normal conjunctiva, Vision unchanged. HENT: Normocephalic, Atraumatic, Tympanic membranes are clear, Normal hearing, Oral mucosa is moist, No pharyngeal erythema, Ear canals patent. Respiratory: Lungs CTA bilaterally, No wheeze, Respirations are non-labored. Cardiovascular: Regular rate, Regular rhythm, S1 auscultated, S2 auscultated, No murmur, Good pulses equal in all extremities, Normal peripheral perfusion, No edema. Gastrointestinal: Soft, Non-tender, Non-distended, Normal bowel sounds, No organomegaly. Musculoskeletal: Normal range of motion, Normal strength, No tenderness, No swelling, No deformity, Normal gait. Integumentary: Warm, Dry, [place], Intact. Neurologic: Alert, Oriented, Normal sensory, Normal motor function, No focal defects, Cranial Nerves II-XII are grossly intact, Normal deep tendon reflexes. Psychiatric: Cooperative, Appropriate mood & affect, Normal judgment. Coding Level of Care Code Est Pt Level 4 (79063) Complex visit Add On G2211 Diagnoses Primary hypertension I10 Hypertension type: primary hypertension Hyperlipidemia, unspecified hyperlipidemia type E78.5 Hyperlipidemia type: unspecified Prediabetes R73.03 Osteopenia of multiple sites M85.89 Osteopenia location: multiple sites Other insomnia G47.09 Insomnia type: other insomnia Acute non-recurrent frontal sinusitis J01.10 Sinusitis location: frontal Chronicity: acute Recurrence: non-recurrent Assessment & Plan Assessment & Plan (1) HTN (hypertension): Comment: - Blood pressure is well-controlled at 128/80 mmHg, a significant improvement from previous readings. - The plan is to continue amlodipine 10 mg daily. Code(s): I10 - Essential (primary) hypertension Category: Medical Qualifiers: Hypertension type: primary hypertension Qualified Code(s): I10 - Essential (primary) hypertension (2) Hyperlipidemia: Comment: - Cholesterol remains high with an LDL of 148 mg/dL. - Due to the patient's age and co-existing hypertension, statin therapy is indicated. - A prescription for atorvastatin 20 mg nightly will be sent to the pharmacy. - The patient was counseled on diet and the potential for muscle cramps as a side effect. Code(s): E78.5 - Hyperlipidemia, unspecified Category: Medical Qualifiers: Hyperlipidemia type: unspecified Qualified Code(s): E78.5 - Hyperlipidemia, unspecified (3) Prediabetes: Comment: - The patient's A1c of 5.8% is in the prediabetic range. - Management will focus on lifestyle modifications. - The patient was counseled to reduce intake of carbohydrates, processed foods, red meat, and sugars to prevent progression to diabetes. Code(s): R73.03 - Prediabetes Category: Medical (4) Osteopenia: Comment: - A recent bone density scan shows stable osteopenia with a T-score of -2.1. - The plan is to continue weekly alendronate and daily supplementation with vitamin D and calcium. Code(s): M85.80 - Other specified disorders of bone density and structure, unspecified site Category: Medical Qualifiers: Osteopenia location: multiple sites Qualified Code(s): M85.89 - Other specified disorders of bone density and structure, multiple sites (5) Insomnia: Comment: - The patient reports interrupted sleep on trazodone 100 mg. - This may be partly due to rebound insomnia from discontinuing Benadryl. - The patient was advised to continue trazodone as the body may acclimatize over time. Code(s): G47.00 - Insomnia, unspecified Category: Medical Qualifiers: Insomnia type: other insomnia Qualified Code(s): G47.09 - Other insomnia (6) Sinusitis: Comment: - The patient reports sinus pressure after stopping Benadryl. - Recommended [id number], non-sedating loratidine or Zyrtec for symptomatic relief. - Using a humidifier was also suggested. Code(s): J32.9 - Chronic sinusitis, unspecified Category: Medical Qualifiers: Sinusitis location: frontal Chronicity: acute Recurrence: non-recurrent Qualified Code(s): J01.10 - Acute frontal sinusitis, unspecified Plan: Health Maintenance: - The patient has a mammogram scheduled this Wednesday. - Per the patient's [facility] provider, Pap smears are no longer needed due to being over age 65 and having three consecutive negative results. - The patient was counseled on dietary changes to manage hyperlipidemia and prediabetes, focusing on reducing carbohydrates, processed foods, red meat, and sugars. - Advised to increase physical activity. - Follow-up scheduled in six months. Patient was informed and verbally consented to the use of an ambient scribe for clinic note documentation during this visit. Plan I reviewed the patient's recent lab work and bone density scan results. I explained that while the blood pressure is well-controlled, the patient's cholesterol is high and the A1c is in the prediabetic range. I recommended starting atorvastatin 20 mg nightly for hyperlipidemia, discussing the benefits for risk reduction and the potential side effect of muscle pain. We discussed the importance of dietary interventions to manage the prediabetes and hyperlipidemia. I confirmed that the bone density is stable and that continuing alendronate and supplements is appropriate. Regarding the patient's new sinus pressure, I suggested [id number] loratidine. We also discussed the current sleep pattern on trazodone, and I advised continuing the medication as the body may still be adjusting after stopping Benadryl. We confirmed the patient's upcoming mammogram and the updated plan for cervical cancer screening. I advised a follow-up visit in six months. Medications: New atorvastatin (Lipitor) 20 mg PO BEDTIME 90 tabs 0RF Patient Instructions: - Continue to take your amlodipine 10 mg every day to keep your blood pressure under control. - You will start a new medication, atorvastatin 20 mg, to be taken every night to lower your cholesterol. Let us know if you experience any muscle cramps or pain. - Continue taking alendronate once a week for your bone health. - Continue taking trazodone 100 mg for sleep. Your body may need more time to get used to it. - Keep taking your vitamin D with calcium every day. - For your sinus pressure, you can try an pxwk-tsn-eurchrm, non-drowsy allergy medicine like loratidine (Claritin) or Zyrtec. Using a humidifier at home might also help. - Please focus on your diet to help lower your cholesterol and blood sugar. Try to eat fewer foods with sugar, red meat, and processed ingredients. - Go for your scheduled mammogram this Wednesday. - Please schedule a follow-up appointment to see me in six months.
[2025-07-09 09:44] VITALS: BP 128/80; PULSE 63; TEMP 36.6; O2SAT 99; BMI 22.5
--- OUTSIDE RECORDS SUMMARY | 2025-07-09 11:10 | XMS_ITS | Clinical Summary ---
Author Organization [facility] Address [address] [place] [address] Phone Care Team Providers Care Domestic Technician Name Role Phone Abram Eddy MD Primary Care Provider [phone] Social History Tobacco Use Types Packs/Day Years [...] AM EST [facility]ointment [facility] [address] [id number] Health Maintenance Due Date Last [...] year. Mammo Location: [facility], [address] [place] [address], [id number], . -------- FINAL REPORT -------- Dictated By: Jacinta Bravo Dictated Date: 07/10/2024 14:38 ET Assigned Physician: Jacinta Bravo Reviewed and Electronically Signed By: Jacinta Bravo Signed Date: 07/10/2024 14:41 ET Workstation ID: [id number] Transcribed By: Self Edit Transcribed Date: 07/10/2024 [...] year. Mammo Location: [facility], [address] [place] [address], [id number], . -------- FINAL REPORT -------- Dictated By: Jacinta Bravo Dictated Date: 07/10/2024 14:38 ET Assigned Physician: Jacinta Bravo Reviewed and Electronically Signed By: Jacinta Bravo Signed Date: 07/10/2024 14:41 ET Workstation ID: [id number] Transcribed By: Self Edit Transcribed Date: 07/10/2024 14:38 ET Abram Eddy MD IMG BI PROCEDURES Final Resul t from Last 3 Months or Most Recently Relevant to Health Maintenance Insurance Care Teams Domestic Technician Relationship Specialty Start Date End Date Abram Eddy MD [address] [place] [address] Dr [address] ANTHONY Barajas PCP - General Internal Medicine 06/04/24
--- OUTSIDE RECORDS SUMMARY | 2025-07-09 11:10 | XMS_ITS | Encounter Summary ---
Author Organization [facility] Address [address] [place] [address] Care Team Providers Care State Highway Police Officer Name Role Phone Abram Eddy MD Primary Care Provider [phone] Encounter Details Date Type Department Care Team (Latest Contact Info) Description 06/27/2024 Lab Requisition [facility] - Main Lab [address] [place] [phone] Leeanna Echavarria MD [address] [phone] Encounter for gynecological examination (general) (routine) without [...] AM EST Appointment [facility] [address] [place] [phone] documented as of this encounter Procedures Procedure Name Priority Date/Time Associated Diagnosis Comments PAP SMEAR Routine 06/26/2024 12:00 AM EST Encounter for gynecological examination (general) (routine) without abnormal findings documented in this encounter Results * Pap smear (06/26/2024 12:00 AM EST) Interpretation Negative for intraepithelial lesion or malignancy 07/04/2024 7:40 AM [facility] General Categorization Negative 07/04/2024 7:40 AM [facility] Other Findings Atrophy 07/04/2024 7:40 AM [facility] Specimen Adequacy Satisfactory for evaluation 07/04/2024 7:40 AM [facility] Pap Methodology Liquid Based Pap Test 07/04/2024 7:40 AM [facility] Disclaimer The Pap test is a screening test which carries an inherent false negative rate. These test results should be correlated with the patient's clinical findings and history. This Pap test was processed using an automated screening system. Technical cytopathology services provided by [facility], at [address] [place] [address] (CLIA # [id number]/Pedro Wiggins MD, Bench Mechanic.) 07/04/2024 7:40 AM [facility] Console Pap Interpretation Reported 07/04/2024 7:40 AM [facility] Brushing/Spatula Cervix uteri structure / Unknown 06/26/2024 06/27/2024 10:59 AM EST us Leeanna Echavarria MD LAB CYTOLOGY ORDERABLES Final Result [facility] [address] [place] [address], documented in this encounter Visit Diagnoses Diagnosis Encounter for gynecological examination (general) (routine) without abnormal findings Encounter for screening mammogram for breast cancer documented in this encounter Care Teams [employer] Police Officer Relationship Specialty Start Date End Date Abram Eddy MD [address] [place] [address] Dr Simon [place] PCP - General Internal Medicine 06/04/24 documented as of this encounter
--- OUTSIDE RECORDS SUMMARY | 2025-07-09 11:10 | XMS_ITS | Patient Health Record ---
Author Organization [facility] Address [address] [place] [phone] Care Team Providers Care Product Sales Representative Name Role Phone Surjit (RETIRED) Abram CERVANTES Primary Care Provide r Danny Warren Jr Unavailable Allergies No Known Allergies Reason For Referral No Information Medications Medication SIG (Take, Route, Frequency, Duration) Notes Start Date End Date Status MiraLax (colon prep) 17 GM/SCOOP Powder mixed with Gatorade or Crystal Light Orally begin at 5:00 p.m. the day before the procedure; Duration: 1 day 01/28/2022 Active amLODIPine Besylate 5 MG Tablet TAKE 1 TABLET BY MOUTH EVERY DAY Oral; Duration: 90 Active Vitamin D (Cholecalciferol) 10 MCG (400 UNIT) Tablet Chewable 1 tablet Orally Once a day; Duration: 30 day(s) 01/28/2022 Active Benadryl 25 MG Capsule 1 capsule at bedt ephraim as needed Orally Once a day; Duration: 30 day(s) 01/28/2022 Active Immunizations Vaccine Route Administration Date Status Comme nts Influenza Unknown 11/27/2020 Administered Social History Tobacco Use: Social History Observation Description Date Details (start date - stop date) Never Smoker NA - NA Social History Drugs/Alcohol: Social Info Question Answer Notes Alcohol Screen Did you have a drink containing alcohol in the past year? Yes How often did you have a drink containing alcohol in the past year? 4 or more times a week (4 points) How many drinks did you have on a typical day when you were drinking in the past year? 1 or 2 drinks (0 point) How often did you have 6 or more drinks on one occasion in the past year? 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 Problems Problem Type SNOMED Code ICD Code Onset Dates Problem Status W/U Status Risk Notes Problem Colon cancer screening (078135943) Colon cancer screening (Z12.11) Active confirmed Problem Pre-procedure evaluation check (113394956) Encounter for other preprocedural examination (Z01.818) Active confirmed Plan Of Treatment Future Test Test Name Order Date COLONOSCOPY 01/28/2022 Insurance Providers Payer Name Payer Address Payer Phone Subscriber Number Group Number Insured Name Patient Relationship to Insured Coverage Start Date Coverage End Date [facility] [address] [facility] [place] [phone] [id number] ELIER LOPEZ Self - patient is the insured Medical (General) History Medical History History ICD Code Hypertension Sinus problems Covid 19 infection 10/07 Surgical History Surgery Date(Month/Year)
== END 2025-07-09 10:11 | disposition home or self-care (01) ==
LOC: HO.HMCHD 09:37
PROVIDERS: PCP Student in an Organized Health Care Education/Training Program; Visit Provider Student in an Organized Health Care Education/Training Program
DX: I10 Essential (primary) hypertension (principal); E78.5 Hyperlipidemia, unspecified; R73.03 Prediabetes; M85.89 Other specified disorders of bone density and structure, multiple sites; G47.09 Other insomnia; J01.10 Acute frontal sinusitis, unspecified

== ENCOUNTER 2025-08-02 10:04 | Outpatient (AMB) | payer OTHER, SELFPAY ==
[2025-08-02 10:08] VITALS: BP 130/74; PULSE 63; TEMP 36.6; O2SAT 98; BMI 22.3
--- NOTE | 2025-08-02 10:08 | MHC.PC.OV ---
Vital Signs 08/02/25 10:08 Height 5 ft 2 in Weight 122 lb BMI 22.3 BP 130/74 Blood Pressure Location Rt brachial Position Sitting Pulse 63 Pulse Source Pulse Oximeter Temp 97.8 F Temp Source Temporal Artery Scan Pulse Oximetry (%) 98 Oxygen Delivery Method Room Air Intake Visit Reasons: Side affect on medication House Visitor Required: No Accompanied by: Self / Same As Patient Allergies No Known Allergies Allergy (Verified 08/02/25 10:08) Medication List - Last Reconciled 08/02/25 by Irivng Saunders MD alendronate 35 mg PO QWEEK fluticasone propionate 50 mcg/actuation (Allergy Relief (fluticasone)) 1 spray intranasal BID hydrochlorothiazide 12.5 mg PO DAILY nystatin 1 appl topical BID trazodone 100 mg PO BEDTIME 90 days Tobacco use date assessed: 08/02/25 Fall risk assessment: No Falls in past year Last assessed Fall Risk: 08/02/25 Dental Screening Dental Screen Date: 08/02/25 Did you have a dental visit in the last 12 months?: Yes Did you have a dental problem in the last 6 months where you did not have access to dental care?: No HPI HPI Comments History of Present Illness Details History of Present Illness The patient is a 65 year old female presenting with a one-week history of bilateral ankle swelling, which is more pronounced on the left side. Associated symptoms include some dark urine, headache, sinus pressure, and difficulty sleeping. She denies severe muscle pain but reports one episode of calf cramps one night. The patient notes that these symptoms have seemed to start since she began taking atorvastatin. Her current medications include atorvastatin 20 mg, amlodipine 10 mg, nystatin, trazodone, and alendronate. The dose of her amlodipine was recently increased. She has been taking [id number]-fxd-[id number] Claritin and using a saline spray for her sinus symptoms. Her medical history is significant for prediabetes, with a recent A1c of 5.8, and she is attempting to make dietary changes by cutting back on sweets and carbohydrates. Recent lab work from less than a month ago showed her thyroid levels were normal. Medical History: - Hypertension - Hypercholesterolemia - Prediabetes - Osteoporosis/Osteopenia (inferred from alendronate use) - Insomnia Medications: - Atorvastatin 20 mg for hypercholesterolemia - Amlodipine 10 mg for hypertension - Nystatin - Trazodone for sleep - Alendronate - Claritin ([id number]) - Saline spray (wppp-uam-lxohgap) Diagnostic Results: - Labs: Thyroid levels were fine less than a month ago. - Labs: A1c is 5.8, indicating prediabetes. Social History - Diet: The patient is attempting to reduce her intake of sweets and carbohydrates. [facility] Medical History (Updated 08/02/25 @ 10:37 by Irving Saunders MD) Dark urine Swelling of lower extremity Muscle pain Sinusitis Osteopenia Prediabetes Annual physical exam Insomnia Fracture of left distal radius HTN (hypertension) History of right bundle branch block (RBBB) Surgical History Hx of colonoscopy (~03/05/22) Family History (Updated 08/02/25 @ 10:14 by Zuri Vargas MA) Mother No problems noted. Father No problems noted. 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 Frankie Walker, Emily Li, Justin Lester and colleagues, with an educational errol from [employer]. Review of Systems Narrative Review of Systems - Constitutional: Denies difficulty breathing. - HEENT: Reports headache and sinus pressure. - Musculoskeletal: Reports bilateral ankle swelling, which has been present for about a week and is worse on the left. - Musculoskeletal: Reports a single episode of calf cramps at night. - Musculoskeletal: Denies severe muscle pains or muscle breakdown. - Genitourinary: Reports slightly dark urine. - Neurological: Reports trouble sleeping. All systems reviewed & are unremarkable except as reviewed in HPI and above Physical exam (Primary Care) Vital Signs: Last Vital Signs Temp 97.8 F 08/02/25 10:08 Pulse 63 08/02/25 10:08 BP 130/74 08/02/25 10:08 Pulse Ox 98 08/02/25 10:08 Oxygen Delivery Method Room Air 08/02/25 10:08 BMI result Body Mass Index 22.3 Tobacco/Smoking Status: Tobacco use Status Tobacco use date assessed 08/02/25 08/02/25 10:09 Patient Tobacco Use Status Never used Tobacco 08/02/25 10:09 e-Cigarette/Vaping Use Never Used 08/02/25 10:09 Thrive Assessment: Date of Thrive Assessment Date Thrive assessed 06/22/25 08/02/25 10:09 Narrative Physical Exam General: +Alert and oriented, Well nourished, No acute distress. Eye: Pupils are equal, round and reactive to light, Intact accommodation, Extraocular movements are intact, Normal conjunctiva, Vision unchanged. HENT: Normocephalic, Atraumatic, Tympanic membranes are clear, Normal hearing, Oral mucosa is moist, No pharyngeal erythema, Ear canals patent. Respiratory: Lungs CTA bilaterally, No wheeze, Respirations are non-labored. Cardiovascular: Regular rate, Regular rhythm, S1 auscultated, S2 auscultated, No murmur, Good pulses equal in all extremities, Normal peripheral perfusion, 1 to 2+ edema in ankles up to calves bilaterally. Gastrointestinal: Soft, Non-tender, Non-distended, Normal bowel sounds, No organomegaly. Musculoskeletal: Normal range of motion, Normal strength, No tenderness, No swelling, No deformity, Normal gait. Integumentary: Warm, Dry, [place], Intact. Neurologic: Alert, Oriented, Normal sensory, Normal motor function, No focal defects, Cranial Nerves II-XII are grossly intact, Normal deep tendon reflexes. Psychiatric: Cooperative, Appropriate mood & affect, Normal judgment. Coding Level of Care Code Est Pt Level 4 (26111) Add On Problem Visit Only Diagnoses Swelling of lower extremity M79.89 Primary hypertension I10 Hypertension type: primary hypertension Dark urine R82.998 Hyperlipidemia, unspecified hyperlipidemia type E78.5 Hyperlipidemia type: unspecified Acute non-recurrent frontal sinusitis J01.10 Sinusitis location: frontal Chronicity: acute Recurrence: non-recurrent Other insomnia G47.09 Insomnia type: other insomnia Prediabetes R73.03 Assessment & Plan Assessment & Plan (1) Swelling of lower extremity: Comment: - The edema is likely medication-induced, possibly secondary to the recent increase in amlodipine dose or the new initiation of atorvastatin. - Other causes such as cardiac dysfunction are also being considered. - The plan is to stop both amlodipine and atorvastatin. - An ultrasound of the heart will be ordered to evaluate cardiac function if there is no improvement with discontinuation of medication - The patient was advised on leg elevation and using compression stockings. Code(s): M79.89 - Other specified soft tissue disorders Category: Medical (2) HTN (hypertension): Comment: - To manage blood pressure after stopping amlodipine, the patient will be started on hydrochlorothiazide 12.5 mg daily. - A 14-day supply will be prescribed, and blood pressure will be reassessed at the follow-up visit. Code(s): I10 - Essential (primary) hypertension Category: Medical Qualifiers: Hypertension type: primary hypertension Qualified Code(s): I10 - Essential (primary) hypertension (3) Dark urine: Comment: - This is concerning for possible rhabdomyolysis related to atorvastatin use, despite the patient's denial of severe muscle pain. - Blood work, including a creatine kinase level and liver function tests, along with a urinalysis, will be performed to investigate for muscle breakdown. Code(s): R82.998 - Other abnormal findings in urine Category: Medical (4) Hyperlipidemia: Comment: - Atorvastatin will be held for now to evaluate its role in the patient's current symptoms. - Alternative treatments will be considered after the acute issues are resolved. Code(s): E78.5 - Hyperlipidemia, unspecified Category: Medical Qualifiers: Hyperlipidemia type: unspecified Qualified Code(s): E78.5 - Hyperlipidemia, unspecified (5) Sinusitis: Comment: - The patient has tried Claritin and saline spray with limited relief. - She will be prescribed a Flonase spray to help with congestion. Code(s): J32.9 - Chronic sinusitis, unspecified Category: Medical Qualifiers: Sinusitis location: frontal Chronicity: acute Recurrence: non-recurrent Qualified Code(s): J01.10 - Acute frontal sinusitis, unspecified (6) Insomnia: Comment: - The patient will continue taking trazodone and is advised to try adding melatonin up to 10 mg for sleep. Code(s): G47.00 - Insomnia, unspecified Category: Medical Qualifiers: Insomnia type: other insomnia Qualified Code(s): G47.09 - Other insomnia (7) Prediabetes: Comment: - The patient was counseled on dietary modifications, including reducing sweets and carbohydrates, with an A1c goal of under 5.7. Code(s): R73.03 - Prediabetes Category: Medical Plan: Health Maintenance: - Prediabetes: The patient reports she is trying to cut back on sweets and carbohydrates to manage her prediabetic status, with an A1c of 5.8. - Counseled to aim for an A1c under 5.7. Patient was informed and verbally consented to the use of an ambient scribe for clinic note documentation during this visit. Plan I discussed with the patient that her primary complaint of swollen ankles could be due to several causes, including aging, thyroid issues, heart problems, or medication side effects. Given the recent start of atorvastatin and an increased dose of amlodipine, I explained that these medications are the most likely cause. We agreed to stop both medications for now. I informed her that I will start her on a water pill, hydrochlorothiazide, to help with the swelling and to manage her blood pressure. I also explained the need for blood work and a urine test to investigate the dark urine she reported, specifically to check for muscle breakdown from the atorvastatin. Additionally, I let her know that Iwould order an ultrasound of her heart to ensure there are no underlying cardiac issues contributing to the fluid buildup if there is no improvement with discontinuation of medications. We discussed management for her sinus pressure and sleep issues, and I scheduled a follow-up appointment in three weeks to reassess her condition. Orders: Orders Creatine Kinase Total Today M79.10 - Myalgia, unspecified site Liver Panel Today M79.10 - Myalgia, unspecified site UA CC w/rflx Micro + Cult Today M79.10 - Myalgia, unspecified site Medications: New hydrochlorothiazide 12.5 mg PO DAILY 14 caps 0RF fluticasone propionate 50 mcg/actuation (Allergy Relief (fluticasone)) administer into each nostril 1 spray intranasal BID 16 grams 0RF Discontinued amlodipine Discontinued Reason: Doctor's Order 10 mg PO DAILY 90 tabs 1RF atorvastatin (Lipitor) Discontinued Reason: Doctor's Order 20 mg PO BEDTIME 90 tabs 0RF Patient Instructions: - Stop taking your amlodipine and atorvastatin for now. - Start taking hydrochlorothiazide 12.5 mg every day in the morning. - Elevate your legs when you can and consider using compression stockings to help with the swelling. - Please go to the lab today for blood work and a urine test. - Use the prescribed Flonase spray for your sinus congestion. - For sleep, you may try taking melatonin (up to 10 mg) along with your usual trazodone. - Your follow-up appointment is scheduled for three weeks from now.
--- OUTSIDE RECORDS SUMMARY | 2025-08-02 12:23 | XMS_ITS | Encounter Summary ---
Author Organization [facility] Address [address] [place] [address] Care Team Providers Care Distribution Driver Name Role Phone Abram Eddy MD Primary Care Provider [phone] Encounter Details Date Type Department Care Team (Latest Contact Info) Description 06/27/2024 Lab Requisition [facility] [address] [place] [phone] Leeanna Echavarria MD [address] [phone] Encounter for gynecological examination (general) (routine) without [...] lesion or malignancy 07/04/2024 7:40 AM EST [facility] at 0740 EST General Categorization Negative 07/04/2024 7:40 AM [facility] Other Findings Atrophy 07/04/2024 7:40 [...] cytopathology services provided by [facility], at [address] [place] [id number] (CLIA # [id number]/Pedro Wiggins MD, Vault Custodian.) 07/04/2024 7:40 AM [facility] Console Pap Interpretation Reported 07/04/2024 7:40 AM [facility] Brushing/Spatula Cervix uteri structure / Unknown 06/26/2024 06/27/2024 10:59 AM EST us Leeanna Echavarria MD LAB CYTOLOGY ORDERABLES Final Result [facility] [address] [place] [address], documented in this encounter Visit Diagnoses Diagnosis Encounter for gynecological examination (general) (routine) without abnormal findings documented in this encounter Care Teams Distribution Driver Relationship Specialty Start Date End Date Abram Eddy MD [address] [place] [address] Dr Simon MA PCP - General Internal Medicine 06/04/24 documented as of this encounter
--- OUTSIDE RECORDS SUMMARY | 2025-08-02 12:23 | XMS_ITS | Clinical Summary ---
Author Organization [facility] Address [address] [place] [phone] Phone Care Team Providers Care Recreation Program Specialist Name Role Phone Abram Eddy MD Primary Care Provider [phone] Encounters Date Type Department Care Team Description 07/13/2025 7:00 AM EST - 07/13/2025 11:59 PM EST Hospital [facility] at [address] [phone] Encounter for screening mammogram for breast cancer [...] 2025 06/16/2023, 07/11/2021, 12/07/2020, Additional history exists Breast Cancer Screening 07/13/2027 07/13/20, 07/10/2024, 06/26/2024, Additional history exists RSV Immunization Adult Patients (1 - 1-dose 75+ series) 2034 Influenza Vaccine Completed 07/08/2025, 11/27/2020 HIB Vaccines Aged Out No longer eligi [...] Date/Time Associated Diagnosis Comments MG MAMMO DIGITAL SCREENING W WOLF BILAT Routine 07/13/2025 7:35 AM EST Encounter for screening mammogram for breast cancer from Last 3 Months Results * MG Mammo Digital Screening w Wolf bilat (07/13/2025 7:35 AM EST) Anatomical Region Laterality Modality Breast Bilateral Mammography 07/13/2025 7:41 AM EST Impressions 07/13/2025 7:44 AM EST No mammographic evidence of malignancy. A negative mammogram in the presence of a clinically suspicious palpable abnormality does not preclude the possibility of malignancy or alter the indications for biopsy. PQRI CPT II 3342F Code 25078, 61808 PQRI 225 CPT II 7025F TISSUE DENSITY: The breasts are heterogeneously dense, which may obscure small masses. (BI-RADS category C) IMPRESSION: Benign. BI-RADS CATEGORY: 2 - BENIGN RECOMMENDATION: Screening bilateral mammogram is recommended in 1 year. Mammo Location: [facility], [address] [place] [id number] -------- FINAL REPORT -------- Dictated By: Jame Martin Dictated Date: 07/13/2025 07:41 ET Assigned Physician: Jame Martin Reviewed and Electronically Signed By: Jame Martin Signed Date: 07/13/2025 07:44 ET Workstation ID: [id number] Transcribed By: Self Edit Transcribed Date: 07/13/2025 07:41 ET Narrative 07/13/2025 7:44 AM EST CLINICAL: The patient is a 65 years Female presenting for routine screening mammography. COMPARISON: Most recently 07/10/2024 and most remotely 03/19/2018. TECHNIQUE: Full-field digital mammography of the breasts bilaterally consisting of tomosynthesis in MLO and CC projection is performed in the mgMEDIA 2000-D unit. Computer aided detection utilizing the iCAD system was utilized. FINDINGS: The breasts are again seen to be composed of a combination of fatty and moderately dense fibroglandular elements. A few scattered benign calcifications are again seen bilaterally. There is no suspicious cluster of microcalcifications, mass, or area of architectural distortion. There is no skin thickening or nipple retraction. Procedure Note Jame Martin MD - 07/13/2025 CLINICAL: The patient is a 65 years Female presenting for routinescreening mammography. COMPARISON: Most recently 07/10/2024 and most remotely 03/19/2018. TECHNIQUE: Full-field digital mammography of the breasts bilaterallyconsisting of tomosynthesis in MLO and CC projection is performed in themgMEDIA 2000-D unit. Computer aided detection utilizing the iCADsystem was utilized. FINDINGS: The breasts are again seen to be composed of a combination offatty and moderately dense fibroglandular elements. A few scatteredbenign calcifications are again seen bilaterally. There is no suspiciouscluster of microcalcifications, mass, or area of architectural distortion.There is no skin thickening or nipple retraction. IMPRESSION: No mammographic evidence of malignancy. A negative mammogram in the presence of a clinically suspicious palpableabnormality does not preclude the possibility of malignancy or alter theindications for biopsy. PQRI CPT II 3342F Code 75364, 98826 PQRI 225 CPT II 7025F TISSUE DENSITY: The breasts are heterogeneously dense, which may obscuresmall masses. (BI-RADS category C) IMPRESSION: Benign. BI-RADS CATEGORY: 2 - BENIGN RECOMMENDATION: Screening bilateral mammogram is recommended in 1 year. Mammo Location: [facility], [address] [place] [id number] -------- FINAL REPORT -------- Dictated By: Jame Martin Dictated Date: 07/13/2025 07:41 ET Assigned Physician: Jame Martin Reviewed and Electronically Signed By: Jame Martin Signed Date: 07/13/2025 07:44 ET Workstation ID: [id number] Transcribed By: Self Edit Transcribed Date: 07/13/2025 07:41 ET us Self Referral Sppl IMG BI PROCEDURES Final Resul t from Last 3 Months Insurance [facility] Care Teams Recreation Program Specialist Relationship Specialty Start Date End Date Abram Eddy MD [address] [place] [address] Dr Simon MA PCP - General Internal Medicine 06/04/24
--- OUTSIDE RECORDS SUMMARY | 2025-08-02 12:23 | XMS_ITS | Patient Health Record ---
Author Organization [facility] Address [address] [place] [phone] Care Team Providers Care Insurance Verification Specialist Name Role Phone Surjit (RETIRED) Arbam CERVANTES Primary Care Provide r Danny Warren [...] Status Risk Notes Problem Colon cancer screening (820506334) Colon cancer screening (Z12.11) Active confirmed Problem Pre-procedure evaluation check (618756910) Encounter for other preprocedural examination (Z01.818) Active confirmed Plan Of Treatment Future Test Test Name Order Date COLONOSCOPY 01/28/2022 Insurance Providers Payer Name Payer Address Payer Phone Subscriber Number Group Number Insured Name Patient Relationship to Insured Coverage Start Date Coverage End Date [facility] [address] [facility] [place] [phone] [id number] ELIER LOPEZ Self - patient is the insured Medical (General) History Medical History History ICD Code Hypertension Sinus problems Covid 19 infection 10/07 Surgical History Surgery Date(Month/Year)
== END 2025-08-02 10:31 | disposition home or self-care (01) ==
LOC: HO.HMCHD 10:05
PROVIDERS: PCP Student in an Organized Health Care Education/Training Program; Visit Provider Student in an Organized Health Care Education/Training Program
DX: M79.89 Other specified soft tissue disorders (principal); I10 Essential (primary) hypertension; R82.998 Other abnormal findings in urine; E78.5 Hyperlipidemia, unspecified; J01.10 Acute frontal sinusitis, unspecified; G47.09 Other insomnia; R73.03 Prediabetes

== ENCOUNTER 2025-08-02 11:02 | Outpatient (REF) | payer OTHER, SELFPAY ==
[2025-08-02 13:20] LABS: Appearance Urine Clear; Glucose Urine UA Negative (Negative); PH 7.0 (5.0-9.0); Specific Gravity - Urine <= 1.005 (1.005-1.025); UMIC TRIGGER UACC YES
[2025-08-02 13:34] LABS: UACC Culture Trigger YES
[2025-08-02 13:35] LABS: Alanine Aminotransferase 49 U/L (0-31); Albumin Level 4.6 g/dL (3.5-5.0); Alkaline Phosphatase 70 U/L (39-117); Aspartate Amino Transferase 34 U/L (5-31); Total Protein 7.1 g/dL (6.5-8.0)
== END 2025-08-02 11:03 | disposition home or self-care (01) ==
LOC: HO.10HDL 11:02
PROVIDERS: Visit Provider Student in an Organized Health Care Education/Training Program
DX: M79.10 Myalgia, unspecified site (principal)
CPT/HCPCS: 36415; 80076; 81001; 82550; 87086